=== PATIENT | female | born 1970 | race Caucasian/White ===

== ENCOUNTER 2024-04-23 07:21 | Inpatient (IN) | payer OTHER ==
[2024-04-23] VITALS (19 sets, daily range): BP systolic 94–133; BP diastolic 41–74; PULSE 64–123; RESP 17–24; TEMP 98.2–98.6; O2SAT 94–100
[~2024-04-23] VITALS: Ht 160 cm; Wt 113.6 kg
[2024-04-23] MEDS: ALBUTEROL SULF 2.5 MG/0.5ML(0.5%) NEB SOLN NEB ONE (07:37)
[2024-04-23] MEDS: ALBUTEROL SULF 2.5 MG/0.5ML(0.5%) NEB SOLN ONE (07:37)
[2024-04-23] MEDS: IPRATROPIUM BROM 0.5 MG/2.5ML INH SOL NEB ONE (07:40)
[2024-04-23] MEDS: MAGNESIUM SULFATE 1GM/100ML 100 ML IV ONE (07:41)
[2024-04-23] MEDS: methylPREDNISolone SOD SUCC 125 MG/2 ML VL IV ONE (07:41)
[2024-04-23 08:05] LABS: Rapid Influenza A Negative (Negative); Rapid Influenza B Negative (Negative)
[2024-04-23 08:05] LABS: Basophils # (auto) 0.1 10 ^3/uL (0-0.2); Basophils % (auto) 0.8 % (0.0-2.0); Eosinophils # (auto) 0.2 10 ^3/uL (0-0.8); Eosinophils % (auto) 2.4 % (0.0-7.0); Hematocrit 39.1 % (36.0-46.0); Hemoglobin 12.9 g/dL (12.2-16.2); Lymphocytes % (auto) 27.9 % (10.0-50.0); Mean Corpuscular Hemoglobin 30.3 pg (28.0-32.0); Mean Corpuscular Hgb Conc. 32.9 g/dL (32.0-36.0); Mean Corpuscular Volume 92.2 fL (80.0-100.0); Monocytes # (auto) 0.5 10 ^3/uL (0-1.3); Monocytes % (auto) 6.6 % (0.0-12.0); Neutrophils # (auto) 4.4 10 ^3/uL (1.6-8.6); Neutrophils % (auto) 62.3 % (37.0-80.0); Nucleated Red Blood Cells % 0.1 %; Platelet Count (auto) 189 10^3/uL (140-450); Red Blood Cells 4.24 10^6/uL (4.0-5.20); Red Cell Distribution Width 14.7 % (11.8-14.3)
[2024-04-23 08:06] LABS: COVID19 ANTIGEN SOFIA FIA NEGATIVE (NEGATIVE)
--- NOTE | 2024-04-23 08:06 | DVH ---
CHEST RADIOGRAPH Indication: sob Technique: Single frontal view of the chest was obtained Comparison: None FINDINGS: Lines and Tubes: None Lungs: No focal consolidation. Pleura: No effusion. No pneumothorax. Cardiomediastinal contours: Unremarkable Bones: No acute osseous abnormality. IMPRESSION: No acute cardiopulmonary disease.
--- NOTE | 2024-04-23 08:12 | ED.PDOC ---
SOB-HPI HPI Comments 53 y/o F, brought in by ambulance presents to the ED for CC of shortness of breath. Per EMS, patient is coming from home where she began to experience severe shortness of breath x hours. Per EMS, upon arrival to scene patient was found to be stating at 53% on room air; patient was placed on CPAP and stating in the 70's. Upon arrival to ED, patient stating and maintaining at low 90's. Patient is on 3L supplemental oxygen at home. No other symptoms or modifiers at this time. Chief Complaint: Shortness of Breath Time Seen by MD: 07:20 Primary Care Provider: UNKNOWN Reviewed notes: Nurses Notes, Obiee Architect Notes, Medications, Allergies Information Source: Patient, Emergency Med Personnel Mode of Arrival: EMS Severity: Moderate Timing: Hours Duration: Since onset Context: At Rest PE Risk Factors: None History of: COPD Prehospital treatment: None Modifying Factors: Nothing Associated Signs and Symptoms: None Past Medical History PAST MEDICAL HISTORY: COPD Surgical History: Denies all surgeries NEWS WRITER History: Unknown Family History Family History: Unknown Social History Smoker: Non-Smoker Alcohol: Denies ETOH Use Drugs: Denies Drug Use Lives In: Home Constitutional: denies: chills, diaphoresis, fatigue, fever, malaise, sweats, weakness, others EENTM: denies: blurred vision, double vision, ear bleeding, ear discharge, ear drainage, ear pain, ear ringing, eye pain, eye redness, hearing loss, mouth pain, mouth swelling, nasal discharge, nose bleeding, nose congestion, nose pain, photophobia, tearing, throat pain, throat swelling, voice changes, others Respiratory: reports: shortness of breath; denies: cough, hemoptysis, orth opnea, SOB at rest, SOB with excertion, stridor, wheezing, others Cardiovascular: denies: chest pain, dizzy spells, diaphoresis, Dyspnea on exertion, edema, irregular heart beat, left arm pain, lightheadedness, palpitations, PND, syncope, others Gastrointestinal: denies: abdomen distended, abdominal pain, blood streaked bowels, constipated, diarrhea, dysphagia, difficulty swallowing, hematemesis, melena, nausea, poor appetite, poor fluid intake, rectal bleeding, rectal pain, vomiting, others Genitourinary: denies: abnormal vagina bleeding, burning, dyspareunia, dysuria, flank pain, frequency, hematuria, incontinence, pain, , vagina discharge, urgency, others Neurological: denies: dizziness, fainting, headache, left sided numbness, left sided weakness, numbness, paresthesia, pre-existing deficit, right sided numbness, right sided weakness, seizure, speech problems, tingling, tremors, weakness, others Musculoskeletal: denies: back pain, gout, joint pain, joint swelling, muscle pain, muscle stiffness, neck pain, others Integumetry: denies: bruises, change in color, change in hair/nails, dryness, laceration, lesions, lumps, rash, wounds, others Allergic/Immunocompromised: denies: Difficulty Healing, Frequent Infections, Hives, Itching, others Hematologic/Lymphatic: denies: anemia, blood clots, easy bleeding, easy bruising, swollen glands, others Endocrine: denies: excessive hunger, excessive sweating, excessive thirst, excessive urination, flushing, intolerance to cold, intolerance to heat, unexplained weight gain, unexplained weight loss, others Psychiatric: denies: anxiety, bipolar disorder, depression, hopeless, panic disorder, schizophrenia, sleepless, suicidal, others All Other Systems: Reviewed and Negative Physical Exam General Appearance: Moderate Distress HEENT: Normal ENT Inspection, Pharynx Normal, TMs Normal Neck: Full Range of Motion, Non-Tender, Normal, Normal Inspection Respiratory: Accessory Muscle Use, Respiratory Distress Cardiovascular: No Edema, No JVD, No Murmur, No Gallop, Normal Peripheral Pulses, Regular Rate/Rhythm Breast Exam: Deferred Gastrointestinal: No Organomegaly, Non Tender, No Pulsatile Mass, Normal Bowel Sounds, Soft Genitalia: Deferred Pelvic: Deferred Rectal: Deferred Extremities: No calf tenderness, Normal capillary refill, Normal inspection, Normal range of motion, Non-tender, No pedal edema Musculoskeletal : Apperance: Normal Neurologic: Alert, No Motor Deficits, No Sensory Deficits Cerebellar Function: NOT DONE Reflexes: NOT DONE Skin: Dry, Normal Color, Warm Peripheral Pulses: 3+ Radial (R), 3+ Radial (L) Lymphatic: No Adenopathy Was a procedure done? Was a procedure done?: No Differential Dx Differential Diagnosis: Anxiety, Asthma, Bronchitis, CHF, COPD, Hyperventilation, Respiratory Distress X-Ray, Labs, Meds, VS Vital Signs Date Time Temp Pulse Resp B/P (MAP) Pulse Ox O2 Delivery O2 Flow Rate FiO2 04/23/24 08:30 110 140/91 Facial BiPAP Mask 50 04/23/24 08:00 124 04/23/24 07:57 123 24 95 Non-Rebreather 10 N/A 04/23/24 07:56 97.6 123 36 140/91 (107) 97 97.6 04/23/24 07:41 22 99 Non-Rebreather 15 N/A 04/23/24 07:28 114 04/23/24 07:21 99.4 114 30 140/91 (107) 90 Lab Test 04/23/24 08:55 04/23/24 08:40 04/23/24 08:25 04/23/24 07:37 Range/Units Blood Gas Specimen Type Arterial Blood Gas Sample Site Right radial Blood Gas Patient Temperature 37.0 Arterial Blood Date Drawn [id number] Arterial Blood pH 7.279 L 7.350-7.450 Arterial Blood Partial Pressure CO2 90.8 *H 32.0-45.0 mmHg Arterial Blood Partial Pressure O2 79.0 L 83.0-108.0 mmHg Arterial Blood HCO3 41.6 H 21.0-28.0 mmol/L Arterial Blood Oxygen Saturation 95.1 94.0-98.0 % Arterial Blood Base Excess 11.1 H -2.0-3.0 mmol/L Arterial Blood Oxyhemoglobin 89.9 L 94.0-98.0 % Arterial Blood Carboxyhemoglobin 5.2 H 0.5-1.5 % Arterial Blood Methemoglobin 0.3 0.0-1.5 % Song Test Yes Blood Gas Total Hemoglobin 13.30 12.0-16.0 g/dL Blood Gas Modality Mask - bipap FiO2 % 50.0 Blood Gas EPAP 7 Blood Gas IPAP 15 Blood Gas Critical Value Read Back Yes Blood Gas Notified Whom Md jerry worthington Blood Gas Notified Time [id number] Blood Gas Notified By Digital Community Manager juarez quintero Lactic Acid Level 1.0 0.4-2.0 mmol/L Troponin I High Sensitivity 4 </=34 ng/L Influenza Type A Antigen Negative Negative Influenza Type B Antigen Negative Negative SARS-CoV-2 Antigen (Rapid) Negative NEGATIVE Test 04/23/24 07:30 Range/Units White Blood Count 7.0 4.4-10.8 10^3/uL Red Blood Count 4.24 4.0-5.20 10^6/uL Hemoglobin 12.9 12.2-16.2 g/dL Hematocrit 39.1 36.0-46.0 % Mean Corpuscular Volume 92.2 80.0-100.0 fL Mean Corpuscular Hemoglobin 30.3 28.0-32.0 pg Mean Corpuscular Hemoglobin Concent 32.9 32.0-36.0 g/dL Red Cell Distribution Width 14.7 H 11.8-14.3 % Platelet Count 189 140-450 10^3/uL Mean Platelet Volume 9.8 6.9-10.8 fL Neutrophils (%) (Auto) 62.3 37.0-80.0 % Lymphocytes (%) (Auto) 27.9 10.0-50.0 % Monocytes (%) (Auto) 6.6 0.0-12.0 % Eosinophils (%) (Auto) 2.4 0.0-7.0 % Basophils (%) (Auto) 0.8 0.0-2.0 % Neutrophils # (Auto) 4.4 1.6-8.6 10 ^3/uL Lymphocytes # (Auto) 2.0 0.4-5.4 10 ^3/uL Monocytes # (Auto) 0.5 0-1.3 10 ^3/uL Eosinophils # (Auto) 0.2 0-0.8 10 ^3/uL Basophils # (Auto) 0.1 0-0.2 10 ^3/uL Nucleated Red Blood Cells 0.1 % Sodium Level 140 136-145 mmol/L Potassium Level 4.1 3.5-5.1 mmol/L Chloride Level 96 L 98-107 mmol/L Carbon Dioxide Level > 40 *H 20-31 mmol/L Anion Gap 3.93561 L 5-15 Blood Urea Nitrogen 13 9-23 mg/dL Creatinine 0.85 0.550-1.02 mg/dL Glomerular Filtration Rate Calc 81 >90 mL/min BUN/Creatinine Ratio 15.3 10.0-20.0 Serum Glucose 99 74-106 mg/dL Calcium Level 9.8 8.7-10.4 mg/dL Troponin I High Sensitivity 4 </=34 ng/L Current Medications Medications (Trade) Dose Ordered Sig/Vidhya Route Start Time Stop Time Status Last Admin Methylprednisolone Sodium Succinate (Solu Medrol) 125 mg ONCE ONCE IV 04/23/24 07:45 04/23/24 07:46 DC 04/23/24 07:41 Ipratropium [place] (Atrovent Medneb) 0.5 mg ONCE ONCE NEB 04/23/24 07:45 04/23/24 07:46 DC 04/23/24 07:40 Magnesium Sulfate/ Dextrose 100 ml @ 100 mls/hr ONCE ONCE IV 04/23/24 07:45 04/23/24 08:44 DC 04/23/24 07:41 [place] [address] Ph: [phone] DIAGNOSTIC IMAGING Diagnostic Imaging Report : [id number] Signed PATIENT: RAUL MCGILL ACCT: [id number] UNIT: [id number] : 1970 LOC: ER ROOM / BED: / AGE / SEX: 53 / F ADM STATUS: REG ER SERVICE 4 ORDERING PHYSICIAN: IGLESIA SANTILLAN MD PROCEDURE(s): CXRP - CHEST PORTABLE REASON: sob ORDER NUMBER(s): [id number], ACCESSION NUMBER(s): [id number] CHEST RADIOGRAPH Indication: sob Technique: Single frontal view of the chest was obtained Comparison: None FINDINGS: Lines and Tubes: None Lungs: No focal consolidation. Pleura: No effusion. No pneumothorax. Cardiomediastinal contours: Unremarkable Bones: No acute osseous abnormality. IMPRESSION: No acute cardiopulmonary disease. ATED BY: ALICIA SINGH MD DICTATED DATE/TIME: 04/23/24802 SIGNED BY: ALICIA SINGH MD SIGNED DATE/TIME: 04/23/24802 CC: Patient alert. Respiratory distress. Chest x-ray reviewed does not show any acute process. Placed on CPAP. She does not answer questions. CO2 is high. Continues to smoke cigarettes. Placed on BiPAP. Getting more altered. Possible CO2 narcosis. Waiting for family. ABG to be followed. EKG reviewed does not show any acute changes. Will continue to monitor. She will need counseling on smoking cessation. She is on home oxygen. Reviewed her previous visit. Continue cardiac monitoring. Time of 1ST Reevaluation: 07:50 Reevaluation 1ST: Unchanged Patient Education/Counseling: Diagnosis, Treatment Family Education/Counseling: No Family Present Departure 1 Departure Time of Disposition: 09:45 Impression: Primary Impression: Acute respiratory failure Qualified Codes: J96.01 - Acute respiratory failure with hypoxia; J96.02 - Acute respiratory failure with hypercapnia Additional Impressions: COPD exacerbation Metabolic encephalopathy Disposition: ADMITTED INPATIENT Admit to: Med Surg Condition: Guarded Critical Care Note Critical Care Time?: Yes (90 min-critical care time only) Stability Stability form required: No Heart Score Heart Score: Heart Score Response (Comments) Value History Slightly Suspicious 0 EKG Normal 0 Age 45-64 1 Risk Factors >3 or Hx ASHD 2 Troponin Normal limit 0 Total 3 I personally scribed for IGLESIA SANTILLAN MD ([email or web address]) on 04/23/24 at 08:12. Electronically submitted by Jeri Martins ([email or web address]). I personally scribed for IGLESIA SANTILLAN MD ([email or web address]) on 04/23/24 at 08:23. Electronically submitted by Jeri Martins ([email or web address]). IGLESIA SANTILLAN MD Apr 23, 2024 08:12
[2024-04-23 08:19] LABS: Potassium 4.1 mmol/L (3.5-5.1); Sodium 140 mmol/L (136-145)
[2024-04-23 08:20] LABS: Calcium 9.8 mg/dL (8.7-10.4)
[2024-04-23 08:23] LABS: Anion Gap 3.99999 (5-15); Chloride 96 mmol/L (98-107)
[2024-04-23 08:25] LABS: BUN/Creatinine Ratio 15.3 (10.0-20.0); Blood Urea Nitrogen 13 mg/dL (9-23); Carbon Dioxide > 40 mmol/L (20-31); Glucose 99 mg/dL (74-106)
[2024-04-23 09:03] LABS: Base Excess 11.1 mmol/L (-2.0-3.0)
--- NOTE | 2024-04-23 09:04 | ECG ---
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
[2024-04-23 10:49] LABS: Base Excess 9.9 mmol/L (-2.0-3.0)
[2024-04-23] MEDS: ETOMIDATE (2MG/ML) 20ML VIAL IV ONE ×2 (10:59→11:02)
[2024-04-23] MEDS: ROCURONIUM 10MG/ML 10ML VIAL IV ONE ×2 (10:59→11:01)
[2024-04-23] MEDS: MIDAZOLAM DRIP 50 mg/50mL 50 ML IV ONE (11:00)
[2024-04-23] MEDS: MIDAZOLAM DRIP 50 mg/50mL 50 ML IV SCH (11:00)
--- NOTE | 2024-04-23 12:11 | DVH ---
CHEST RADIOGRAPH Indication: INTUBATION Technique: Single frontal view of the chest was obtained COMPARISON: XY CHEST PORTABLE on DOS: 04/23/24 FINDINGS: Endotracheal tube is identified with its tip in the right mainstem bronchus about 13 mm distal to the jazmyne. OG tube is identified with its tip in the stomach about 6 cm distal to the GE junction. Left IJ central line is identified with its tip in the upper SVC. No pneumothorax, pulmonary edema, or co nsolidative infiltrates. The heart is enlarged. Abundant overlying soft tissue obscures evaluation of fine detail. IMPRESSION: 1. Endotracheal tube tip is in the right mainstem bronchus about 13 mm distal to the jazmyne. Recomme nd pulling back the endotracheal tube 3 cm then repeating chest x-ray. 2. OG tube tip is in the stomach. 3. Left IJ central line in good position without pneumothorax. 4. Cardiomegaly and obesity.
[2024-04-23 12:16] LABS: Urine Bacteria None Seen /hpf (None Seen)
[2024-04-23 12:32] LABS: Urine Blood Negative /uL (Negative); Urine Clarity Clear (Clear); Urine Color Colorless (Yellow); Urine Protein, UAD Negative (Negative); Urine Specific Gravity 1.007 (1.001-1.035); Urine Squamous Epithelial Cell None Seen /hpf (<5); Urine Urobilinogen Normal (Negative); Urine WBC 2 /HPF (0-5)
[2024-04-23] MEDS: PROPOFOL 100 ML IV ONE (12:47)
[2024-04-23] MEDS: PROPOFOL 100 ML IV SCH (12:50)
[2024-04-23] MEDS: NOREPINEPHRINE 8 MG/250ML KIT 250 ML IV SCH (13:21)
[2024-04-23] MEDS: NOREPINEPHRINE 8 MG/250ML KIT 250 ML IV ONE (13:31)
--- NOTE | 2024-04-23 14:06 | DVH ---
EXAM: XY CHEST PORTABLE TECHNIQUE: Single frontal chest radiograph CLINICAL HISTORY: NG TUBE PLACEMENT COMPARISON: XY CHEST PORTABLE on DOS: 04/23/24, XY CHEST PORTABLE on DOS: 04/23/24 Findings/Impression: Frontal chest radiograph demonstrates no acute osseous or superficial soft tissue abnormalities. Enteric tube is overlying the plane of the stomach. Left sided IJ catheter terminates near the proximal SVC. The trachea is midline. The cardiac silhouette and mediastinum are within normal limits. Bibasilar atelectasis. No pneumothorax, pleural effusions, or consolidations.
--- NOTE | 2024-04-23 18:41 | DVHNC2 ---
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) Indication: Hypotension, CVP monitoring, Volume resuscitation, Inability to obtain IV Room prepared for procedure: Yes Marine Pipe Welder performed hand hygien: Yes Maximal sterile barrier precau: Mask/Eye shield, Sterile gown, Cap, Sterlie gloves, Large sterlie drape Skin Preparation: Chlorhexidine gluconate Skin preparation completely dr: Yes Insertion site: Left, Internal jugular Central line catheter type: Rpx-[id number] dialysis Number of lumens: 3 Central line exchanged over a: No Antiseptic ointment applied to: Yes Post Assessment: Chest X-Ray, Proper placement, No Pneumothorax Informed consent obtained: No Risks/benefits/alt described: No UTO Consent Could not obtain informed consent since patient was altered. Had to intubate and place central line urgently to protect airway and obtain good IV access. Procedure supervised by Dr. Santillan Date of Service: Apr 23, 2024 Billing Provider: IGLESIA SANTILLAN MD Common Visit Codes: PROCEDURE ONLY Procedure Codes: 81233-BDSXCM NON-TUNNEL CV CATH LAYLA ALMEIDA RESIDENT Apr 23, 2024 18:41
--- NOTE | 2024-04-23 18:42 | DVHNC2 ---
Intubation Indication: Respiratory Insufficiency, Altered Mental Status, Airway Protection Prep: Preoxygenation Pretreated with: Sedation Medicated with: Other (Etomidate and rocuronium) Intubation Approach: Orotracheal Intubation size: cm (8) Informed consent obtained: No Risks/benefits/alt described: No UTO Consent Could not obtain informed consent since patient was altered. Had to intubate and place central line urgently to protect airway and obtain good IV access. Procedure supervised by Dr. Santillan Date of Service: Apr 23, 2024 Billing Provider: IGLESIA SANTILLAN MD Common Visit Codes: PROCEDURE ONLY Procedure Codes: [id number] LAYLA ALMEIDA Apr 23, 2024 18:42
[2024-04-23] MEDS ORDERED: ACETAMINOPHEN 325 MG TAB PO PRN (19:45)
[2024-04-23] MEDS ORDERED: ONDANSETRON HCL 4 MG/2 ML VIAL IV PRN (19:45)
[2024-04-23] MEDS ORDERED: MORPHINE SULFATE INJ 2 MG/ml SYRG IV PRN (19:45)
[2024-04-23] MEDS ORDERED: NITROGLYCERIN 0.4 MG SL TAB SL PRN (19:45)
[2024-04-23] MEDS: D5W/SOD CHLO 0.9% 1,000 ML IV ONE (21:48)
[2024-04-24] VITALS (104 sets, daily range): BP systolic 81–163; BP diastolic 36–106; PULSE 63–105; RESP 19–25; TEMP 68.7–99.3; O2SAT 91–100
[2024-04-24] MEDS: IPRATROPIUM BROM 0.5 MG/2.5ML INH SOL NEB PRN (00:42)
[2024-04-24] MEDS: ALBUTEROL SULF 2.5 MG/0.5ML(0.5%) NEB SOLN NEB SCH ×2 (00:42→21:57)
--- NOTE | 2024-04-24 01:10 | DVHHP2 ---
History of Present Illness Reason for Visit: Shortness of breath History of Present Illness 53-year-old female presents for evaluation of shortness for breath. Patient with a history of COPD presented with worsening shortness for breath ongoing for one day. Patient was using her nebulizer and inhaler home without relief of the symptoms. Patient was saturating in the 70s on arrival. She was placed on BiPAP initially and became progressively more confused taking off her mask.. She was emergently intubated for airway protection. Past Medical History COPD Past Surgical History Unknown Family History Noncontributory Smoke: No ALCOHOL: none Drugs: None Lives: with Family Review of Systems Review of Systems Review of systems are currently negative otherwise addressed in HPI. Allergies: Coded Allergies: Azithromycin (Verified Allergy, Unknown, 04/23/24) Medications Current Medications Medications Dose Ordered Sig/Vidhya Route Start Time Stop Time Status Last Admin Dose Admin Midazolam HCl 50 ml @ 1 mls/hr Q24H IV 04/23/24 11:00 04/23/24 23:03 15 MLS/HR Propofol 100 ml @ 3.483 mls/ hr Q24H IV 04/23/24 12:45 04/24/24 00:18 24.381 MLS/HR Norepinephrine Bitartrate 250 ml @ 3.75 mls/hr Q24H IV 04/23/24 13:30 04/23/24 13:21 3.75 MLS/HR Albuterol 2.5 mg Q6HR NEB 04/24/24 00:00 04/24/24 00:42 2.5 MG Ipratropium [place] 0.5 mg Q6HPRN PRN NEB 04/23/24 19:45 04/24/24 00:42 0.5 MG Ondansetron HCl 4 mg Q4HP PRN IV 04/23/24 19:45 Enoxaparin Sodium 40 mg DAILY SC 04/24/24 10:00 Acetaminophen 650 mg Q6HP PRN PO 04/23/24 19:45 Nitroglycerin 0.4 mg Q5MINP PRN SL 04/23/24 19:45 Morphine Sulfate 2 mg Q30M PRN IV 04/23/24 19:45 Exam Vital Signs Vital Signs Date Time Temp Pulse Resp B/P (MAP) Pulse Ox O2 Delivery O2 Flow Rate FiO2 04/24/24 00:45 97.9 69 22 100 208.2 04/24/24 00:00 55 04/24/24 00:00 Mechanical Ventilator+ 04/23/24 07:57 10 Exam Gen: 53-year-old female in mild distress Skin: Warm, dry, normal color and texture, no rash. HEENT: Normocephalic atraumatic, mucous membranes moist and pink. Neck: Cervical and supraclavicular nodes normal without enlargement, trachea is midline, thyroid gland is normal without masses. Pulmonary: Intubated, diminished breath sounds bilaterally. Cardiac: Regular rate and rhythm. No murmur Abdomen: Soft, nontender, nondistended, bowel sounds present all 4 quadrants, no guarding, no rigidity, no organomegaly. Extremities: No cyanosis, clubbing, no edema Neuro: Sedated Labs/Xrays ORDERING PHYSICIAN: IGLESIA SANTILLAN MD PROCEDURE(s): CXRP - CHEST PORTABLE REASON: NG TUBE PLACEMENT ORDER NUMBER(s): [id number], ACCESSION NUMBER(s): [id number] EXAM: XY CHEST PORTABLE TECHNIQUE: Single frontal chest radiograph CLINICAL HISTORY: NG TUBE PLACEMENT COMPARISON: XY CHEST PORTABLE on DOS: 04/23/24, XY CHEST PORTABLE on DOS: 04/23/24 Findings/Impression: Frontal chest radiograph demonstrates no acute osseous or superficial soft tissue abnormalities. Enteric tube is overlying the plane of the stomach. Left sided IJ catheter terminates near the proximal SVC. The trachea is midline. The cardiac silhouette and mediastinum are within normal limits. Bibasilar atelectasis. No pneumothorax, pleural effusions, or consolidations. Labs Test 04/23/24 12:23 04/23/24 11:13 04/23/24 10:43 04/23/24 08:40 Range/Units Blood Gas Specimen Type Arterial Blood Gas Sample Site Left radial Blood Gas Patient Temperature 37.0 Arterial Blood Date Drawn [id number] Arterial Blood pH 7.432 7.350-7.450 Arterial Blood Partial Pressure CO2 55.9 H 32.0-45.0 mmHg Arterial Blood Partial Pressure O2 54.1 *L 83.0-108.0 mmHg Arterial Blood HCO3 36.4 H 21.0-28.0 mmol/L Arterial Blood Oxygen Saturation 91.2 L 94.0-98.0 % Arterial Blood Base Excess 10.0 H -2.0-3.0 mmol/L Arterial Blood Oxyhemoglobin 87.2 L 94.0-98.0 % Arterial Blood Carboxyhemoglobin 3.8 H 0.5-1.5 % Arterial Blood Methemoglobin 0.6 0.0-1.5 % Song Test Modified Blood Gas Total Hemoglobin 14.60 12.0-16.0 g/dL Blood Gas Set Respiration Rate 22.0 Blood Gas Modality Vent - ac FiO2 % 50.0 Blood Gas Tidal Volume 500.0 Blood Gas PEEP or CPAP 5.0 Blood Gas Critical Value Read Back Yes Blood Gas Notified Whom Md gil worthington Blood Gas Notified Time [id number] Blood Gas Notified By Machine Joint Cutter juarez quintero Urine Color Colorless Yellow Urine Clarity Clear Clear Urine pH 6.0 5.0-9.0 Urine Specific [place] 1.007 1.001-1.035 Urine Protein Negative Negative Urine Ketones Negative Negative Urine Blood Negative Negative /uL Urine Nitrite Negative Negative Urine Bilirubin Negative Negative Urine Urobilinogen Normal Negative mg/dL Urine Leukocyte Esterase Negative Negative /uL Urine RBC 1 0 - 4 /hpf Urine Microscopic WBC 2 0-5 /HPF Urine Squamous Epithelial Cells None seen <5 /hpf Urine Bacteria None seen None Seen /hpf Urine Glucose Normal Normal mg/dL Blood Gas Pressure Support 8 Blood Gas EPAP 7 Blood Gas IPAP 15 Lactic Acid Level 1.0 0.4-2.0 mmol/L Test 04/23/24 08:25 04/23/24 07:37 04/23/24 07:30 Range/Units Troponin I High Sensitivity 4 </=34 ng/L Influenza Type A Antigen Negative Negative Influenza Type B Antigen Negative Negative SARS-CoV-2 Antigen (Rapid) Negative NEGATIVE White Blood Count 7.0 4.4-10.8 10^3/uL Red Blood Count 4.24 4.0-5.20 10^6/uL Hemoglobin 12.9 12.2-16.2 g/dL Hematocrit 39.1 36.0-46.0 % Mean Corpuscular Volume 92.2 80.0-100.0 fL Mean Corpuscular Hemoglobin 30.3 28.0-32.0 pg Mean Corpuscular Hemoglobin Concent 32.9 32.0-36.0 g/dL Red Cell Distribution Width 14.7 H 11.8-14.3 % Platelet Count 189 140-450 10^3/uL Mean Platelet Volume 9.8 6.9-10.8 fL Neutrophils (%) (Auto) 62.3 37.0-80.0 % Lymphocytes (%) (Auto) 27.9 10.0-50.0 % Monocytes (%) (Auto) 6.6 0.0-12.0 % Eosinophils (%) (Auto) 2.4 0.0-7.0 % Basophils (%) (Auto) 0.8 0.0-2.0 % Neutrophils # (Auto) 4.4 1.6-8.6 10 ^3/uL Lymphocytes # (Auto) 2.0 0.4-5.4 10 ^3/uL Monocytes # (Auto) 0.5 0-1.3 10 ^3/uL Eosinophils # (Auto) 0.2 0-0.8 10 ^3/uL Basophils # (Auto) 0.1 0-0.2 10 ^3/uL Nucleated Red Blood Cells 0.1 % Sodium Level 140 136-145 mmol/L Potassium Level 4.1 3.5-5.1 mmol/L Chloride Level 96 L 98-107 mmol/L Carbon Dioxide Level > 40 *H 20-31 mmol/L Anion Gap 3.47307 L 5-15 Blood Urea Nitrogen 13 9-23 mg/dL Creatinine 0.85 0.550-1.02 mg/dL Glomerular Filtration Rate Calc 81 >90 mL/min BUN/Creatinine Ratio 15.3 10.0-20.0 Serum Glucose 99 74-106 mg/dL Calcium Level 9.8 8.7-10.4 mg/dL Assessment/Plan Assessment/Plan Assessment Acute hypoxic/hypercapnic respiratory failure COPD exacerbation Morbid obesity Plan Admit the patient to ICU to the hospitalist Tyrel whittaker Pulmonary consultation Resume home medications Continue treatment per orders Total critical care time excluding procedures performed is 55 minutes. Plan discussed with: Patient My Orders Orders - ANUJ KELLY Procedure Category Date Status Time D5w/Sod Chlo 0.9% PHA 04/23/24 In Process (D5w Ns 0.9%) 19:45 Albuterol Medneb PHA 04/24/24 In Process (Ventolin Medneb) 00:00 Ipratropium Medneb PHA 04/23/24 In Process (Atrovent Medneb) 19:45 Basic Metabolic Panel LAB 04/24/24 Logged 04:00 Admit ADMIT 04/23/24 Transmitted 19:41 Ondansetron Hcl PHA 04/23/24 In Process (Zofran) 19:45 Enoxaparin Sodium PHA 04/24/24 In Process (Lovenox) 10:00 Complete Blood Count LAB 04/24/24 Logged 04:00 Condition: Critical KIKA 04/23/24 In Process 19:41 Acetaminophen Tablet PHA 04/23/24 In Process (Tylenol Tablet) 19:45 Maintain Bed Rest KIKA 04/23/24 In Process 19:41 Sequential KIKA 04/23/24 In Process Compression Device Nitroglycerin PHA 04/23/24 In Process Sublingual (Ntrostat 19:45 Morphine Sulfate PHA 04/23/24 In Process Injection 19:45 Stat Ekg For Chest KIKA 04/23/24 In Process Pain 19:41 Notify Md Of Changes KIKA 04/23/24 In Process From Base 19:41 Commercial Retoucher For KIKA 04/23/24 In Process 24 Hours 19:41 Emergency Dysrhythmia KIKA 04/23/24 In Process Protocol 19:41 Rhythm Strips Once KIKA 04/23/24 In Process Every Shift 19:41 Oxygen By Nasal RT 04/23/24 Transmitted Cannula 19:41 * Quality Systems Engineer CONS 04/23/24 Transmitted Consult 22:51 Mrsa Screen ELENA 04/23/24 Uncollected 22:51 * Dietary Consult CONS 04/23/24 Transmitted 22:51 Mrsa Screen ELENA 04/23/24 In Process 23:30 Date of Service: Apr 23, 2024 Billing Provider: ANUJ KELLY Common Visit Codes: [id number] CARE 30-74 MIN ANUJ KELLY Apr 24, 2024 01:10
[2024-04-24 04:10] LABS: Basophils # (auto) 0 10 ^3/uL (0-0.2); Basophils % (auto) 0.2 % (0.0-2.0); Eosinophils # (auto) 0 10 ^3/uL (0-0.8); Hematocrit 37.8 % (36.0-46.0); Hemoglobin 12.3 g/dL (12.2-16.2); Lymphocytes # (auto) 0.9 10 ^3/uL (0.4-5.4); Lymphocytes % (auto) 7.2 % (10.0-50.0); Mean Corpuscular Hemoglobin 29.6 pg (28.0-32.0); Mean Corpuscular Hgb Conc. 32.6 g/dL (32.0-36.0); Mean Corpuscular Volume 90.9 fL (80.0-100.0); Monocytes % (auto) 7.5 % (0.0-12.0); Neutrophils # (auto) 10.8 10 ^3/uL (1.6-8.6); Neutrophils % (auto) 85.1 % (37.0-80.0); Nucleated Red Blood Cells % 0.1 %; Platelet Count (auto) 202 10^3/uL (140-450); Red Blood Cells 4.16 10^6/uL (4.0-5.20); Red Cell Distribution Width 14.7 % (11.8-14.3); White Blood Cell 12.7 10^3/uL (4.4-10.8)
[2024-04-24 04:14] LABS: Chloride 101 mmol/L (98-107); Potassium 3.7 mmol/L (3.5-5.1); Sodium 142 mmol/L (136-145)
[2024-04-24 04:15] LABS: Anion Gap 7 (5-15); Calcium 10.2 mg/dL (8.7-10.4)
[2024-04-24 04:20] LABS: BUN/Creatinine Ratio 18.2 (10.0-20.0); Blood Urea Nitrogen 14 mg/dL (9-23); Carbon Dioxide 34 mmol/L (20-31); Glucose 117 mg/dL (74-106)
--- NOTE | 2024-04-24 05:12 | DVH ---
EXAM: XR Chest, 1 View CLINICAL INDICATION: PROTOCOL TECHNIQUE: Frontal view of the chest. COMPARISON: XY CHEST PORTABLE on DOS: 04/23/24, XY CHEST PORTABLE on DOS: 04/23/24, XY CHEST PORTABLE on DOS: 04/23/24 FINDINGS: LUNGS AND PLEURAL SPACES: Unremarkable. No consolidation. No pneumothorax. HEART: Unremarkable. No cardiomegaly. MEDIASTINUM: Unremarkable. Normal mediastinal contour. BONES/JOINTS: Unremarkable. No acute fracture. TUBES, LINES AND DEVICES: The endotracheal tube (ETT) is in satisfactory position. Left internal ju gular central venous catheter tip in the superior vena cava. Enteric tube tip in the stomach. OTHER FINDINGS: . Mild CHF. IMPRESSION: No acute cardiopulmonary process.
[2024-04-24] MEDS: ENOXAPARIN SOD 40 MG/0.4 ML SYRINGE SC SCH (09:05)
[2024-04-24] MEDS: fentaNYL Drip 2500mCg/250mlNS 250 ML IV SCH (11:00)
[2024-04-24] MEDS: PANTOPRAZOLE 40 MG/10 ML VIAL INJ IV ONE (11:03)
--- NOTE | 2024-04-24 11:35 | DVHPNRES ---
Progress Note Date Seen: Apr 24, 2024 Resident Creating Document: HERMILO MENDEZ RESIDENT Medical Necessity Reason Pt with a Central, PICC or Fol: Yes The following are medically ne: Central Line, Georges Catheter Subjective Review of Systems DEISI MCGILL is a 53-year-old female with a PMH of COPD on home oxygen 3L presented to the ED with the chief complaints of shortness of breath. Patient is currently sedated, intubated and on mechanical ventilation so history obtained from medical records which showed patient has been having worsening of shortness of breath for past 1-2 days. Patient was using nebulizer and inhaler but did not show any relief, which prompted her to visit ED, her saturation was 70s on arrival and placed on BiPAP, progressively become more confused so to protect airway patient intubated. Some history obtained from the son on phone call, stated she does have history of CHF, 6 months back cardiac arrest status post resuscitation with some hypoxic brain damage, intubated 2-3 times in past And she is active smoker smokes 1.5 pack cigarettes per day for long time. Patient seen and examined at the bedside. Unable to obtain ROS due to patient's clinical status. Currently sedated, intubated on mechanical ventilation. Continuously monitoring. Currently giving Zosyn and methylprednisolone 40 mg IV, ordered echocardiogram. Changes from previous H/P or p: No Changes Objective vital signs Vital Sign Date Time Temp Pulse Resp B/P (MAP) Pulse Ox O2 Delivery O2 Flow Rate FiO2 04/24/24 11:05 112/64 04/24/24 10:15 102 22 95 40 04/24/24 08:00 Mechanical Ventilator+ 04/24/24 06:30 68.7 155.7 04/23/24 07:57 10 Total Intake and Output 04/23/24 04/23/24 04/24/24 15:00 23:00 07:00 Intake Total 100 ml 175.631 ml 1076 ml Output Total 1600 ml 1300 ml Balance 100 ml -1424.369 ml -224 ml medications Current Medications Medications Dose Ordered Sig/Vidhya Route Start Time Stop Time Status Last Admin Dose Admin Midazolam HCl 50 ml @ 1 mls/hr Q24H IV 04/23/24 11:00 04/24/24 11:05 15 MLS/HR Propofol 100 ml @ 3.483 mls/ hr Q24H IV 04/23/24 12:45 04/24/24 10:48 27.864 MLS/HR Norepinephrine Bitartrate 250 ml @ 3.75 mls/hr Q24H IV 04/23/24 13:30 04/24/24 07:51 11.25 MLS/HR Albuterol 2.5 mg Q6HR NEB 04/24/24 00:00 04/24/24 06:27 2.5 MG Ipratropium [place] 0.5 mg Q6HPRN PRN NEB 04/23/24 19:45 04/24/24 06:27 0.5 MG Enoxaparin Sodium 40 mg DAILY SC 04/24/24 10:00 04/24/24 09:05 40 MG Acetaminophen 650 mg Q6HP PRN PO 04/23/24 19:45 Pantoprazole Sodium 40 mg DAILY IV 04/25/24 10:00 Fentanyl Citrate 250 ml @ 2.5 mls/hr Q24H IV 04/24/24 10:45 04/24/24 11:00 2.5 MLS/HR Doxycycline Hyclate 100 ml @ 50 mls/hr Q12H IV 04/24/24 11:15 Examination Pt is lying on bed General Appearance:Currently sedated, intubated on mechanical ventilation HEENT: Atraumatic, Mucous membranes moist/pink Respiratory: Wheezing, Normal air movement on Mechanical ventilation Cardiovascular: Regular rate, Normal S1, Normal S2 Abdominal: Active bowel sounds, Soft, no distention, no tenderness Extremities: 1 to 2+ edema in BLE, redness, warmth Skin: No Significant rash Neuro: pupils are constricted, brisk, sedated Psych/Mental Status: Mental status NL, Mood NL Nurse was there as sharperone during examination laboratory and microbiology Laboratory Tests 04/24/24 03:00 Test 04/24/24 03:00 Range/Units Serum Glucose 117 H 74-106 mg/dL Microbiology Date/Time Source Procedure Growth Status 04/23/24 08:40 Blood Blood Culture - Preliminary NO GROWTH AFTER 24 HOURS OF INCUBATION. Resulted Labs and/or images reviewed: Labs reviewed by me, Image(s) reviewed by me Problem List/Assessment/Plan Problem List/Assessment/Plan NEUROLOGY # Acute metabolic/toxic encephalopathy CARDIOLOGY # Chronic CHF unspecified type, - pending echocardiogram - BNP WNL # Shock likely sepsis - currently on Versed, Diprivan, fentanyl and Levophed - initiated Zosyn RESPIRATORY # Acute on chronic hypoxic/hypercapnic respiratory failure s/p intubation # COPD exacerbation # ? Septic shock - ICU status - intubated, sedated, on mechanical ventilation - RR 22, VT 500, FiO2 40%, peep 5 - currently on Versed, Diprivan, fentanyl and Levophed - initiated Zosyn - DC IVF - Monitor lab - Patient received 1 dose of methylprednisolone 125 mg - Staretd methylpred 40 mg GI/LIVER # morbid obesity with a BMI 47.1 - nutritional consult /KIDNEY/METABOLIC MSK # cellulitis bilateral lower extremity -on Zosyn # Osteoarthritis # ruled out DVT - ordered venous scan -negative scan [facility] ENDOCRINE # Vit D deficiency - Repleting SKIN # Tobacco abuse disorder # Tobacco dependence LINES Left IJ CVC 04/23 Georges 04/23 DRIPS Levophed Versed Diprivan Fentanyl NUTRITION Jevity 30 mL/hour PUD ppx: Protonix VTE ppx: Lovenox Goals of care discussed with the family for more than 27 minutes: Full code status Critical care time including chart review, discussing with the patient's family excluding procedures: 87 minutes Case discussed with Dr. Vance Plan discussed with: Son My Orders My Orders Orders - HERMILO MENDEZ RESIDENT Procedure Category Date Status Time Urine Bacterial ELENA 04/24/24 Uncollected Culture 10:10 Comprehensive LAB 04/24/24 Logged Metabolic Panel 10:10 Thyroid Stimulating LAB 04/24/24 Logged Hormone 10:10 Vitamin B12 LAB 04/24/24 Logged 10:10 Vitamin D, 25-Hydroxy LAB 04/24/24 Logged 10:10 PTPTT LAB 04/24/24 Logged 10:10 Lactic Acid W/ Reflex LAB 04/24/24 Logged Order 10:10 Hemoglobin A1c LAB 04/24/24 Logged 10:10 Drug Screen LAB 04/24/24 Logged 10:10 B-Type Natriuretic LAB 04/24/24 Logged Peptide 10:10 Pantoprazole PHA 04/25/24 In Process (Protonix) 10:00 D-Dimer LAB 04/24/24 Logged 10:31 Fentanyl Drip PHA 04/24/24 In Process 2500mcg/250mlns 10:45 Doxycycline PHA 04/24/24 In Process 100mg/100ml 11:15 Date of Service: Apr 24, 2024 Billing Provider: ANUJ VANCE MD Common Visit Codes: [id number] CARE 30-74 MIN, [id number] CARE-EACH +30MIN ANTHONY MENDEZArtemBERNARDA RESIDENT Apr 24, 2024 11:35 ANUJ VANCE MD Apr 25, 2024 12:34
[2024-04-24] MEDS: DOXYCYCLINE 100MG/100ML 100 ML IV SCH (12:18)
[2024-04-24 12:19] LABS: Albumin 3.9 g/dL (3.2-4.8); Alkaline Phosphatase 73 U/L (46-116); Anion Gap 6 (5-15); Aspartate Aminotransferase 15 U/L (13-40); BUN/Creatinine Ratio 18.2 (10.0-20.0); Blood Urea Nitrogen 16 mg/dL (9-23); Calcium 9.6 mg/dL (8.7-10.4); Chloride 102 mmol/L (98-107); Glucose 98 mg/dL (74-106); INR 1.01 (0.9-1.15); Partial Thromboplastin Time 24.5 SEC (24.5-34.5); Potassium 3.8 mmol/L (3.5-5.1); Prothrombin Time 10.7 sec (9.3-11.8); Sodium 142 mmol/L (136-145)
[2024-04-24 12:20] LABS: Bilirubin, Total 0.3 mg/dL (0.2-1.0); Lactic Acid w/Reflex 2.2 mmol/L (0.4-2.0); Total Protein 6.4 g/dL (5.7-8.2)
[2024-04-24 12:21] LABS: Alanine Aminotransferase < 9 U/L (7-40); Carbon Dioxide 34 mmol/L (20-31)
[2024-04-24 13:03] LABS: Amphetamine Screen, Urine Neg (NEGATIVE); Barbiturate Scree,Urine Neg (NEGATIVE); Benzodiazephine Screen, Urine Pos (NEGATIVE); Cannabinoid Screen, Urine Neg (NEGATIVE); Cocaine Screen, Urine Neg (NEGATIVE); Opiate Scree,Urine Neg (NEGATIVE); Phencyclidine Screen, Urine Neg (NEGATIVE)
--- NOTE | 2024-04-24 14:57 | DVHSR ---
APPROVED REPORT EXAM: LIMITED Two-dimensional and M-mode echocardiogram with Doppler and color Doppler. Blood Pressure: 112/64 mmHg INDICATION ? CHF RISK FACTORS Height: 63, Weight: 265 DIMENSIONS LVDd3.5 (3.8-5.7cm)LA (2D)4.4 (1.9-4.0cm)Aortic Root2.7 (2.0-3.7cm) LVDs2.6 (2.5-4.0cm)LA (MM) (1.9-4.0cm)Aortic Cusp Exc1.4 (1.5-2.0cm) EF (%) 55.0 (55-70%)Rt. Atrium4.1 (1.9-4.0cm)Asc. Aorta cm Mitral Valve MitralMitral Stenosis E/A ratio0.02D MVAcm2 Aortic Valve Aortic ValveAortic Stenosis LVOT Diameter1.9 (1.8-2.4cm)Doppler AVAcm2 Pulmonic Valve V21.19m/s LEFT VENTRICLE The left ventricle is of normal size. Wall thickness is not adequately assessed. The ejection fract ion is likely normal and is estimated at 55%. Endocardial definition is inadequate to assess for wal l motion abnormalities. Diastolic function is not assessed. RIGHT VENTRICLE Not well visualized. ATRIA Not well visualized. MITRAL VALVE Not well visualized. No significant mitral regurgitation. PULMONIC VALVE Not visualized. TRICUSPID VALVE Not well visualized. PA systolic pressure is not adequately estimated. AORTIC VALVE Not well visualized. GREAT VESSELS Not well visualized. PERICARDIAL EFFUSION No significant pericardial effusion. IVC is dilated in size. Other Information Technically limited study due to body habitus and patient on a vent. Conclusion The study is very technically limited. Normal left ventricular size and systolic function. Ejection fraction is estimated at 55%. The right ventricle isn't well visualized. The study is inadequate to assess for valvular function. No pericardial effusion.
--- NOTE | 2024-04-24 15:13 | MEDREC ---
[facility] ASP Intervention Section I [facility] ASP Intervention: Review courses of therapy (PLEASE CONSIDER EMPIRIC TREATMENT FOR SEPSIS OF UNKNOWN SOURCE (CEFEPIME + VANCOMYCIN) OR CAP WITH SEPSIS (CEFETRIAXONE + DOXYCYLINE)) HEATHER ASIF PHARMACIST Apr 24, 2024 15:13
--- NOTE | 2024-04-24 15:16 | DVH ---
BILATERAL LOWER EXTREMITY VENOUS DOPPLER CLINICAL HISTORY: rule out DVT Technique: Duplex Doppler evaluation of the deep venous systems of both lower extremities from the co mmon femoral veins to the popliteal veins including color Doppler and spectral/pulsed waveform analys is was performed. COMPARISON: None FINDINGS: The right and left common femoral, superficial femoral, popliteal, posterior tibial veins and trifurc ations appear patent with normal augmentation, phasicity, compressibility and color-flow. IMPRESSION: 1. There is no sonographic evidence for DVT in the lower extremities. HS:Y
[2024-04-24] MEDS: methylPREDNISolone SOD SUCC 40 MG/ML VL IV ONE (16:34)
[2024-04-24] MEDS: PIPERACILLIN-TAZO 4.5GM 100 ML IV ONE (18:14)
[2024-04-24] MEDS: PIPERACILLIN-TAZOB 3.375GM 100 ML IV SCH (21:38)
[2024-04-24] MEDS: DOCUSATE ORAL LIQUID 100 MG/10 ML UD GT SCH (21:38)
[2024-04-24] MEDS: methylPREDNISolone SOD SUCC 40 MG/ML VL IV SCH (21:38)
[2024-04-24] MEDS: IPRATROPIUM BROM 0.5 MG/2.5ML INH SOL NEB SCH (21:58)
[2024-04-25] VITALS (108 sets, daily range): BP systolic 100–132; BP diastolic 51–74; PULSE 60–93; RESP 13–23; TEMP 98.4–99.1; O2SAT 90–97
[2024-04-25 03:36] LABS: Basophils # (auto) 0 10 ^3/uL (0-0.2); Basophils % (auto) 0.1 % (0.0-2.0); Eosinophils # (auto) 0 10 ^3/uL (0-0.8); Hematocrit 39.4 % (36.0-46.0); Hemoglobin 12.5 g/dL (12.2-16.2); Lymphocytes # (auto) 0.6 10 ^3/uL (0.4-5.4); Lymphocytes % (auto) 4.5 % (10.0-50.0); Mean Corpuscular Hemoglobin 29.2 pg (28.0-32.0); Mean Corpuscular Hgb Conc. 31.8 g/dL (32.0-36.0); Mean Corpuscular Volume 91.7 fL (80.0-100.0); Monocytes # (auto) 0.1 10 ^3/uL (0-1.3); Monocytes % (auto) 0.9 % (0.0-12.0); Neutrophils # (auto) 11.6 10 ^3/uL (1.6-8.6); Neutrophils % (auto) 94.5 % (37.0-80.0); Platelet Count (auto) 210 10^3/uL (140-450); Red Blood Cells 4.29 10^6/uL (4.0-5.20); White Blood Cell 12.3 10^3/uL (4.4-10.8)
[2024-04-25 03:50] LABS: Alanine Aminotransferase 11 U/L (7-40); Albumin 3.9 g/dL (3.2-4.8); Alkaline Phosphatase 76 U/L (46-116); Anion Gap 10 (5-15); Aspartate Aminotransferase 20 U/L (13-40); BUN/Creatinine Ratio 18.3 (10.0-20.0); Blood Urea Nitrogen 17 mg/dL (9-23); Calcium 9.9 mg/dL (8.7-10.4); Carbon Dioxide 29 mmol/L (20-31); Chloride 105 mmol/L (98-107); Sodium 144 mmol/L (136-145)
[2024-04-25 03:51] LABS: Bilirubin, Total 0.3 mg/dL (0.2-1.0); Total Protein 6.8 g/dL (5.7-8.2)
[2024-04-25 04:02] LABS: Glucose 160 mg/dL (74-106); Potassium 3.3 mmol/L (3.5-5.1)
[2024-04-25] MEDS: POTASSIUM CHL 20MEQ/100ML 100 ML IV SCH (05:01)
--- NOTE | 2024-04-25 05:27 | DVH ---
EXAM: XR Chest, 1 View CLINICAL INDICATION: pna TECHNIQUE: Frontal view of the chest. COMPARISON: XY CHEST PORTABLE on DOS: 04/24/24, XY CHEST PORTABLE on DOS: 04/23/24, XY CHEST PORTABLE on DOS: 04/23/24, XY CHEST PORTABLE on DOS: 04/23/24 FINDINGS: LUNGS AND PLEURAL SPACES: Mild CHF. No consolidation. No pneumothorax. HEART: Unremarkable. No cardiomegaly. MEDIASTINUM: Unremarkable. Normal mediastinal contour. BONES/JOINTS: Unremarkable. No acute fracture. TUBES, LINES AND DEVICES: The endotracheal tube (ETT) is in satisfactory position. OTHER FINDINGS: . . IMPRESSION: Mild CHF.
[2024-04-25 07:47] LABS: Base Excess 4.9 mmol/L (-2.0-3.0)
[2024-04-25] MEDS: PANTOPRAZOLE 40 MG/10 ML VIAL INJ IV SCH (09:12)
[2024-04-25] MEDS: FUROSEMIDE 20 MG/2 ML VIAL IV ONE (11:01)
--- NOTE | 2024-04-25 11:27 | DVHPNRES ---
Progress Note Date Seen: Apr 25, 2024 Resident Creating Document: HERMILO MENDEZ RESIDENT Medical Necessity Reason Pt with a Central, PICC or Fol: Yes The following are medically ne: Central Line, Georges Catheter Subjective Review of Systems DEISI MCGILL is a 53-year-old female with a PMH of COPD on home oxygen 3L presented to the ED with the chief complaints of shortness of breath. Patient seen and examined at the bedside. Unable to obtain ROS due to patient's clinical status. Currently sedated, intubated on mechanical ventilation. Continuously monitoring. Changes from previous H/P or p: No Changes Objective vital signs Vital Sign Date Time Temp Pulse Resp B/P (MAP) Pulse Ox O2 Delivery O2 Flow Rate FiO2 04/25/24 09:57 119/59 04/25/24 08:00 40 04/25/24 08:00 22 92 Mechanical Ventilator+ 04/25/24 08:00 87 04/25/24 06:47 99.0 210.2 04/23/24 07:57 10 Total Intake and Output 04/24/24 04/24/24 04/25/24 15:00 23:00 07:00 Intake Total 648.747 ml 482.562 ml 622.30 ml Output Total 650 ml 1550 ml Balance 648.747 ml -167.438 ml -927.70 ml medications Current Medications Medications Dose Ordered Sig/Vidhya Route Start Time Stop Time Status Last Admin Dose Admin Midazolam HCl 50 ml @ 1 mls/hr Q24H IV 04/23/24 11:00 04/25/24 10:44 12 MLS/HR Propofol 100 ml @ 3.483 mls/ hr Q24H IV 04/23/24 12:45 04/25/24 09:57 24.381 MLS/HR Norepinephrine Bitartrate 250 ml @ 3.75 mls/hr Q24H IV 04/23/24 13:30 04/24/24 23:49 11.25 MLS/HR Enoxaparin Sodium 40 mg DAILY SC 04/24/24 10:00 04/25/24 09:12 40 MG Acetaminophen 650 mg Q6HP PRN PO 04/23/24 19:45 Pantoprazole Sodium 40 mg DAILY IV 04/25/24 10:00 04/25/24 09:12 40 MG Fentanyl Citrate 250 ml @ 2.5 mls/hr Q24H IV 04/24/24 10:45 04/24/24 11:00 2.5 MLS/HR Methylprednisolone Sodium Succinate 40 mg BID IV 04/24/24 22:00 04/25/24 09:12 40 MG Enteral Nutritional Formula 1,000 ml 30ML/HR GT 04/24/24 14:45 Docusate Sodium 100 mg BID GT 04/24/24 22:00 04/25/24 09:11 100 MG Piperacillin Sod/ Tazobactam Sod 100 ml @ 25 mls/hr Q8HR IV 04/24/24 22:00 04/25/24 06:00 25 MLS/HR Albuterol 2.5 mg Q4HR NEB 04/24/24 22:00 04/25/24 09:49 2.5 MG Ipratropium [place] 0.5 mg Q4HR NEB 04/24/24 22:00 04/25/24 09:49 0.5 MG Furosemide 20 mg DAILY IV 04/26/24 10:00 Examination Pt is lying on bed General Appearance:Currently sedated, intubated on mechanical ventilation HEENT: Atraumatic, Mucous membranes moist/pink Respiratory: Wheezing, Normal air movement on Mechanical ventilation Cardiovascular: Regular rate, Normal S1, Normal S2 Abdominal: Active bowel sounds, Soft, no distention, no tenderness Extremities: 1 edema in BLE, redness, warmth improved since yesterday Skin: No Significant rash Neuro: pupils are constricted, brisk, sedated Psych/Mental Status: Mental status NL, Mood NL Nurse was there as sharperone during examination laboratory and microbiology Laboratory Tests 04/25/24 03:00 Test 04/25/24 03:00 Range/Units Serum Glucose 160 H 74-106 mg/dL Microbiology Date/Time Source Procedure Growth Status 04/24/24 12:01 Voided Urine Urine Culture - Preliminary Resulted 04/23/24 23:30 Nose MRSA Screen - Final Complete 04/23/24 11:10 Sputum Gram Stain - Final Resulted 04/23/24 11:10 Sputum Respiratory Culture - Preliminary Resulted 04/23/24 08:40 Blood Blood Culture - Preliminary NO GROWTH AFTER 48 HOURS OF INCUBATION. Resulted Labs and/or images reviewed: Labs reviewed by me, Image(s) reviewed by me Problem List/Assessment/Plan Problem List/Assessment/Plan NEUROLOGY # Acute metabolic/toxic encephalopathy CARDIOLOGY # Chronic CHF unspecified type, - Echocardiogram EF is estimated at 55% - BNP WNL # Shock likely sepsis - currently on Versed, Diprivan, fentanyl and Levophed - initiated Zosyn RESPIRATORY # Acute on chronic hypoxic/hypercapnic respiratory failure s/p intubation # COPD exacerbation # ? Septic shock - ICU status - intubated, sedated, on mechanical ventilation - RR 22, VT 500, FiO2 40%, peep 5 - currently on Versed, Diprivan, fentanyl and Levophed - initiated Zosyn - DC IVF - Monitor lab - Patient received 1 dose of methylprednisolone 125 mg - Staretd methylpred 40 mg GI/LIVER # morbid obesity with a BMI 47.1 - nutritional consult /KIDNEY/METABOLIC MSK # cellulitis bilateral lower extremity -on Zosyn # Osteoarthritis # ruled out DVT - ordered venous scan - negative scan [facility] ENDOCRINE # Vit D deficiency - Repleting SKIN # Tobacco abuse disorder # Tobacco dependence LINES Intubation 04/23 Left IJ CVC 04/23 Georges 04/23 DRIPS Levophed Versed Diprivan Fentanyl NUTRITION Jevity 30 mL/hour PUD ppx: Protonix VTE ppx: Lovenox Goals of care discussed with the family for more than 27 minutes: Full code status Critical care time including chart review, discussing with the patient's family excluding procedures: 97 minutes Case discussed with Dr. Vance Plan discussed with: Son My Orders My Orders Orders - HERMILO MENDEZ Procedure Category Date Status Time Echo 2d Mode Cardiac US 04/24/24 Resulted DOP 11:44 Abg W/ Co-Ox RT 04/25/24 Logged 04:00 Chest Xray 1 View XY 04/25/24 Resulted 04:00 Furosemide Injection PHA 04/26/24 In Process (Lasix Injection) 10:00 Lactic Acid W/ Reflex LAB 04/25/24 Logged Order 10:07 Date of Service: Apr 25, 2024 Billing Provider: ANUJ VANCE MD Common Visit Codes: [id number] CARE 30-74 MIN, [id number] CARE-EACH +30MIN HERMILO MENDEZ Apr 25, 2024 11:26 ANUJ VANCE MD Apr 28, 2024 15:34
[2024-04-25 12:18] LABS: Lactic Acid w/Reflex 2.4 mmol/L (0.4-2.0)
[2024-04-25 12:55] LABS: Potassium 3.5 mmol/L (3.5-5.1)
[2024-04-25 13:00] LABS: Magnesium 2.1 mg/dL (1.6-2.6)
[2024-04-25] MEDS: POTASSIUM EFFERVESENT TAB 25 MEQ GT ONE (17:14)
[2024-04-25] MEDS: DOXYCYCLINE 100MG/100ML 100 ML IV SCH (18:40)
[2024-04-26] VITALS (111 sets, daily range): BP systolic 86–128; BP diastolic 42–74; PULSE 55–91; RESP 21–23; TEMP 97.3–99; O2SAT 89–96
[2024-04-26 04:14] LABS: Basophils # (auto) 0 10 ^3/uL (0-0.2); Basophils % (auto) 0.2 % (0.0-2.0); Eosinophils # (auto) 0 10 ^3/uL (0-0.8); Hematocrit 36.3 % (36.0-46.0); Hemoglobin 11.5 g/dL (12.2-16.2); Lymphocytes # (auto) 0.5 10 ^3/uL (0.4-5.4); Lymphocytes % (auto) 3.9 % (10.0-50.0); Mean Corpuscular Hgb Conc. 31.8 g/dL (32.0-36.0); Mean Corpuscular Volume 91.3 fL (80.0-100.0); Monocytes # (auto) 0.3 10 ^3/uL (0-1.3); Monocytes % (auto) 2.5 % (0.0-12.0); Neutrophils # (auto) 12.7 10 ^3/uL (1.6-8.6); Neutrophils % (auto) 93.4 % (37.0-80.0); Platelet Count (auto) 181 10^3/uL (140-450); Red Blood Cells 3.98 10^6/uL (4.0-5.20); Red Cell Distribution Width 15.9 % (11.8-14.3); White Blood Cell 13.6 10^3/uL (4.4-10.8)
[2024-04-26 04:22] LABS: Alanine Aminotransferase 16 U/L (7-40); Alkaline Phosphatase 65 U/L (46-116); Anion Gap 8 (5-15); BUN/Creatinine Ratio 25.5 (10.0-20.0); Calcium 9.1 mg/dL (8.7-10.4); Carbon Dioxide 30 mmol/L (20-31); Chloride 104 mmol/L (98-107); Magnesium 2.1 mg/dL (1.6-2.6); Potassium 3.9 mmol/L (3.5-5.1); Sodium 142 mmol/L (136-145)
[2024-04-26 04:24] LABS: Albumin 3.7 g/dL (3.2-4.8); Aspartate Aminotransferase 25 U/L (13-40); Bilirubin, Total 0.4 mg/dL (0.2-1.0); Total Protein 6.3 g/dL (5.7-8.2)
[2024-04-26 04:26] LABS: Blood Urea Nitrogen 25 mg/dL (9-23); Glucose 136 mg/dL (74-106)
--- NOTE | 2024-04-26 05:31 | DVH ---
EXAM: XR Chest, 1 View CLINICAL INDICATION: pna TECHNIQUE: Frontal view of the chest. COMPARISON: XY CHEST XRAY 1 VIEW on DOS: 04/25/24, XY CHEST PORTABLE on DOS: 04/24/24, XY CHEST MARITZA BLE on DOS: 04/23/24, XY CHEST PORTABLE on DOS: 04/23/24, XY CHEST PORTABLE on DOS: 04/23/24 FINDINGS: LUNGS AND PLEURAL SPACES: Congestive heart failure. Superimposed pneumonia can not be excluded, un changed. No pneumothorax. HEART: Unremarkable. No cardiomegaly. MEDIASTINUM: Unremarkable. Normal mediastinal contour. BONES/JOINTS: Unremarkable. No acute fracture. TUBES, LINES AND DEVICES: Stable tubes and lines. OTHER FINDINGS: . . IMPRESSION: Congestive heart failure. Superimposed pneumonia can not be excluded, unchanged.
[2024-04-26 09:18] LABS: Base Excess 4.6 mmol/L (-2.0-3.0)
[2024-04-26] MEDS ORDERED: FUROSEMIDE 20 MG/2 ML VIAL IV SCH (10:00)
--- NOTE | 2024-04-26 12:46 | DVHPNRES ---
Progress Note Date Seen: Apr 26, 2024 Resident Creating Document: HERMILO MENDEZ RESIDENT Medical Necessity Reason Pt with a Central, PICC or Fol: Yes The following are medically ne: Central Line, Georges Catheter Subjective Review of Systems DEISI MCGILL is a 53-year-old female with a PMH of COPD on home oxygen 3L presented to the ED with the chief complaints of shortness of breath. Patient seen and examined at the bedside. Unable to obtain ROS due to patient's clinical status. Currently sedated, intubated on mechanical ventilation. Continuously monitoring. Changes from previous H/P or p: No Changes Objective vital signs Vital Sign Date Time Temp Pulse Resp B/P (MAP) Pulse Ox O2 Delivery O2 Flow Rate FiO2 04/26/24 12:21 67 22 101/58 (72) 90 45 04/26/24 12:00 Mechanical Ventilator+ 04/26/24 11:15 97.7 207.9 Total Intake and Output 04/25/24 04/25/24 04/26/24 15:00 23:00 07:00 Intake Total 556.298 ml 811.298 ml 623.048 ml Output Total 1250 ml 425 ml Balance 556.298 ml -438.702 ml 198.048 ml medications Current Medications Medications Dose Ordered Sig/Vidhya Route Start Time Stop Time Status Last Admin Dose Admin Midazolam HCl 50 ml @ 1 mls/hr Q24H IV 04/23/24 11:00 04/26/24 07:24 8 MLS/HR Propofol 100 ml @ 3.483 mls/ hr Q24H IV 04/23/24 12:45 04/26/24 10:36 24.381 MLS/HR Norepinephrine Bitartrate 250 ml @ 3.75 mls/hr Q24H IV 04/23/24 13:30 04/24/24 23:49 11.25 MLS/HR Enoxaparin Sodium 40 mg DAILY SC 04/24/24 10:00 04/26/24 08:00 40 MG Acetaminophen 650 mg Q6HP PRN PO 04/23/24 19:45 Pantoprazole Sodium 40 mg DAILY IV 04/25/24 10:00 04/26/24 07:59 40 MG Fentanyl Citrate 250 ml @ 2.5 mls/hr Q24H IV 04/24/24 10:45 04/26/24 03:55 5 MLS/HR Methylprednisolone Sodium Succinate 40 mg BID IV 04/24/24 22:00 04/26/24 07:59 40 MG Enteral Nutritional Formula 1,000 ml 30ML/HR GT 04/24/24 14:45 Docusate Sodium 100 mg BID GT 04/24/24 22:00 04/25/24 21:30 100 MG Piperacillin Sod/ Tazobactam Sod 100 ml @ 25 mls/hr Q8HR IV 04/24/24 22:00 04/26/24 06:00 25 MLS/HR Albuterol 2.5 mg Q4HR NEB 04/24/24 22:00 04/26/24 10:29 2.5 MG Ipratropium [place] 0.5 mg Q4HR NEB 04/24/24 22:00 04/26/24 10:29 0.5 MG Doxycycline Hyclate 100 ml @ 50 mls/hr Q12H IV 04/25/24 17:30 04/26/24 05:30 50 MLS/HR Metoclopramide HCl 5 mg Q8HR IV 04/26/24 14:00 UNV Examination Pt is lying on bed General Appearance:Currently sedated, intubated on mechanical ventilation HEENT: Atraumatic, Mucous membranes moist/pink Respiratory: Wheezing, Normal air movement on Mechanical ventilation Cardiovascular: Regular rate, Normal S1, Normal S2 Abdominal: Active bowel sounds, Soft, no distention, no tenderness Extremities: 1 edema in BLE, redness, warmth improved since yesterday Skin: No Significant rash Neuro: pupils are constricted, brisk, sedated Psych/Mental Status: Mental status NL, Mood NL Nurse was there as peterne during examination laboratory and microbiology Laboratory Tests 04/26/24 03:20 Test 04/26/24 03:20 Range/Units Serum Glucose 136 H 74-106 mg/dL Microbiology Date/Time Source Procedure Growth Status 04/24/24 12:01 Voided Urine Urine Culture - Final Complete 04/23/24 23:30 Nose MRSA Screen - Final Complete 04/23/24 11:10 Sputum Gram Stain - Final Complete 04/23/24 11:10 Sputum Respiratory Culture - Final Complete 04/23/24 08:40 Blood Blood Culture - Preliminary NO GROWTH AFTER 72 HOURS OF INCUBATION. Resulted Labs and/or images reviewed: Labs reviewed by me, Image(s) reviewed by me Problem List/Assessment/Plan Problem List/Assessment/Plan NEUROLOGY # Acute metabolic/toxic encephalopathy likely due to hypercarbia CARDIOLOGY # ? Acute on Chronic diastolic CHF , - Echocardiogram EF is estimated at 55% - BNP WNL # Shock likely sepsis - currently on Versed, Diprivan, fentanyl and Levophed - initiated Zosyn and doxy 04/25 RESPIRATORY # Acute on chronic hypoxic/hypercapnic respiratory failure s/p intubation # COPD exacerbation # ? Septic shock - ICU status - intubated, sedated, on mechanical ventilation - RR 22, VT 500, FiO2 40%, peep 5 - currently on Versed, Diprivan, fentanyl and Levophed - initiated Zosyn and Doxy 04/25 - DC IVF - Monitor lab - Patient received 1 dose of methylprednisolone 125 mg - Staretd methylpred 40 mg GI/LIVER # morbid obesity with a BMI 47.1 - nutritional consult /KIDNEY/METABOLIC MSK # cellulitis bilateral lower extremity -on Zosyn # Osteoarthritis # ruled out DVT - ordered venous scan - negative scan [facility] ENDOCRINE # Vit D deficiency - Repleting SKIN # Tobacco abuse disorder # Tobacco dependence LINES Intubation 04/23 Left IJ CVC 04/23 Georges 04/23 DRIPS Levophed- Off 04/26 Versed Diprivan Fentanyl NUTRITION Jevity 30 mL/hour PUD ppx: Protonix VTE ppx: Lovenox Goals of care discussed with the family for more than 27 minutes: Full code status Critical care time including chart review, discussing with the patient's family excluding procedures: 57 minutes Case discussed with Dr. Solano Plan discussed with: Son My Orders My Orders Orders - HERMILO MENDEZ RESIDENT Procedure Category Date Status Time Chest Xray 1 View XY 04/26/24 Resulted 04:00 Abg W/ Co-Ox RT 04/26/24 Logged 04:00 Doxycycline PHA 04/25/24 In Process 100mg/100ml 17:30 Metoclopramide PHA 04/26/24 Logged Injection (Reglan 14:00 Dietary Evaluation Review Comments: for higher protein content and better controlled serum glucose, recommend Glucerna 40 ml/hr, (58g Pro, 1152 kcal), supplement with amino acid @41 ml/hr, the total nutrient support will be 100g pro, and 1662 kcal providing 81% of pro and 122% energy needs Expected Outcomes/Goals: off went, healing wounds and gradual wt loss. Date of Service: Apr 26, 2024 Billing Provider: WANDA SOLANO MD Common Visit Codes: [id number] CARE 30-74 MIN HERMILO MENDEZ RESIDENT Apr 26, 2024 12:46 WANDA SOLANO MD Apr 29, 2024 09:06
[2024-04-26] MEDS: METOCLOPRAMIDE HCL 5MG/ml INJ 2ml VIAL IV SCH (15:15)
[2024-04-26] MEDS: FUROSEMIDE 20 MG/2 ML VIAL IV ONE (17:23)
[2024-04-27] VITALS (113 sets, daily range): BP systolic 91–123; BP diastolic 41–66; PULSE 54–81; RESP 20–27; TEMP 97.7–99.1; O2SAT 89–96
[2024-04-27 04:06] LABS: Basophils # (auto) 0 10 ^3/uL (0-0.2); Basophils % (auto) 0.2 % (0.0-2.0); Eosinophils # (auto) 0 10 ^3/uL (0-0.8); Hematocrit 35.1 % (36.0-46.0); Hemoglobin 11.7 g/dL (12.2-16.2); Lymphocytes # (auto) 0.6 10 ^3/uL (0.4-5.4); Lymphocytes % (auto) 5.4 % (10.0-50.0); Mean Corpuscular Hemoglobin 30.2 pg (28.0-32.0); Mean Corpuscular Hgb Conc. 33.3 g/dL (32.0-36.0); Mean Corpuscular Volume 90.8 fL (80.0-100.0); Monocytes # (auto) 0.3 10 ^3/uL (0-1.3); Monocytes % (auto) 2.8 % (0.0-12.0); Neutrophils # (auto) 9.5 10 ^3/uL (1.6-8.6); Neutrophils % (auto) 91.6 % (37.0-80.0); Nucleated Red Blood Cells % 0.1 %; Platelet Count (auto) 170 10^3/uL (140-450); Red Blood Cells 3.86 10^6/uL (4.0-5.20); Red Cell Distribution Width 15.8 % (11.8-14.3); White Blood Cell 10.4 10^3/uL (4.4-10.8)
[2024-04-27 04:24] LABS: Alanine Aminotransferase 39 U/L (7-40); Albumin 3.7 g/dL (3.2-4.8); Alkaline Phosphatase 62 U/L (46-116); Anion Gap 9 (5-15); BUN/Creatinine Ratio 30.9 (10.0-20.0); Calcium 9.4 mg/dL (8.7-10.4); Carbon Dioxide 28 mmol/L (20-31); Chloride 105 mmol/L (98-107); Magnesium 2.1 mg/dL (1.6-2.6); Potassium 3.8 mmol/L (3.5-5.1); Sodium 142 mmol/L (136-145)
[2024-04-27 04:25] LABS: Aspartate Aminotransferase 53 U/L (13-40); Bilirubin, Total 0.4 mg/dL (0.2-1.0); Blood Urea Nitrogen 30 mg/dL (9-23); Glucose 134 mg/dL (74-106); Total Protein 6.3 g/dL (5.7-8.2)
--- NOTE | 2024-04-27 06:11 | DVH ---
CHEST RADIOGRAPH Indication: pna Technique: Single frontal view of the chest was obtained COMPARISON: XY CHEST XRAY 1 VIEW on DOS: 04/26/24, XY CHEST XRAY 1 VIEW on DOS: 04/25/24, XY CHEST PORT ABLE on DOS: 04/24/24, XY CHEST PORTABLE on DOS: 04/23/24, XY CHEST PORTABLE on DOS: 04/23/24 FINDINGS: Lines and Tubes: Endotracheal tube and left central venous catheter in satisfactory position. Enteric catheter in satisfactory position. Lungs: Multifocal airspace disease. Pleura: No effusion. No pneumothorax. Cardiomediastinal contours: Cardiomegaly Bones: Unremarkable IMPRESSION: Lines and tubes in satisfactory position. No significant interval change.
--- NOTE | 2024-04-27 11:28 | DVHPN2 ---
Subjective 04/27-patient was stated, on COPD treatment. On exam still wheezing. Possible pneumonia getting antibiotics. On exam morbidly obese, still having faint expiratory wheezes. Volume status appears euvolemic, no pedal edema, no pulmonary rales. For history, patient was gets very aggressive agitated put unclear if this is a baseline or acute mental status change. We will try awakening trial/sedation vacation today. No plans for extubation today. Still wheezing. Patient was accompanied used to feel sedation vacation awakening trials, might need psychotics for behavioral control. Reviewed: H&P Changes from previous H/P or p: No Changes General: Per HPI Objective Vitals Vital Signs Date Time Temp Pulse Resp B/P (MAP) Pulse Ox O2 Delivery O2 Flow Rate FiO2 04/27/24 11:12 59 22 111/55 (73) 91 45 04/27/24 09:15 98.6 209.5 04/27/24 07:30 Mechanical Ventilator+ Intake/Output Intake and Output 04/27/24 07:00 Intake Total 1403.413 ml Output Total 2000 ml Balance -596.587 ml Intake Oral 100 ml IV Total 1167.413 ml Tube Feeding 136 ml Output Urine Total 2000 ml Exam On exam morbidly obese, still having faint expiratory wheezes. Volume status appears euvolemic, no pedal edema, no pulmonary rales. Medications Current Medications Medications Dose Ordered Sig/Vidhya Route Start Time Stop Time Status Last Admin Dose Admin Midazolam HCl 50 ml @ 1 mls/hr Q24H IV 04/23/24 11:00 04/27/24 02:50 5 MLS/HR Propofol 100 ml @ 3.483 mls/ hr Q24H IV 04/23/24 12:45 04/27/24 07:43 13.932 MLS/HR Norepinephrine Bitartrate 250 ml @ 3.75 mls/hr Q24H IV 04/23/24 13:30 04/27/24 07:49 3.75 MLS/HR Enoxaparin Sodium 40 mg DAILY SC 04/24/24 10:00 04/27/24 10:26 40 MG Acetaminophen 650 mg Q6HP PRN PO 04/23/24 19:45 Pantoprazole Sodium 40 mg DAILY IV 04/25/24 10:00 04/27/24 10:25 40 MG Fentanyl Citrate 250 ml @ 2.5 mls/hr Q24H IV 04/24/24 10:45 04/26/24 03:55 5 MLS/HR Methylprednisolone Sodium Succinate 40 mg BID IV 04/24/24 22:00 04/27/24 10:25 40 MG Enteral Nutritional Formula 1,000 ml 30ML/HR GT 04/24/24 14:45 Docusate Sodium 100 mg BID GT 04/24/24 22:00 04/27/24 10:25 100 MG Piperacillin Sod/ Tazobactam Sod 100 ml @ 25 mls/hr Q8HR IV 04/24/24 22:00 04/27/24 05:42 25 MLS/HR Albuterol 2.5 mg Q4HR NEB 04/24/24 22:00 04/27/24 11:12 2.5 MG Ipratropium [place] 0.5 mg Q4HR NEB 04/24/24 22:00 04/27/24 11:12 0.5 MG Doxycycline Hyclate 100 ml @ 50 mls/hr Q12H IV 04/25/24 17:30 04/27/24 05:11 50 MLS/HR Metoclopramide HCl 5 mg Q8HPRN PRN IV 04/26/24 15:45 Laboratory Results Laboratory Tests 04/27/24 03:23 Chemistry Test 04/27/24 03:23 Albumin 3.7 g/dL (3.2-4.8) Calcium Level 9.4 mg/dL (8.7-10.4) Magnesium Level 2.1 mg/dL (1.6-2.6) Total Protein 6.3 g/dL (5.7-8.2) LFT Test 04/27/24 03:23 Alanine Aminotransferase (ALT) 39 U/L (7-40) Alkaline Phosphatase 62 U/L (46-116) Aspartate Amino Transferase (AST) 53 U/L (13-40) H Total Bilirubin 0.4 mg/dL (0.2-1.0) Urinalysis Test 04/23/24 11:13 Urine Color Colorless (Yellow) Urine Clarity Clear (Clear) Urine pH 6.0 (5.0-9.0) Urine Specific [place] 1.007 (1.001-1.035) Urine Protein Negative (Negative) Urine Ketones Negative (Negative) Urine Blood Negative /uL (Negative) Urine Nitrite Negative (Negative) Urine Bilirubin Negative (Negative) Urine Urobilinogen Normal mg/dL (Negative) Urine Leukocyte Esterase Negative /uL (Negative) Urine RBC 1 /hpf (0 - 4) Urine Microscopic WBC 2 /HPF (0-5) Urine Squamous Epithelial Cells None seen /hpf (<5) Urine Bacteria None seen /hpf (None Seen) Urine Glucose Normal mg/dL (Normal) Microbiology Microbiology Date/Time Source Procedure Growth Status 04/24/24 12:01 Voided Urine Urine Culture - Final Complete 04/23/24 23:30 Nose MRSA Screen - Final Complete 04/23/24 11:10 Sputum Gram Stain - Final Complete 04/23/24 11:10 Sputum Respiratory Culture - Final Complete 04/23/24 08:40 Blood Blood Culture - Preliminary NO GROWTH AFTER 72 HOURS OF INCUBATION. Resulted Labs and/or images reviewed: Labs reviewed by me, Image(s) reviewed by me Assessment/Plan Assessment/Plan 04/27-patient was stated, on COPD treatment. On exam still wheezing. Possible pneumonia getting antibiotics. On exam morbidly obese, still having faint expiratory wheezes. Volume status appears euvolemic, no pedal edema, no pulmonary rales. For history, patient was gets very aggressive agitated put unclear if this is a baseline or acute mental status change. We will try awakening trial/sedation vacation today. No plans for extubation today. Still wheezing. Patient was accompanied used to feel sedation vacation awakening trials, might need psychotics for behavioral control. NEUROLOGY # Acute metabolic/toxic encephalopathy likely due to hypercarbia CARDIOLOGY # ? Acute on Chronic diastolic CHF , - Echocardiogram EF is estimated at 55% - BNP WNL # Shock likely sepsis - currently on Versed, Diprivan, fentanyl and Levophed - initiated Zosyn and doxy 04/25 RESPIRATORY # Acute on chronic hypoxic/hypercapnic respiratory failure s/p intubation # COPD exacerbation # ? Septic shock - ICU status - intubated, sedated, on mechanical ventilation - RR 22, VT 500, FiO2 40%, peep 5 - currently on Versed, Diprivan, fentanyl and Levophed - initiated Zosyn and Doxy 04/25 - DC IVF - Monitor lab - Patient received 1 dose of methylprednisolone 125 mg - Staretd methylpred 40 mg GI/LIVER # morbid obesity with a BMI 47.1 - nutritional consult /KIDNEY/METABOLIC MSK # cellulitis bilateral lower extremity -on Zosyn/doxycycline # Osteoarthritis # ruled out DVT - ordered venous scan- negative scan [facility]-ON[facility] ENDOCRINE # Vit D deficiency - Repleting SKIN # Tobacco abuse disorder # Tobacco dependence LINES Intubation 04/23 Left IJ CVC 04/23 Georges 04/23 DRIPS Levophed- still on Versed Diprivan Fentanyl NUTRITION Jevity 30 mL/hour PUD ppx: Protonix VTE ppx: Lovenox Goals of care discussed with the family for more than 27 minutes: Full code status Critical care time including chart review, discussing with the patient's family excluding procedures: 57 minutes Plan discussed with: Other Date of Service: Apr 27, 2024 Billing Provider: CHRISTI GA MD Common Visit Codes: [id number] CARE-EACH +30MIN CHRISTI GA MD Apr 27, 2024 11:28
[2024-04-27] MEDS: BUDESONIDE (INHALATION) 0.5 MG/2 ML NEB NEB SCH (22:04)
--- NOTE | 2024-04-27 23:33 | DVHINCON2 ---
Date of service: Apr 27, 2024 Referring Physician Marv Arevalo MD Reason for Consultation Acute hypoxic respiratory failure requiring mechanical ventilator. History of Present Illness 53-year-old woman with past medical history of COPD who presented to ED on 04/23/24 for evaluation of shortness for breath. Patient c/o worsening shortness for breath ongoing for one day. Patient was using her nebulizer and inhaler at home without relief of the symptoms. Patient was saturating in the 70s on arrival. She was placed on BiPAP initially and became progressively more confused, taking off her mask.. She was emergently intubated for airway protection. Patient was admitted for further care and pulmonary consultation is requested for evaluation and management of acute hypoxic respiratory failure requiring mechanical ventilator. Review of Systems: 14-point review of systems negative unless otherwise noted above. Past Medical History: COPD Past Surgical History: Unknown Medications: Reviewed. Allergies: Azithromycin Family History: No family history of premature CAD. No family history of lung disorders. Social History: Nonsmoker. No alcohol or illicit drug use. Allergies: Coded Allergies: Azithromycin (Verified Allergy, Unknown, 04/23/24) Current Medications Current Medications Medications (Trade) Dose Ordered Sig/Vidhya Route PRN Reason Start Time Stop Time Status Last Admin Budesonide (Pulmicort) 0.5 mg Q12HR NEB 04/27/24 22:00 04/27/24 22:04 Dexmedetomidine HCl 400 mcg/ Dextrose 100 ml @ 6.185 mls/ hr [id number] IV 04/27/24 21:15 Vital Signs Vital Signs Date Time Temp Pulse Resp B/P (MAP) Pulse Ox O2 Delivery O2 Flow Rate FiO2 04/27/24 22:38 98.2 69 22 101/49 (66) 95 208.8 04/27/24 22:04 45 04/27/24 22:00 Mechanical Ventilator+ Physical Exam Gen.: Patient lying in bed in medical ICU. Sedated, intubated on mechanical ventilator. Head: Normocephalic, atraumatic. Eyes: PERRLA. Ears: Normal external anatomy. Throat: Endotracheal tube and orogastric tube in place. Neck: Supple, trachea midline. Chest: Transmitted breath sounds bilaterally. Decreased air entry bilaterally. No wheezing. Bibasilar crackles. Cardiovascular: Positive S1, positive S2. Regular rate and rhythm. Abdomen: Positive bowel sounds in all 4 quadrants. Soft, nontender, nondistended. : Georges in place. Normal external genitalia. Rectal: Deferred. Skin: Warm, dry. Intact. Extremities: 2+ radial pulses bilaterally. No lower extremity edema. Neuro: Sedated. Labs/Diagnostic Data Labs Test 04/27/24 08:50 04/27/24 03:23 04/26/24 09:04 04/24/24 13:00 Range/Units Lactic Acid Level 1.2 0.4-2.0 mmol/L White Blood Count 10.4 4.4-10.8 10^3/uL Red Blood Count 3.86 L 4.0-5.20 10^6/uL Hemoglobin 11.7 L 12.2-16.2 g/dL Hematocrit 35.1 L 36.0-46.0 % Mean Corpuscular Volume 90.8 80.0-100.0 fL Mean Corpuscular Hemoglobin 30.2 28.0-32.0 pg Mean Corpuscular Hemoglobin Concent 33.3 32.0-36.0 g/dL Red Cell Distribution Width 15.8 H 11.8-14.3 % Platelet Count 170 140-450 10^3/uL Mean Platelet Volume 9.7 6.9-10.8 fL Neutrophils (%) (Auto) 91.6 H 37.0-80.0 % Lymphocytes (%) (Auto) 5.4 L 10.0-50.0 % Monocytes (%) (Auto) 2.8 0.0-12.0 % Eosinophils (%) (Auto) 0.0 0.0-7.0 % Basophils (%) (Auto) 0.2 0.0-2.0 % Neutrophils # (Auto) 9.5 H 1.6-8.6 10 ^3/uL Lymphocytes # (Auto) 0.6 0.4-5.4 10 ^3/uL Monocytes # (Auto) 0.3 0-1.3 10 ^3/uL Eosinophils # (Auto) 0 0-0.8 10 ^3/uL Basophils # (Auto) 0 0-0.2 10 ^3/uL Nucleated Red Blood Cells 0.1 % Sodium Level 142 136-145 mmol/L Potassium Level 3.8 3.5-5.1 mmol/L Chloride Level 105 98-107 mmol/L Carbon Dioxide Level 28 20-31 mmol/L Anion Gap 9 5-15 Blood Urea Nitrogen 30 H 9-23 mg/dL Creatinine 0.97 0.550-1.02 mg/dL Glomerular Filtration Rate Calc 69 >90 mL/min BUN/Creatinine Ratio 30.9 H 10.0-20.0 Serum Glucose 134 H 74-106 mg/dL Calcium Level 9.4 8.7-10.4 mg/dL Magnesium Level 2.1 1.6-2.6 mg/dL Total Bilirubin 0.4 0.2-1.0 mg/dL Aspartate Amino Transferase (AST) 53 H 13-40 U/L Alanine Aminotransferase (ALT) 39 7-40 U/L Alkaline Phosphatase 62 46-116 U/L Total Protein 6.3 5.7-8.2 g/dL Albumin 3.7 3.2-4.8 g/dL Blood Gas Specimen Type Arterial Blood Gas Sample Site Right radial Blood Gas Patient Temperature 37.0 Arterial Blood Date Drawn [id number] Arterial Blood pH 7.467 H 7.350-7.450 Arterial Blood Partial Pressure CO2 40.5 32.0-45.0 mmHg Arterial Blood Partial Pressure O2 57.3 L 83.0-108.0 mmHg Arterial Blood HCO3 28.6 H 21.0-28.0 mmol/L Arterial Blood Oxygen Saturation 89.2 L 94.0-98.0 % Arterial Blood Base Excess 4.6 H -2.0-3.0 mmol/L Arterial Blood Oxyhemoglobin 88.8 L 94.0-98.0 % Arterial Blood Carboxyhemoglobin 0.3 L 0.5-1.5 % Arterial Blood Methemoglobin 0.1 0.0-1.5 % Song Test Modified Blood Gas Total Hemoglobin 12.30 12.0-16.0 g/dL Blood Gas Set Respiration Rate 22.0 Blood Gas Modality Vent - ac FiO2 % 40.0 Blood Gas Tidal Volume 500.0 Blood Gas PEEP or CPAP 5.0 Thyroid Stimulating Hormone (TSH) 3.87 0.55-4.78 uIU/mL Test 04/24/24 12:01 04/24/24 11:38 04/24/24 11:34 04/23/24 12:23 Range/Units Urine Opiates Screen Neg NEGATIVE Urine Fentanyl Screen Neg NEGATIVE Urine Barbiturates Screen Neg NEGATIVE Urine Phencyclidine Screen Neg NEGATIVE Urine Amphetamines Screen Neg NEGATIVE Urine Benzodiazepines Screen Pos NEGATIVE Urine Cocaine Screen Neg NEGATIVE Urine Cannabinoids Screen Neg NEGATIVE Prothrombin Time 10.7 9.3-11.8 sec Prothrombin Time INR 1.01 0.9-1.15 Activated Partial Thromboplast Time 24.5 24.5-34.5 SEC D-Dimer, Quantitative 2.84 H 0.0-0.49 mg/L FEU Hemoglobin A1c 5.4 <5.7 % A1C B-Type Natriuretic Peptide 25.70 0-100 pg/mL Vitamin B12 Level 319 211-911 pg/mL Vitamin D 25-Hydroxy 14.2 L 30.0-100 ng/mL Blood Gas Critical Value Read Back Yes Blood Gas Notified Whom Md gil worthington Blood Gas Notified Time [id number] Blood Gas Notified By [employer] Operator juarez Cortés 04/23/24 11:13 04/23/24 10:43 04/23/24 08:25 04/23/24 07:37 Range/Units Urine Color Colorless Yellow Urine Clarity Clear Clear Urine pH 6.0 5.0-9.0 Urine Specific [place] 1.007 1.001-1.035 Urine Protein Negative Negative Urine Ketones Negative Negative Urine Blood Negative Negative /uL Urine Nitrite Negative Negative Urine Bilirubin Negative Negative Urine Urobilinogen Normal Negative mg/dL Urine Leukocyte Esterase Negative Negative /uL Urine RBC 1 0 - 4 /hpf Urine Microscopic WBC 2 0-5 /HPF Urine Squamous Epithelial Cells None seen <5 /hpf Urine Bacteria None seen None Seen /hpf Urine Glucose Normal Normal mg/dL Blood Gas Pressure Support 8 Blood Gas EPAP 7 Blood Gas IPAP 15 Troponin I High Sensitivity 4 </=34 ng/L Influenza Type A Antigen Negative Negative Influenza Type B Antigen Negative Negative SARS-CoV-2 Antigen (Rapid) Negative NEGATIVE Microbiology Date/Time Source Procedure Growth Status 04/24/24 12:01 Voided Urine Urine Culture - Final Complete 04/23/24 23:30 Nose MRSA Screen - Final Complete 04/23/24 11:10 Sputum Gram Stain - Final Complete 04/23/24 11:10 Sputum Respiratory Culture - Final Complete 04/23/24 08:40 Blood Blood Culture - Preliminary NO GROWTH AFTER 72 HOURS OF INCUBATION. Resulted Assessment Impression: Acute hypoxic/hypercapnic respiratory failure On mechanical ventilator COPD exacerbation Morbid obesity Plan: s/p intubation on mechanical ventilator. CXR image and report reviewed. Devices in place. Multifocal airspace disease. No pneumothorax. No pleural effusion. On AC mode; RR 22, VT 500, PEEP 5, FiO2 of 45% Titrate FIO2 to keep O2 saturation above 90%. VAP bundle. Daily ABG and CXR while intubated Sedate for ventilator synchrony - On Versed, Propofol Precedex OK for agitation if necessary Continue bronchodilators/Pulmicort. Continue steroids Continue antibiotics. On pressors for hemodynamic support Levophed 1 mcg/min Titrate to keep mean arterial pressure greater than 65 mmHg. Monitor renal function Monitor electrolytes. Supplement as necessary. Monitor ins and outs. Maintain euvolemia. Taper sedation as tolerated CPAP in AM with PS 8, PEEP 5. GI prophylaxis. DVT prophylaxis. Prognosis: Poor given patient's multiple co-morbidities. Condition: Critical Rest of plan per hospitalist and other consultants. A total of 35 minutes of critical care time was spent reviewing the patient record, examining the patient, making a diagnostic and therapeutic plan, discussing this plan with the medical personnel, following up on diagnostic studies and following the patient for clinical stability excluding any and all procedures. At least 50% of this time was spent in direct, [id number] contact. Thank you Dr. Arevalo, for allowing me to participate in this patient's care. Further recommendations will depend on the patient's clinical course. Please do not hesitate to contact me if you have any questions or concerns. This medical document was created using an electronic medical record system with [employer] dictation system. Although these documentations are being carefully reviewed, there may still be some phonetic and typographical changes. The errors are purely typographical, due to imperfection on the software program, and do not reflect any compromise in the patient's medical care. Plan discussed with: Other (ROXANNA Torres/MD Arevalo) ROSENDO TARANGO MD Apr 27, 2024 23:33
[2024-04-28] VITALS (117 sets, daily range): BP systolic 92–139; BP diastolic 46–83; PULSE 53–87; RESP 11–24; TEMP 97.7–98.8; O2SAT 91–99
[2024-04-28 03:42] LABS: Hematocrit 36.2 % (36.0-46.0); Hemoglobin 11.9 g/dL (12.2-16.2); Mean Corpuscular Hemoglobin 30.3 pg (28.0-32.0); Mean Corpuscular Hgb Conc. 32.9 g/dL (32.0-36.0); Mean Corpuscular Volume 91.9 fL (80.0-100.0); Platelet Count (auto) 180 10^3/uL (140-450); Red Blood Cells 3.94 10^6/uL (4.0-5.20); White Blood Cell 9.1 10^3/uL (4.4-10.8)
[2024-04-28 04:04] LABS: Albumin 3.6 g/dL (3.2-4.8); Alkaline Phosphatase 61 U/L (46-116); Anion Gap 8 (5-15); BUN/Creatinine Ratio 36.9 (10.0-20.0); Calcium 9.6 mg/dL (8.7-10.4); Carbon Dioxide 28 mmol/L (20-31); Chloride 106 mmol/L (98-107); Potassium 4.3 mmol/L (3.5-5.1); Sodium 142 mmol/L (136-145)
[2024-04-28 04:05] LABS: Bilirubin, Total 0.4 mg/dL (0.2-1.0); Total Protein 6.4 g/dL (5.7-8.2)
[2024-04-28 04:18] LABS: Alanine Aminotransferase 62 U/L (7-40); Aspartate Aminotransferase 72 U/L (13-40); Blood Urea Nitrogen 31 mg/dL (9-23); Glucose 130 mg/dL (74-106)
[2024-04-28 04:36] LABS: Basophils % (manual) 0 (0.0-2.0); Blast Cells 0; Eosinophils % (manual) 0 (0-7); Metamyelocytes % 0; Myelocytes % 0; Promyelocytes % 0; Reactive Lymphocytes 0
[2024-04-28 05:27] LABS: Anisocytosis Slight; Band Neutrophils % (manual) 6; Lymphocytes % (manual) 6 (10.0-50.0); Monocytes % (manual) 2 (0-12); Platelet Estimate Adequate
[2024-04-28 06:04] LABS: Base Excess -0.3 mmol/L (-2.0-3.0)
--- NOTE | 2024-04-28 06:36 | DVH ---
EXAM: XY CHEST PORTABLE HISTORY: Respiratory failure COMPARISON: XY CHEST XRAY 1 VIEW on DOS: 04/27/24, XY CHEST XRAY 1 VIEW on DOS: 04/26/24, XY CHEST XRAY 1 VIEW on DOS: 04/25/24, XY CHEST PORTABLE on DOS: 04/24/24, XY CHEST PORTABLE on DOS: 04/23/24 TECHNIQUE: Portable AP view of the chest was performed. FINDINGS: Endotracheal tube is re-identified with its tip 3.5 cm above the jazmyne. OG tube and left IJ central line are re-identified. There is stable to improved right basilar infiltrate. Cardiomegaly and cent ral pulmonary vascular congestion are stable. No pneumothorax. IMPRESSION: 1. Mechanical ventilation with tubes and lines as above. 2. Stable to slightly improved right basilar infiltrate. 3. Cardiomegaly and central pulmonary vascular congestion, stable.
[2024-04-28] MEDS: PIPERACILLIN-TAZOB 3.375GM 100 ML IV SCH (08:01)
--- NOTE | 2024-04-28 11:06 | DVHPN2 ---
Subjective update 04/28 04/27-patient was stated, on COPD treatment. On exam still wheezing. Possible pneumonia getting antibiotics. On exam morbidly obese, still having faint expiratory wheezes. Volume status appears euvolemic, no pedal edema, no pulmonary rales. For history, patient was gets very aggressive agitated put unclear if this is a baseline or acute mental status change. We will try awakening trial/sedation vacation today. No plans for extubation today. Still wheezing. Patient was accompanied used to feel sedation vacation awakening trials, might need psychotics for behavioral control. 04/28 - did somewhat well yest 04/27 with SAT but failed after due to agitation. will try again today. cont nebs, steroids, abx. Reviewed: H&P Changes from previous H/P or p: No Changes General: Per HPI Objective Vitals Vital Signs Date Time Temp Pulse Resp B/P (MAP) Pulse Ox O2 Delivery O2 Flow Rate FiO2 04/28/24 10:24 98.1 64 21 120/61 (80) 93 208.6 04/28/24 10:00 Mechanical Ventilator+ 45 45 Intake/Output Intake and Output 04/28/24 07:00 Intake Total 1618.965 ml Output Total 1250 ml Balance 368.965 ml Intake Oral 100 ml IV Total 1298.965 ml Tube Feeding 220 ml Output Urine Total 1250 ml Exam On exam morbidly obese, still having faint expiratory wheezes. Volume status appears euvolemic, no pedal edema, no pulmonary rales. Medications Current Medications Medications Dose Ordered Sig/Vidhya Route Start Time Stop Time Status Last Admin Dose Admin Midazolam HCl 50 ml @ 1 mls/hr Q24H IV 04/23/24 11:00 04/28/24 05:46 6 MLS/HR Propofol 100 ml @ 3.483 mls/ hr Q24H IV 04/23/24 12:45 04/28/24 08:01 17.415 MLS/HR Norepinephrine Bitartrate 250 ml @ 3.75 mls/hr Q24H IV 04/23/24 13:30 04/27/24 07:49 3.75 MLS/HR Enoxaparin Sodium 40 mg DAILY SC 04/24/24 10:00 04/28/24 09:40 40 MG Acetaminophen 650 mg Q6HP PRN PO 04/23/24 19:45 Pantoprazole Sodium 40 mg DAILY IV 04/25/24 10:00 04/28/24 09:40 40 MG Fentanyl Citrate 250 ml @ 2.5 mls/hr Q24H IV 04/24/24 10:45 04/28/24 02:10 5 MLS/HR Methylprednisolone Sodium Succinate 40 mg BID IV 04/24/24 22:00 04/28/24 09:39 40 MG Enteral Nutritional Formula 1,000 ml 30ML/HR GT 04/24/24 14:45 Docusate Sodium 100 mg BID GT 04/24/24 22:00 04/28/24 09:39 100 MG Albuterol 2.5 mg Q4HR NEB 04/24/24 22:00 04/28/24 09:22 2.5 MG Ipratropium [place] 0.5 mg Q4HR NEB 04/24/24 22:00 04/28/24 09:22 0.5 MG Doxycycline Hyclate 100 ml @ 50 mls/hr Q12H IV 04/25/24 17:30 04/28/24 05:49 50 MLS/HR Metoclopramide HCl 5 mg Q8HPRN PRN IV 04/26/24 15:45 Budesonide 0.5 mg Q12HR NEB 04/27/24 22:00 04/28/24 05:42 0.5 MG Dexmedetomidine HCl 400 mcg/ Dextrose 100 ml @ 6.185 mls/ hr [id number] IV 04/27/24 21:15 04/28/24 09:52 6.185 MLS/HR Piperacillin Sod/ Tazobactam Sod 100 ml @ 25 mls/hr Q8H IV 04/28/24 08:00 04/28/24 08:01 25 MLS/HR Laboratory Results Laboratory Tests 04/28/24 03:09 Chemistry Test 04/28/24 03:09 Albumin 3.6 g/dL (3.2-4.8) Calcium Level 9.6 mg/dL (8.7-10.4) Total Protein 6.4 g/dL (5.7-8.2) LFT Test 04/28/24 03:09 Alanine Aminotransferase (ALT) 62 U/L (7-40) H Alkaline Phosphatase 61 U/L (46-116) Aspartate Amino Transferase (AST) 72 U/L (13-40) H Total Bilirubin 0.4 mg/dL (0.2-1.0) Urinalysis Test 04/23/24 11:13 Urine Color Colorless (Yellow) Urine Clarity Clear (Clear) Urine pH 6.0 (5.0-9.0) Urine Specific [place] 1.007 (1.001-1.035) Urine Protein Negative (Negative) Urine Ketones Negative (Negative) Urine Blood Negative /uL (Negative) Urine Nitrite Negative (Negative) Urine Bilirubin Negative (Negative) Urine Urobilinogen Normal mg/dL (Negative) Urine Leukocyte Esterase Negative /uL (Negative) Urine RBC 1 /hpf (0 - 4) Urine Microscopic WBC 2 /HPF (0-5) Urine Squamous Epithelial Cells None seen /hpf (<5) Urine Bacteria None seen /hpf (None Seen) Urine Glucose Normal mg/dL (Normal) Blood Gas Results Test 04/28/24 06:00 Arterial Blood pH 7.384 (7.350-7.450) FiO2 % 45.0 Microbiology Microbiology Date/Time Source Procedure Growth Status 04/24/24 12:01 Voided Urine Urine Culture - Final Complete 04/23/24 23:30 Nose MRSA Screen - Final Complete 04/23/24 11:10 Sputum Gram Stain - Final Complete 04/23/24 11:10 Sputum Respiratory Culture - Final Complete 04/23/24 08:40 Blood Blood Culture - Final NO GROWTH AFTER 5 DAYS OF INCUBATION. Complete Labs and/or images reviewed: Labs reviewed by me, Image(s) reviewed by me Assessment/Plan Assessment/Plan 04/28 - did somewhat well yest 04/27 with SAT but failed after due to agitation. will try again today. cont nebs, steroids, abx. NEUROLOGY # Acute metabolic/toxic encephalopathy likely due to hypercarbia CARDIOLOGY # ? Acute on Chronic diastolic CHF , - Echocardiogram EF is estimated at 55% - BNP WNL # Shock likely sepsis - currently on Versed, Diprivan, fentanyl and Levophed - initiated Zosyn and doxy 04/25 RESPIRATORY # Acute on chronic hypoxic/hypercapnic respiratory failure s/p intubation # COPD exacerbation # ? Septic shock - ICU status - intubated, sedated, on mechanical ventilation - RR 22, VT 500, FiO2 40%, peep 5 - currently on Versed, Diprivan, fentanyl and Levophed - initiated Zosyn and Doxy 04/25 - DC IVF - Monitor lab - Patient received 1 dose of methylprednisolone 125 mg - Staretd methylpred 40 mg GI/LIVER # morbid obesity with a BMI 47.1 - nutritional consult /KIDNEY/METABOLIC MSK # cellulitis bilateral lower extremity -on Zosyn/doxycycline # Osteoarthritis # ruled out DVT - ordered venous scan- negative scan [facility]-ON[facility] ENDOCRINE # Vit D deficiency - Repleting SKIN # Tobacco abuse disorder # Tobacco dependence LINES Intubation 04/23 Left IJ CVC 04/23 Georges 04/23 DRIPS Levophed- still on Versed Diprivan Fentanyl NUTRITION Jevity 30 mL/hour PUD ppx: Protonix VTE ppx: Lovenox Goals of care discussed with the family for more than 27 minutes: Full code status Critical care time including chart review, discussing with the patient's family excluding procedures: 57 minutes Plan discussed with: Other My Orders Orders - CHRISTI GA MD Procedure Category Date Status Time Chest Portable XY 04/27/24 Transmitted 16:56 Abg W/ Co-Ox RT 04/28/24 Logged 04:00 Chest Portable XY 04/28/24 Resulted 04:00 Date of Service: Apr 28, 2024 Billing Provider: CHRISTI GA MD Common Visit Codes: [id number] CARE-EACH +30MIN CHRISTI GA MD Apr 28, 2024 11:06
[2024-04-28] MEDS: Jevity 1.2 Cal/Fiber 1 Liter GT SCH (17:07)
--- NOTE | 2024-04-28 21:22 | DVHPN2 ---
Progress Note - Dictate Date Seen: Apr 28, 2024 Medical Necessity Reason Pt with a Central, PICC or Fol: Yes The following are medically ne: Central Line, Corcoran Catheter Reason for corcoran catheter: Strict I&O Subjective Patient seen and examined at bedside. Sedated, intubated on mechanical ventilator. Overnight events reviewed. vital signs Vital Sign Date Time Temp Pulse Resp B/P (MAP) Pulse Ox O2 Delivery O2 Flow Rate FiO2 04/28/24 20:00 65 04/28/24 19:39 22 104/48 (66) 92 50 04/28/24 19:09 98.1 208.6 04/28/24 18:00 Mechanical Ventilator+ Total Intake and Output 04/27/24 04/27/24 04/28/24 14:59 22:59 06:59 Intake Total 457.672 ml 556.740 ml 497.320 ml Output Total 525 ml 725 ml Balance 457.672 ml 31.740 ml -227.680 ml medications Current Medications Medications Dose Ordered Sig/Vidhya Route Start Time Stop Time Status Last Admin Dose Admin Midazolam HCl 50 ml @ 1 mls/hr Q24H IV 04/23/24 11:00 04/28/24 17:55 5 MLS/HR Propofol 100 ml @ 3.483 mls/ hr Q24H IV 04/23/24 12:45 04/28/24 17:54 13.932 MLS/HR Norepinephrine Bitartrate 250 ml @ 3.75 mls/hr Q24H IV 04/23/24 13:30 04/27/24 07:49 3.75 MLS/HR Enoxaparin Sodium 40 mg DAILY SC 04/24/24 10:00 04/28/24 09:40 40 MG Acetaminophen 650 mg Q6HP PRN PO 04/23/24 19:45 Pantoprazole Sodium 40 mg DAILY IV 04/25/24 10:00 04/28/24 09:40 40 MG Fentanyl Citrate 250 ml @ 2.5 mls/hr Q24H IV 04/24/24 10:45 04/28/24 02:10 5 MLS/HR Methylprednisolone Sodium Succinate 40 mg BID IV 04/24/24 22:00 04/28/24 21:03 40 MG Enteral Nutritional Formula 1,000 ml 30ML/HR GT 04/24/24 14:45 04/28/24 17:07 1,000 ML Docusate Sodium 100 mg BID GT 04/24/24 22:00 04/28/24 21:02 100 MG Albuterol 2.5 mg Q4HR NEB 04/24/24 22:00 04/28/24 18:37 2.5 MG Ipratropium [place] 0.5 mg Q4HR NEB 04/24/24 22:00 04/28/24 18:38 0.5 MG Doxycycline Hyclate 100 ml @ 50 mls/hr Q12H IV 04/25/24 17:30 04/28/24 17:55 50 MLS/HR Metoclopramide HCl 5 mg Q8HPRN PRN IV 04/26/24 15:45 Budesonide 0.5 mg Q12HR NEB 04/27/24 22:00 04/28/24 18:37 0.5 MG Dexmedetomidine HCl 400 mcg/ Dextrose 100 ml @ 6.185 mls/ hr [id number] IV 04/27/24 21:15 04/28/24 14:08 12.37 MLS/HR Piperacillin Sod/ Tazobactam Sod 100 ml @ 25 mls/hr Q8H IV 04/28/24 08:00 04/28/24 15:16 25 MLS/HR objective Gen.: Patient lying in bed in medical ICU. Sedated, intubated on mechanical ventilator. Head: Normocephalic, atraumatic. Eyes: PERRLA. Ears: Normal external anatomy. Throat: Endotracheal tube and orogastric tube in place. Neck: Supple, trachea midline. Chest: Transmitted breath sounds bilaterally. Decreased air entry bilaterally. No wheezing. Bibasilar crackles. Cardiovascular: Positive S1, positive S2. Regular rate and rhythm. Abdomen: Positive bowel sounds in all 4 quadrants. Soft, nontender, nondistended. : Corcoran in place. Normal external genitalia. Rectal: Deferred. Skin: Warm, dry. Intact. Extremities: 2+ radial pulses bilaterally. No lower extremity edema. Neuro: Sedated. laboratory and microbiology Laboratory Tests 04/28/24 03:09 Test 04/28/24 03:09 Range/Units Serum Glucose 130 H 74-106 mg/dL Assessment/Plan Impression: Acute hypoxic/hypercapnic respiratory failure On mechanical ventilator COPD exacerbation Morbid obesity Events: Remains on vent support On AC mode; RR 22, VT 500 -->450, PEEP 5, FiO2 of 45 -->50% Sedated on Propofol, Versed Fentanyl drip for analgesia Off Levophed, hemodynamically stable. ABG reviewed, compensated. Continue bronchodilators Continue IV steroids Continue antibiotics. CPAP trial in AM. Tolerated CPAP today for 4 hours. Labs and imaging reviewed. Rest of plan as noted below. Plan: s/p intubation on mechanical ventilator. CXR image and report reviewed. Devices in place. Multifocal airspace disease. No pneumothorax. No pleural effusion. On AC mode; RR 22, VT 450, PEEP 5, FiO2 of 50% Titrate FIO2 to keep O2 saturation above 90%. VAP bundle. Daily ABG and CXR while intubated Sedate for ventilator synchrony - On Versed, Propofol Precedex OK for agitation if necessary Continue bronchodilators/Pulmicort. Continue steroids Continue antibiotics. Pressors if necessary for hemodynamic support Titrate to keep mean arterial pressure greater than 65 mmHg. Monitor renal function Monitor electrolytes. Supplement as necessary. Monitor ins and outs. Maintain euvolemia. Taper sedation as tolerated SBT/DERICK GI prophylaxis. DVT prophylaxis. Prognosis: Poor given patient's multiple co-morbidities. Condition: Critical Rest of plan per hospitalist and other consultants. A total of 35 minutes of critical care time was spent reviewing the patient record, examining the patient, making a diagnostic and therapeutic plan, discussing this plan with the medical personnel, following up on diagnostic studies and following the patient for clinical stability excluding any and all procedures. At least 50% of this time was spent in direct, [id number] contact. Thank you Dr. Arevalo, for allowing me to participate in this patient's care. Further recommendations will depend on the patient's clinical course. Please do not hesitate to contact me if you have any questions or concerns. This medical document was created using an electronic medical record system with [employer] dictation system. Although these documentations are being carefully reviewed, there may still be some phonetic and typographical changes. The errors are purely typographical, due to imperfection on the software program, and do not reflect any compromise in the patient's medical care. Dietary Evaluation Review Comments: for higher protein content and better controlled serum glucose, recommend Glucerna 40 ml/hr, (58g Pro, 1152 kcal), supplement with amino acid @41 ml/hr, the total nutrient support will be 100g pro, and 1662 kcal providing 81% of pro and 122% energy needs Expected Outcomes/Goals: off went, healing wounds and gradual wt loss. Plan discussed with: Other (ROXANNA Arboleda) Critical Care Time(min): 35 ROSENDO TARANGO MD Apr 28, 2024 21:22
[2024-04-29] VITALS (122 sets, daily range): BP systolic 85–141; BP diastolic 42–98; PULSE 56–115; RESP 17–31; TEMP 98.1–100.4; O2SAT 91–100
[2024-04-29 04:10] LABS: Hematocrit 35.6 % (36.0-46.0); Hemoglobin 11.6 g/dL (12.2-16.2); Mean Corpuscular Hemoglobin 29.9 pg (28.0-32.0); Mean Corpuscular Hgb Conc. 32.5 g/dL (32.0-36.0); Mean Corpuscular Volume 91.9 fL (80.0-100.0); Platelet Count (auto) 180 10^3/uL (140-450); Red Blood Cells 3.87 10^6/uL (4.0-5.20); Red Cell Distribution Width 15.5 % (11.8-14.3); White Blood Cell 8.5 10^3/uL (4.4-10.8)
[2024-04-29 04:27] LABS: Albumin 3.6 g/dL (3.2-4.8); Alkaline Phosphatase 60 U/L (46-116); Anion Gap 6 (5-15); BUN/Creatinine Ratio 34.7 (10.0-20.0); Bilirubin, Total 0.3 mg/dL (0.2-1.0); Calcium 9.4 mg/dL (8.7-10.4); Carbon Dioxide 30 mmol/L (20-31); Chloride 106 mmol/L (98-107); Potassium 4.1 mmol/L (3.5-5.1); Sodium 142 mmol/L (136-145); Total Protein 6.2 g/dL (5.7-8.2)
[2024-04-29 04:28] LABS: Band Neutrophils % (manual) 0; Basophils % (manual) 0 (0.0-2.0); Blast Cells 0; Eosinophils % (manual) 0 (0-7); Metamyelocytes % 0; Myelocytes % 0; Promyelocytes % 0; Reactive Lymphocytes 0
[2024-04-29 04:41] LABS: Alanine Aminotransferase 70 U/L (7-40); Aspartate Aminotransferase 60 U/L (13-40); Blood Urea Nitrogen 26 mg/dL (9-23); Glucose 112 mg/dL (74-106)
--- NOTE | 2024-04-29 05:13 | DVH ---
EXAM: XR Chest, 1 View CLINICAL INDICATION: RESPIRATORY FAILURE TECHNIQUE: Frontal view of the chest. COMPARISON: XY CHEST PORTABLE on DOS: 04/28/24, XY CHEST XRAY 1 VIEW on DOS: 04/27/24, XY CHEST XRAY 1 VIEW on DOS: 04/26/24, XY CHEST XRAY 1 VIEW on DOS: 04/25/24, XY CHEST PORTABLE on DOS: 04/24/24 FINDINGS: LUNGS AND PLEURAL SPACES: Mild CHF, stable. No consolidation. No pneumothorax. HEART: Unremarkable. No cardiomegaly. MEDIASTINUM: Unremarkable. Normal mediastinal contour. BONES/JOINTS: Unremarkable. No acute fracture. TUBES, LINES AND DEVICES: Stable tubes and lines. OTHER FINDINGS: . IMPRESSION: Mild CHF, stable.
[2024-04-29 05:23] LABS: Lymphocytes % (manual) 11 (10.0-50.0); Monocytes % (manual) 7 (0-12); Platelet Estimate Adequate
[2024-04-29 06:56] LABS: Base Excess 2.3 mmol/L (-2.0-3.0)
[2024-04-29] MEDS: FUROSEMIDE 20 MG/2 ML VIAL IV ONE (11:29)
[2024-04-29] MEDS ORDERED: VANCOMYCIN PER PHARMACY 0 MG IV SCH (14:30)
[2024-04-29] MEDS: VANCOMYCIN 1.75GM/350ML 350 ML IV ONE (15:11)
--- NOTE | 2024-04-29 18:39 | DVHPNRES ---
Progress Note Date Seen: Apr 29, 2024 Resident Creating Document: HERMILO MENDEZ RESIDENT Medical Necessity Reason Pt with a Central, PICC or Fol: Yes The following are medically ne: Central Line, Corcoran Catheter Reason for corcoran catheter: Strict I&O Subjective Review of Systems DEISI MCGILL is a 53-year-old female with a PMH of COPD on home oxygen 3L presented to the ED with the chief complaints of shortness of breath. Patient seen and examined at the bedside. Unable to obtain ROS due to patient's clinical status. Currently sedated, intubated on mechanical ventilation. Continuously monitoring. Patient reports: No new complaints Changes from previous H/P or p: No Changes Objective vital signs Vital Sign Date Time Temp Pulse Resp B/P (MAP) Pulse Ox O2 Delivery O2 Flow Rate FiO2 04/29/24 18:00 62 04/29/24 18:00 22 97 Mechanical Ventilator+ 50 50 04/29/24 17:40 98.6 100/54 (69) 209.5 Total Intake and Output 04/28/24 04/28/24 04/29/24 15:00 23:00 07:00 Intake Total 280.085 ml 570.830 ml 726.5 ml Output Total 750 ml 2200 ml Balance 280.085 ml -179.170 ml -1473.5 ml medications Current Medications Medications Dose Ordered Sig/Vidhya Route Start Time Stop Time Status Last Admin Dose Admin Midazolam HCl 50 ml @ 1 mls/hr Q24H IV 04/23/24 11:00 04/29/24 18:24 4 MLS/HR Propofol 100 ml @ 3.483 mls/ hr Q24H IV 04/23/24 12:45 04/29/24 18:23 20.898 MLS/HR Norepinephrine Bitartrate 250 ml @ 3.75 mls/hr Q24H IV 04/23/24 13:30 04/27/24 07:49 3.75 MLS/HR Enoxaparin Sodium 40 mg DAILY SC 04/24/24 10:00 04/29/24 09:14 40 MG Acetaminophen 650 mg Q6HP PRN PO 04/23/24 19:45 Pantoprazole Sodium 40 mg DAILY IV 04/25/24 10:00 04/29/24 09:13 40 MG Fentanyl Citrate 250 ml @ 2.5 mls/hr Q24H IV 04/24/24 10:45 04/29/24 18:25 5 MLS/HR Methylprednisolone Sodium Succinate 40 mg BID IV 04/24/24 22:00 04/29/24 09:14 40 MG Enteral Nutritional Formula 1,000 ml 30ML/HR GT 04/24/24 14:45 04/28/24 17:07 1,000 ML Docusate Sodium 100 mg BID GT 04/24/24 22:00 04/29/24 09:13 100 MG Albuterol 2.5 mg Q4HR NEB 04/24/24 22:00 04/29/24 18:26 2.5 MG Ipratropium [place] 0.5 mg Q4HR NEB 04/24/24 22:00 04/29/24 18:26 0.5 MG Metoclopramide HCl 5 mg Q8HPRN PRN IV 04/26/24 15:45 Budesonide 0.5 mg Q12HR NEB 04/27/24 22:00 04/29/24 18:26 0.5 MG Dexmedetomidine HCl 400 mcg/ Dextrose 100 ml @ 6.185 mls/ hr [id number] IV 04/27/24 21:15 04/28/24 14:08 12.37 MLS/HR Piperacillin Sod/ Tazobactam Sod 100 ml @ 25 mls/hr Q8H IV 04/28/24 08:00 04/29/24 15:11 25 MLS/HR Vancomycin HCl 0 ml @ 0 mls/hr UD IV 04/29/24 14:30 Vancomycin HCl 250 ml @ 250 mls/hr Q8H IV 04/30/24 07:00 Examination Pt is lying on bed General Appearance:Currently sedated, intubated on mechanical ventilation HEENT: Atraumatic, Mucous membranes moist/pink Respiratory: Normal air movement on Mechanical ventilation Cardiovascular: Regular rate, Normal S1, Normal S2 Abdominal: Active bowel sounds, Soft, no distention, no tenderness Extremities: 1 edema in BLE, redness, warmth improved since yesterday Skin: No Significant rash Neuro: pupils are constricted, brisk, sedated Psych/Mental Status: Mental status NL, Mood NL Nurse was there as sharperone during examination laboratory and microbiology Laboratory Tests 04/29/24 03:02 Test 04/29/24 03:02 Range/Units Serum Glucose 112 H 74-106 mg/dL Microbiology Date/Time Source Procedure Growth Status 04/24/24 12:01 Voided Urine Urine Culture - Final Complete 04/23/24 23:30 Nose MRSA Screen - Final Complete 04/23/24 11:10 Sputum Gram Stain - Final Complete 04/23/24 11:10 Sputum Respiratory Culture - Final Complete 04/23/24 08:40 Blood Blood Culture - Final NO GROWTH AFTER 5 DAYS OF INCUBATION. Complete Labs and/or images reviewed: Labs reviewed by me, Image(s) reviewed by me Problem List/Assessment/Plan Problem List/Assessment/Plan NEUROLOGY # Acute metabolic/toxic encephalopathy likely due to hypercarbia CARDIOLOGY # ? Acute on Chronic diastolic CHF , - Echocardiogram EF is estimated at 55% - BNP WNL # Shock likely sepsis - Levophed dc 04/28, Versed, Diprivan , Fentanyl off 04/29 - currently on vanc and Zosyn RESPIRATORY # Acute on chronic hypoxic/hypercapnic respiratory failure s/p intubation # COPD exacerbation # ? Septic shock - ICU status - intubated, sedated, on mechanical ventilation - RR 22, VT 450, FiO2 50%, peep 5 - Levophed Versed, Diprivan , Fentanyl on going - currently on vanc and Zosyn - DC doxycycline - Monitor lab - Staretd methylpred 40 mg GI/LIVER # morbid obesity with a BMI 47.1 - nutritional consult /KIDNEY/METABOLIC MSK # cellulitis bilateral lower extremity -on Zosyn # Osteoarthritis # ruled out DVT - ordered venous scan - negative scan HEME-ONC ENDOCRINE # Vit D deficiency - Repleting SKIN # Tobacco abuse disorder # Tobacco dependence LINES Intubation 04/23 Left IJ CVC 04/23 Corcoran 04/23 DRIPS Levophed Versed, Diprivan , Fentanyl NUTRITION Jevity 30 mL/hour PUD ppx: Protonix VTE ppx: Lovenox Goals of care discussed with the family for more than 27 minutes: Full code status Critical care time including chart review, discussing with the patient's family excluding procedures: 57 minutes Case discussed with Dr. Vance. Plan discussed with: Son My Orders My Orders Orders - HERMILO MENDEZ RESIDENT Procedure Category Date Status Time Comprehensive LAB 04/30/24 Verified Metabolic Panel 04:00 Magnesium LAB 04/30/24 Verified 04:00 Chest Xray 1 View XY 04/30/24 Logged 04:00 Abg W/ Co-Ox RT 04/30/24 Logged 04:00 Furosemide Injection PHA 04/30/24 In Process (Lasix Injection) 10:00 Dietary Evaluation Review Comments: for higher protein content and better controlled serum glucose, recommend Glucerna 40 ml/hr, (58g Pro, 1152 kcal), supplement with amino acid @41 ml/hr, the total nutrient support will be 100g pro, and 1662 kcal providing 81% of pro and 122% energy needs Expected Outcomes/Goals: off went, healing wounds and gradual wt loss. Date of Service: Apr 30, 2024 Billing Provider: ANUJ VANCE MD Common Visit Codes: [id number] CARE 30-74 MIN HERMILO MENDEZ RESIDENT Apr 29, 2024 18:39 ANUJ VANCE MD Apr 30, 2024 14:54
[2024-04-30] VITALS (116 sets, daily range): BP systolic 88–134; BP diastolic 44–71; PULSE 54–86; RESP 15–28; TEMP 98.1–99.5; O2SAT 91–100
[2024-04-30 04:01] LABS: Basophils # (auto) 0.1 10 ^3/uL (0-0.2); Basophils % (auto) 0.5 % (0.0-2.0); Eosinophils # (auto) 0 10 ^3/uL (0-0.8); Eosinophils % (auto) 0.1 % (0.0-7.0); Hematocrit 37.6 % (36.0-46.0); Hemoglobin 12.2 g/dL (12.2-16.2); Lymphocytes # (auto) 0.7 10 ^3/uL (0.4-5.4); Lymphocytes % (auto) 6.8 % (10.0-50.0); Mean Corpuscular Hemoglobin 29.5 pg (28.0-32.0); Mean Corpuscular Hgb Conc. 32.4 g/dL (32.0-36.0); Mean Corpuscular Volume 91.1 fL (80.0-100.0); Monocytes # (auto) 0.4 10 ^3/uL (0-1.3); Monocytes % (auto) 4.1 % (0.0-12.0); Neutrophils # (auto) 9.4 10 ^3/uL (1.6-8.6); Neutrophils % (auto) 88.5 % (37.0-80.0); Platelet Count (auto) 160 10^3/uL (140-450); Red Blood Cells 4.13 10^6/uL (4.0-5.20); Red Cell Distribution Width 15.6 % (11.8-14.3); White Blood Cell 10.7 10^3/uL (4.4-10.8)
[2024-04-30 04:23] LABS: Albumin 3.6 g/dL (3.2-4.8); Alkaline Phosphatase 67 U/L (46-116); Anion Gap 11 (5-15); Aspartate Aminotransferase 39 U/L (13-40); BUN/Creatinine Ratio 34.7 (10.0-20.0); Calcium 9.3 mg/dL (8.7-10.4); Carbon Dioxide 28 mmol/L (20-31); Chloride 104 mmol/L (98-107); Potassium 3.7 mmol/L (3.5-5.1); Sodium 143 mmol/L (136-145)
[2024-04-30 04:24] LABS: Bilirubin, Total 0.4 mg/dL (0.2-1.0); Total Protein 6.5 g/dL (5.7-8.2)
[2024-04-30 04:39] LABS: Alanine Aminotransferase 63 U/L (7-40); Blood Urea Nitrogen 26 mg/dL (9-23); Glucose 109 mg/dL (74-106)
--- NOTE | 2024-04-30 05:15 | DVH ---
CHEST RADIOGRAPH Indication: pna Technique: Single frontal view of the chest was obtained Comparison: XY CHEST PORTABLE on DOS: 04/29/24 FINDINGS: Lines and Tubes: The endotracheal tube terminates 5.3 cm above the jazmyne. The left central venous c atheter terminates in the superior vena cava. The enteric tube courses below the left hemidiaphragm a nd the tip extends outside the field of view. Lungs: Diffuse bilateral opacities noted. Pleura: No pleural effusion. No pneumothorax. No pneumothorax. Cardiomediastinal contours: Stable cardiomegaly. Bones: No acute osseous abnormality. IMPRESSION: 1. Diffuse bilateral opacities. 2. Cardiomegaly.
[2024-04-30 07:20] LABS: Base Excess 6.3 mmol/L (-2.0-3.0)
[2024-04-30] MEDS: VANCOMYCIN 1GM/250ML KIT 250 ML IV SCH (07:23)
[2024-04-30] MEDS: FUROSEMIDE 20 MG/2 ML VIAL IV ONE (08:41)
--- NOTE | 2024-04-30 17:25 | DVHPNRES ---
Progress Note Date Seen: Apr 30, 2024 Resident Creating Document: HERMILO MENDEZ RESIDENT Medical Necessity Reason Pt with a Central, PICC or Fol: Yes The following are medically ne: Central Line, Corcoran Catheter Reason for corcoran catheter: Strict I&O Subjective Review of Systems DEISI MCGILL is a 53-year-old female with a PMH of COPD on home oxygen 3L presented to the ED with the chief complaints of shortness of breath. Patient seen and examined at the bedside. Unable to obtain ROS due to patient's clinical status. Currently sedated, intubated on mechanical ventilation. Continuously monitoring. CPAP tomorrow. Changes from previous H/P or p: No Changes Objective vital signs Vital Sign Date Time Temp Pulse Resp B/P (MAP) Pulse Ox O2 Delivery O2 Flow Rate FiO2 04/30/24 17:12 98.6 77 20 108/58 (75) 95 209.5 04/30/24 16:00 Mechanical Ventilator+ 50 50 Total Intake and Output 04/29/24 04/29/24 04/30/24 15:00 23:00 07:00 Intake Total 238 ml 848.740 ml 531.786 ml Output Total 2800 ml 775 ml Balance 238 ml -1951.260 ml -243.214 ml medications Current Medications Medications Dose Ordered Sig/Vidhya Route Start Time Stop Time Status Last Admin Dose Admin Midazolam HCl 50 ml @ 1 mls/hr Q24H IV 04/23/24 11:00 04/30/24 06:59 4 MLS/HR Propofol 100 ml @ 3.483 mls/ hr Q24H IV 04/23/24 12:45 04/30/24 16:28 20.898 MLS/HR Norepinephrine Bitartrate 250 ml @ 3.75 mls/hr Q24H IV 04/23/24 13:30 04/27/24 07:49 3.75 MLS/HR Enoxaparin Sodium 40 mg DAILY SC 04/24/24 10:00 04/30/24 08:42 40 MG Acetaminophen 650 mg Q6HP PRN PO 04/23/24 19:45 Pantoprazole Sodium 40 mg DAILY IV 04/25/24 10:00 04/30/24 08:41 40 MG Fentanyl Citrate 250 ml @ 2.5 mls/hr Q24H IV 04/24/24 10:45 04/29/24 18:25 5 MLS/HR Methylprednisolone Sodium Succinate 40 mg BID IV 04/24/24 22:00 04/30/24 08:42 40 MG Enteral Nutritional Formula 1,000 ml 30ML/HR GT 04/24/24 14:45 04/28/24 17:07 1,000 ML Docusate Sodium 100 mg BID GT 04/24/24 22:00 04/30/24 08:43 100 MG Albuterol 2.5 mg Q4HR NEB 04/24/24 22:00 04/30/24 13:25 2.5 MG Ipratropium [place] 0.5 mg Q4HR NEB 04/24/24 22:00 04/30/24 13:25 0.5 MG Metoclopramide HCl 5 mg Q8HPRN PRN IV 04/26/24 15:45 Budesonide 0.5 mg Q12HR NEB 04/27/24 22:00 04/30/24 06:28 0.5 MG Dexmedetomidine HCl 400 mcg/ Dextrose 100 ml @ 6.185 mls/ hr [id number] IV 04/27/24 21:15 04/28/24 14:08 12.37 MLS/HR Piperacillin Sod/ Tazobactam Sod 100 ml @ 25 mls/hr Q8H IV 04/28/24 08:00 04/30/24 15:34 25 MLS/HR Vancomycin HCl 0 ml @ 0 mls/hr UD IV 04/29/24 14:30 Vancomycin HCl 250 ml @ 250 mls/hr Q8H IV 04/30/24 07:00 04/30/24 14:18 250 MLS/HR Examination Pt is lying on bed General Appearance:Currently sedated, intubated on mechanical ventilation HEENT: Atraumatic, Mucous membranes moist/pink Respiratory: Normal air movement on Mechanical ventilation Cardiovascular: Regular rate, Normal S1, Normal S2 Abdominal: Active bowel sounds, Soft, no distention, no tenderness Extremities: 1 edema in BLE, redness, warmth improved since yesterday Skin: No Significant rash Neuro: pupils are constricted, brisk, sedated Psych/Mental Status: Mental status NL, Mood NL Nurse was there as sharperone during examination laboratory and microbiology Laboratory Tests 04/30/24 03:25 Test 04/30/24 03:25 Range/Units Serum Glucose 109 H 74-106 mg/dL Microbiology Date/Time Source Procedure Growth Status 04/24/24 12:01 Voided Urine Urine Culture - Final Complete 04/23/24 23:30 Nose MRSA Screen - Final Complete 04/23/24 11:10 Sputum Gram Stain - Final Complete 04/23/24 11:10 Sputum Respiratory Culture - Final Complete 04/23/24 08:40 Blood Blood Culture - Final NO GROWTH AFTER 5 DAYS OF INCUBATION. Complete Labs and/or images reviewed: Labs reviewed by me, Image(s) reviewed by me Problem List/Assessment/Plan Problem List/Assessment/Plan NEUROLOGY # Acute metabolic/toxic encephalopathy likely due to hypercarbia CARDIOLOGY # ? Acute on Chronic diastolic CHF , - Echocardiogram EF is estimated at 55% - BNP WNL # Shock likely sepsis - Levophed dc 04/28, Versed, Diprivan , Fentanyl off 04/29 - currently on vanc and Zosyn RESPIRATORY # Acute on chronic hypoxic/hypercapnic respiratory failure s/p intubation # COPD exacerbation # ? Septic shock - ICU status - intubated, sedated, on mechanical ventilation - RR 22, VT 450, FiO2 50%, peep 5 - Levophed Versed, Diprivan , Fentanyl on going - currently on vanc and Zosyn - DC doxycycline - Monitor lab - Staretd methylpred 40 mg GI/LIVER # morbid obesity with a BMI 47.1 - nutritional consult /KIDNEY/METABOLIC MSK # cellulitis bilateral lower extremity -on Zosyn # Osteoarthritis # ruled out DVT - ordered venous scan - negative scan HEME-ONC ENDOCRINE # Vit D deficiency - Repleting SKIN # Tobacco abuse disorder # Tobacco dependence LINES Intubation 04/23 Left IJ CVC 04/23 [place] 04/23 DRIPS Levophed Versed, Diprivan , Fentanyl NUTRITION Jevity 30 mL/hour PUD ppx: Protonix VTE ppx: Lovenox Goals of care discussed with the family for more than 27 minutes: Full code status Critical care time including chart review, discussing with the patient's family excluding procedures: 57 minutes Case discussed with Dr. Vance. CPAP trial tomorrow. Plan discussed with: Son My Orders My Orders Orders - HERMILO MENDEZ RESIDENT Procedure Category Date Status Time Comprehensive LAB 05/01/24 Verified Metabolic Panel 04:00 Complete Blood Count LAB 05/01/24 Verified 04:00 Magnesium LAB 05/01/24 Verified 04:00 Chest Xray 1 View XY 05/01/24 Logged 04:00 Abg W/ Co-Ox RT 05/01/24 Logged 04:00 Dietary Evaluation Review Comments: for higher protein content and better controlled serum glucose, recommend Glucerna 40 ml/hr, (58g Pro, 1152 kcal), supplement with amino acid @41 ml/hr, the total nutrient support will be 100g pro, and 1662 kcal providing 81% of pro and 122% energy needs Expected Outcomes/Goals: off went, healing wounds and gradual wt loss. Date of Service: Apr 30, 2024 Billing Provider: ANUJ VANCE MD Common Visit Codes: [id number] CARE 30-74 MIN HERMILO MENDEZ RESIDENT Apr 30, 2024 17:25 ANUJ VANCE MD May 01, 2024 15:45
[2024-05-01] VITALS (107 sets, daily range): BP systolic 11–137; BP diastolic 35–88; PULSE 51–92; RESP 15–37; TEMP 98.1–99.5; O2SAT 22–98
[2024-05-01 03:59] LABS: Basophils # (auto) 0.1 10 ^3/uL (0-0.2); Basophils % (auto) 0.4 % (0.0-2.0); Eosinophils # (auto) 0 10 ^3/uL (0-0.8); Eosinophils % (auto) 0.1 % (0.0-7.0); Hematocrit 39.8 % (36.0-46.0); Hemoglobin 12.8 g/dL (12.2-16.2); Lymphocytes # (auto) 0.8 10 ^3/uL (0.4-5.4); Lymphocytes % (auto) 6.6 % (10.0-50.0); Mean Corpuscular Hgb Conc. 32.1 g/dL (32.0-36.0); Mean Corpuscular Volume 90.2 fL (80.0-100.0); Monocytes # (auto) 0.6 10 ^3/uL (0-1.3); Monocytes % (auto) 5.2 % (0.0-12.0); Neutrophils # (auto) 10.6 10 ^3/uL (1.6-8.6); Neutrophils % (auto) 87.7 % (37.0-80.0); Platelet Count (auto) 209 10^3/uL (140-450); Red Cell Distribution Width 15.5 % (11.8-14.3); White Blood Cell 12.1 10^3/uL (4.4-10.8)
[2024-05-01 04:05] LABS: Alkaline Phosphatase 68 U/L (46-116); Anion Gap 7 (5-15); Aspartate Aminotransferase 21 U/L (13-40); BUN/Creatinine Ratio 29.2 (10.0-20.0); Blood Urea Nitrogen 21 mg/dL (9-23); Calcium 9.5 mg/dL (8.7-10.4); Chloride 102 mmol/L (98-107); Potassium 3.9 mmol/L (3.5-5.1); Sodium 141 mmol/L (136-145)
[2024-05-01 04:06] LABS: Albumin 3.8 g/dL (3.2-4.8)
[2024-05-01 04:07] LABS: Alanine Aminotransferase 50 U/L (7-40); Bilirubin, Total 0.4 mg/dL (0.2-1.0); Carbon Dioxide 32 mmol/L (20-31); Glucose 122 mg/dL (74-106); Total Protein 6.6 g/dL (5.7-8.2)
--- NOTE | 2024-05-01 05:15 | DVH ---
CHEST RADIOGRAPH Indication: pna Technique: Single frontal view of the chest was obtained COMPARISON: XY CHEST XRAY 1 VIEW on DOS: 04/30/24, XY CHEST PORTABLE on DOS: 04/29/24, XY CHEST PORTABLE on DOS: 04/28/24, XY CHEST XRAY 1 VIEW on DOS: 04/27/24, XY CHEST XRAY 1 VIEW on DOS: 04/26/24 FINDINGS: Lines and Tubes: Endotracheal tube, enteric catheter and left central venous catheter in satisfactory position. Lungs: Pulmonary vascular congestion Pleura: No effusion. No pneumothorax. Cardiomediastinal contours: Cardiomegaly Bones: Unremarkable IMPRESSION: Lines and tubes in satisfactory position. No significant interval change.
[2024-05-01 07:41] LABS: Base Excess 6.9 mmol/L (-2.0-3.0)
--- NOTE | 2024-05-01 13:51 | DVHPNRES ---
Progress Note Date Seen: May 01, 2024 Resident Creating Document: HERMILO MENDEZ RESIDENT Medical Necessity Reason Pt with a Central, PICC or Fol: Yes The following are medically ne: Central Line, Corcoran Catheter Reason for corcoran catheter: Strict I&O Subjective Review of Systems DEISI MCGILL is a 53-year-old female with a PMH of COPD on home oxygen 3L presented to the ED with the chief complaints of shortness of breath. Patient seen and examined at the bedside. Unable to obtain ROS due to patient's clinical status. failed CPAP trial today due to increased work of breathing, so back on sedation. Continuously monitoring. CPAP tomorrow. Changes from previous H/P or p: No Changes Objective vital signs Vital Sign Date Time Temp Pulse Resp B/P (MAP) Pulse Ox O2 Delivery O2 Flow Rate FiO2 05/01/24 12:00 40 05/01/24 12:00 82 05/01/24 12:00 22 90 Mechanical Ventilator+ 05/01/24 10:45 99.5 124/66 (85) 211.1 Total Intake and Output 04/30/24 04/30/24 05/01/24 15:00 23:00 07:00 Intake Total 897 ml 518.240 ml 306.638 ml Output Total 2350 ml 850 ml Balance 897 ml -1831.760 ml -543.362 ml medications Current Medications Medications Dose Ordered Sig/Vidhya Route Start Time Stop Time Status Last Admin Dose Admin Midazolam HCl 50 ml @ 1 mls/hr Q24H IV 04/23/24 11:00 05/01/24 03:46 3 MLS/HR Propofol 100 ml @ 3.483 mls/ hr Q24H IV 04/23/24 12:45 05/01/24 05:31 20.898 MLS/HR Norepinephrine Bitartrate 250 ml @ 3.75 mls/hr Q24H IV 04/23/24 13:30 04/27/24 07:49 3.75 MLS/HR Enoxaparin Sodium 40 mg DAILY SC 04/24/24 10:00 05/01/24 08:26 40 MG Acetaminophen 650 mg Q6HP PRN PO 04/23/24 19:45 Pantoprazole Sodium 40 mg DAILY IV 04/25/24 10:00 05/01/24 08:25 40 MG Fentanyl Citrate 250 ml @ 2.5 mls/hr Q24H IV 04/24/24 10:45 04/30/24 21:18 5 MLS/HR Methylprednisolone Sodium Succinate 40 mg BID IV 04/24/24 22:00 05/01/24 08:25 40 MG Enteral Nutritional Formula 1,000 ml 30ML/HR GT 04/24/24 14:45 04/28/24 17:07 1,000 ML Docusate Sodium 100 mg BID GT 04/24/24 22:00 05/01/24 08:25 100 MG Albuterol 2.5 mg Q4HR NEB 04/24/24 22:00 05/01/24 10:56 2.5 MG Ipratropium [place] 0.5 mg Q4HR NEB 04/24/24 22:00 05/01/24 10:56 0.5 MG Metoclopramide HCl 5 mg Q8HPRN PRN IV 04/26/24 15:45 Budesonide 0.5 mg Q12HR NEB 04/27/24 22:00 05/01/24 06:50 0.5 MG Dexmedetomidine HCl 400 mcg/ Dextrose 100 ml @ 6.185 mls/ hr [id number] IV 04/27/24 21:15 05/01/24 08:26 6.185 MLS/HR Piperacillin Sod/ Tazobactam Sod 100 ml @ 25 mls/hr Q8H IV 04/28/24 08:00 05/01/24 08:25 25 MLS/HR Vancomycin HCl 0 ml @ 0 mls/hr UD IV 04/29/24 14:30 Vancomycin HCl 250 ml @ 250 mls/hr Q8H IV 04/30/24 07:00 05/01/24 06:47 250 MLS/HR Examination Pt is lying on bed General Appearance:Currently sedated, intubated on mechanical ventilation HEENT: Atraumatic, Mucous membranes moist/pink Respiratory: Normal air movement on Mechanical ventilation Cardiovascular: Regular rate, Normal S1, Normal S2 Abdominal: Active bowel sounds, Soft, no distention, no tenderness Extremities: No edema, redness, warmth improved since admission Skin: No Significant rash Neuro: pupils are reactive, sedated Psych/Mental Status: Mental status NL, Mood NL Nurse was there as sharperone during examination laboratory and microbiology Laboratory Tests 05/01/24 03:26 Test 05/01/24 03:26 Range/Units Serum Glucose 122 H 74-106 mg/dL Microbiology Date/Time Source Procedure Growth Status 04/24/24 12:01 Voided Urine Urine Culture - Final Complete 04/23/24 23:30 Nose MRSA Screen - Final Complete 04/23/24 11:10 Sputum Gram Stain - Final Complete 04/23/24 11:10 Sputum Respiratory Culture - Final Complete 04/23/24 08:40 Blood Blood Culture - Final NO GROWTH AFTER 5 DAYS OF INCUBATION. Complete Labs and/or images reviewed: Labs reviewed by me, Image(s) reviewed by me Problem List/Assessment/Plan Problem List/Assessment/Plan NEUROLOGY # Acute metabolic/toxic encephalopathy likely due to hypercarbia CARDIOLOGY # ? Acute on Chronic diastolic CHF , - Echocardiogram EF is estimated at 55% - BNP WNL # Shock likely sepsis - Levophed dc 04/28, Versed, Diprivan , Fentanyl off 04/29 - currently on vanc and Zosyn RESPIRATORY # Acute on chronic hypoxic/hypercapnic respiratory failure s/p intubation # COPD exacerbation # ? Septic shock - ICU status - intubated, sedated, on mechanical ventilation - RR 22, VT 450, FiO2 50%, peep 5 - Levophed Versed, Diprivan , Fentanyl on going - currently on vanc and Zosyn - DC doxycycline - Monitor lab - Staretd methylpred 40 mg GI/LIVER # morbid obesity with a BMI 47.1 - nutritional consult /KIDNEY/METABOLIC MSK # cellulitis bilateral lower extremity -on Zosyn # Osteoarthritis # ruled out DVT - ordered venous scan - negative scan [facility] # Vit D deficiency - Repleting SKIN # Tobacco abuse disorder # Tobacco dependence LINES Intubation 04/23 Left IJ CVC 04/23 Corcoran 04/23 DRIPS Levophed Versed, Diprivan , Fentanyl NUTRITION Jevity 30 mL/hour PUD ppx: Protonix VTE ppx: Lovenox Goals of care discussed with the family for more than 27 minutes: Full code status Critical care time including chart review, discussing with the patient's family excluding procedures: 57 minutes Case discussed with Dr. Vance. CPAP trial tomorrow. Plan discussed with: Son My Orders My Orders Orders - HERMILO MENDEZ RESIDENT Procedure Category Date Status Time Chest Xray 1 View XY 05/01/24 Resulted 04:00 Abg W/ Co-Ox RT 05/01/24 Logged 04:00 Dietary Evaluation Review Comments: for higher protein content and better controlled serum glucose, recommend Glucerna 40 ml/hr, (58g Pro, 1152 kcal), supplement with amino acid @41 ml/hr, the total nutrient support will be 100g pro, and 1662 kcal providing 81% of pro and 122% energy needs Expected Outcomes/Goals: off went, healing wounds and gradual wt loss. Date of Service: May 02, 2024 Billing Provider: ANUJ VANCE MD Common Visit Codes: [id number] CARE 30-74 MIN HERMILO MENDEZ RESIDENT May 01, 2024 13:51 ANUJ VANCE MD May 02, 2024 11:24
[2024-05-01] MEDS: VANCOMYCIN 1GM/250ML KIT 250 ML IV SCH (23:06)
[2024-05-02] VITALS (117 sets, daily range): BP systolic 83–150; BP diastolic 40–80; PULSE 49–91; RESP 9–31; TEMP 98.2–99.7; O2SAT 87–100
[2024-05-02 04:13] LABS: Hematocrit 40.9 % (36.0-46.0); Hemoglobin 13.5 g/dL (12.2-16.2); Mean Corpuscular Hemoglobin 29.9 pg (28.0-32.0); Mean Corpuscular Hgb Conc. 32.9 g/dL (32.0-36.0); Mean Corpuscular Volume 90.9 fL (80.0-100.0); Platelet Count (auto) 201 10^3/uL (140-450); Red Cell Distribution Width 15.7 % (11.8-14.3); White Blood Cell 10.7 10^3/uL (4.4-10.8)
[2024-05-02 04:22] LABS: Alanine Aminotransferase 38 U/L (7-40); Alkaline Phosphatase 75 U/L (46-116); Anion Gap 9 (5-15); BUN/Creatinine Ratio 21.5 (10.0-20.0); Blood Urea Nitrogen 17 mg/dL (9-23); Calcium 9.7 mg/dL (8.7-10.4); Carbon Dioxide 28 mmol/L (20-31); Chloride 103 mmol/L (98-107); Magnesium 2.2 mg/dL (1.6-2.6); Sodium 140 mmol/L (136-145)
[2024-05-02 04:23] LABS: Albumin 4.2 g/dL (3.2-4.8); Aspartate Aminotransferase 19 U/L (13-40)
[2024-05-02 04:24] LABS: Bilirubin, Total 0.5 mg/dL (0.2-1.0); INR 1.06 (0.9-1.15); Partial Thromboplastin Time 23.4 SEC (24.5-34.5); Prothrombin Time 11.2 sec (9.3-11.8); Total Protein 6.9 g/dL (5.7-8.2)
[2024-05-02 04:37] LABS: Band Neutrophils % (manual) 0; Basophils % (manual) 0 (0.0-2.0); Blast Cells 0; Eosinophils % (manual) 0 (0-7); Metamyelocytes % 0; Myelocytes % 0; Promyelocytes % 0; Reactive Lymphocytes 0
[2024-05-02 04:40] LABS: Glucose 144 mg/dL (74-106); Potassium 3.4 mmol/L (3.5-5.1)
--- NOTE | 2024-05-02 05:10 | DVH ---
CHEST RADIOGRAPH Indication: pna Technique: Single frontal view of the chest was obtained Comparison: XY CHEST XRAY 1 VIEW on DOS: 05/01/24 FINDINGS: Lines and Tubes: The endotracheal tube terminates 3.3 cm above the jazmyne. Left central venous sandip ter terminates in the superior vena cava. The enteric tube courses below the left hemidiaphragm and t he tip extends outside the field of view. Lungs: Bilateral opacities which may reflect pulmonary congestion similar to prior study. Pleura: No effusion. No pneumothorax. Cardiomediastinal contours: Stable in size. Bones: No acute osseous abnormality. IMPRESSION: 1. No significant interval change.
[2024-05-02 05:45] LABS: Large Platelets FEW; Lymphocytes % (manual) 9 (10.0-50.0); Monocytes % (manual) 3 (0-12)
[2024-05-02 05:47] LABS: Platelet Estimate Adequa
[2024-05-02 08:08] LABS: Base Excess 4.9 mmol/L (-2.0-3.0)
[2024-05-02] MEDS: POTASSIUM CHL 20MEQ/100ML 100 ML IV ONE (10:21)
[2024-05-02] MEDS: FUROSEMIDE 20 MG/2 ML VIAL IV ONE (12:46)
[2024-05-02] MEDS: LIDOCAINE 1% (LOCAL ANESTH.) PF 5ml SDV ID ONE (13:00)
--- NOTE | 2024-05-02 18:22 | DVHPNRES ---
Progress Note Date Seen: May 02, 2024 Resident Creating Document: HERMILO MENDEZ RESIDENT Medical Necessity Reason Pt with a Central, PICC or Fol: Yes The following are medically ne: Central Line, Corcoran Catheter Reason for corcoran catheter: Strict I&O Subjective Review of Systems DEISI MCGILL is a 53-year-old female with a PMH of COPD on home oxygen 3L presented to the ED with the chief complaints of shortness of breath. Patient seen and examined at the bedside. Unable to obtain ROS due to patient's clinical status. failed CPAP trial today due to increased work of breathing, so back on sedation. Continuously monitoring. Increased pulmonary venous congestion, given 1 dose of Lasix. CPAP trial tomorrow. Changes from previous H/P or p: No Changes Objective vital signs Vital Sign Date Time Temp Pulse Resp B/P (MAP) Pulse Ox O2 Delivery O2 Flow Rate FiO2 05/02/24 17:36 108/53 05/02/24 15:37 64 22 92 50 05/02/24 14:25 Mechanical Ventilator+ 05/02/24 13:02 99.1 210.4 Total Intake and Output 05/01/24 05/01/24 05/02/24 15:00 23:00 07:00 Intake Total 225.788 ml 361.553 ml 815.570 ml Output Total 550 ml 1350 ml Balance 225.788 ml -188.447 ml -534.430 ml medications Current Medications Medications Dose Ordered Sig/Vidhya Route Start Time Stop Time Status Last Admin Dose Admin Midazolam HCl 50 ml @ 1 mls/hr Q24H IV 04/23/24 11:00 05/01/24 03:46 3 MLS/HR Propofol 100 ml @ 3.483 mls/ hr Q24H IV 04/23/24 12:45 05/02/24 17:36 10.449 MLS/HR Norepinephrine Bitartrate 250 ml @ 3.75 mls/hr Q24H IV 04/23/24 13:30 05/01/24 23:07 3.75 MLS/HR Enoxaparin Sodium 40 mg DAILY SC 04/24/24 10:00 05/02/24 10:21 40 MG Acetaminophen 650 mg Q6HP PRN PO 04/23/24 19:45 Pantoprazole Sodium 40 mg DAILY IV 04/25/24 10:00 05/02/24 10:22 40 MG Fentanyl Citrate 250 ml @ 2.5 mls/hr Q24H IV 04/24/24 10:45 05/02/24 03:41 20 MLS/HR Methylprednisolone Sodium Succinate 40 mg BID IV 04/24/24 22:00 05/02/24 10:22 40 MG Enteral Nutritional Formula 1,000 ml 30ML/HR GT 04/24/24 14:45 05/01/24 19:30 1,000 ML Docusate Sodium 100 mg BID GT 04/24/24 22:00 05/01/24 21:50 100 MG Albuterol 2.5 mg Q4HR NEB 04/24/24 22:00 05/02/24 13:41 2.5 MG Ipratropium [place] 0.5 mg Q4HR NEB 04/24/24 22:00 05/02/24 13:41 0.5 MG Metoclopramide HCl 5 mg Q8HPRN PRN IV 04/26/24 15:45 Budesonide 0.5 mg Q12HR NEB 04/27/24 22:00 05/02/24 06:52 0.5 MG Dexmedetomidine HCl 400 mcg/ Dextrose 100 ml @ 6.185 mls/ hr [id number] IV 04/27/24 21:15 05/02/24 11:48 15.463 MLS/HR Piperacillin Sod/ Tazobactam Sod 100 ml @ 25 mls/hr Q8H IV 04/28/24 08:00 05/02/24 16:48 25 MLS/HR Vancomycin HCl 0 ml @ 0 mls/hr UD IV 04/29/24 14:30 Vancomycin HCl 250 ml @ 250 mls/hr Q12H IV 05/01/24 23:00 05/02/24 12:46 250 MLS/HR Sodium Chloride 10 ml QSHIFT@10,22 IV 05/02/24 22:00 Examination Pt is lying on bed General Appearance:Currently sedated, intubated on mechanical ventilation HEENT: Atraumatic, Mucous membranes moist/pink Respiratory: Normal air movement on Mechanical ventilation Cardiovascular: Regular rate, Normal S1, Normal S2 Abdominal: Active bowel sounds, Soft, no distention, no tenderness Extremities: No edema, redness, warmth improved since admission Skin: No Significant rash Neuro: pupils are reactive, sedated Psych/Mental Status: Mental status NL, Mood NL Nurse was there as sharperone during examination laboratory and microbiology Laboratory Tests 05/02/24 03:13 Test 05/02/24 03:13 Range/Units Serum Glucose 144 H 74-106 mg/dL Microbiology Date/Time Source Procedure Growth Status 04/24/24 12:01 Voided Urine Urine Culture - Final Complete 04/23/24 23:30 Nose MRSA Screen - Final Complete 04/23/24 11:10 Sputum Gram Stain - Final Complete 04/23/24 11:10 Sputum Respiratory Culture - Final Complete 04/23/24 08:40 Blood Blood Culture - Final NO GROWTH AFTER 5 DAYS OF INCUBATION. Complete Labs and/or images reviewed: Labs reviewed by me, Image(s) reviewed by me Problem List/Assessment/Plan Problem List/Assessment/Plan NEUROLOGY # Acute metabolic/toxic encephalopathy likely due to hypercarbia CARDIOLOGY # ? Acute on Chronic diastolic CHF , - Echocardiogram EF is estimated at 55% - BNP WNL # Shock likely sepsis - Levophed dc 04/28, Versed, Diprivan , Fentanyl off 04/29 - currently on vanc and Zosyn RESPIRATORY # Acute on chronic hypoxic/hypercapnic respiratory failure s/p intubation- failed cpap trial # COPD exacerbation # ? Septic shock - ICU status - intubated, sedated, on mechanical ventilation - RR 22, VT 450, FiO2 50%, peep 5 - Levophed Versed, Diprivan , Fentanyl on going - currently on vanc and Zosyn - DC doxycycline - Monitor lab - Staretd methylpred 40 mg GI/LIVER # morbid obesity with a BMI 47.1 - nutritional consult /KIDNEY/METABOLIC MSK # cellulitis bilateral lower extremity -on Zosyn # Osteoarthritis # ruled out DVT - ordered venous scan - negative scan [facility] ENDO[facility] # Vit D deficiency - Repleting SKIN # Tobacco abuse disorder # Tobacco dependence LINES Intubation 04/23 Left IJ CVC 04/23 Corcoran 04/23 PICC line 05/02 DRIPS Levophed on & off Versed, Diprivan , Fentanyl NUTRITION Jevity 30 mL/hour PUD ppx: Protonix VTE ppx: Lovenox Goals of care discussed with the family for more than 27 minutes: Full code status Critical care time including chart review, discussing with the patient's family excluding procedures, including monitoring during cpap trial: 82 minutes Case discussed with Dr. Vance. Plan discussed with: Son My Orders My Orders Orders - HERMILO MENDEZ RESIDENT Procedure Category Date Status Time Chest Xray 1 View XY 05/02/24 Resulted 04:00 Abg W/ Co-Ox RT 05/02/24 Logged 04:00 Comprehensive LAB 05/03/24 Verified Metabolic Panel 04:00 Magnesium LAB 05/03/24 Verified 04:00 Chest Xray 1 View XY 05/03/24 Logged 04:00 Abg W/ Co-Ox RT 05/03/24 Logged 04:00 Dietary Evaluation Review Comments: for higher protein content and better controlled serum glucose, recommend Glucerna 40 ml/hr, (58g Pro, 1152 kcal), supplement with amino acid @41 ml/hr, the total nutrient support will be 100g pro, and 1662 kcal providing 81% of pro and 122% energy needs Expected Outcomes/Goals: off went, healing wounds and gradual wt loss. Date of Service: May 02, 2024 Billing Provider: ANUJ VANCE MD Common Visit Codes: [id number] CARE 30-74 MIN, [id number] CARE-EACH +30MIN Date of Service: May 02, 2024 Billing Provider: ANUJ VANCE MD Common Visit Codes: [id number] CARE 30-74 MIN, [id number] CARE-EACH +30MIN HERMILO MENDEZ May 02, 2024 18:22 ANUJ VANCE MD May 05, 2024 12:59
[2024-05-02 20:02] LABS: Chloride 104 mmol/L (98-107); Sodium 142 mmol/L (136-145)
[2024-05-02 20:03] LABS: Anion Gap 7 (5-15); Calcium 9.3 mg/dL (8.7-10.4); Carbon Dioxide 31 mmol/L (20-31)
[2024-05-02 20:08] LABS: BUN/Creatinine Ratio 26.9 (10.0-20.0); Blood Urea Nitrogen 21 mg/dL (9-23); Glucose 100 mg/dL (74-106)
[2024-05-02 20:09] LABS: Magnesium 1.8 mg/dL (1.6-2.6)
[2024-05-02 20:12] LABS: Potassium 3.3 mmol/L (3.5-5.1)
[2024-05-02] MEDS: MAGNESIUM SULFATE 1GM/100ML 100 ML IV SCH (21:48)
[2024-05-02] MEDS: POTASSIUM CHL 20MEQ/100ML 100 ML IV SCH (21:50)
[2024-05-02] MEDS: SODIUM CHLOR 0.9% PF (SALINE LOCK) 10ML VIAL/SYR IV SCH (21:58)
[2024-05-03] VITALS (119 sets, daily range): BP systolic 99–149; BP diastolic 44–91; PULSE 45–80; RESP 15–32; TEMP 97.7–99.9; O2SAT 87–100
[2024-05-03 04:10] LABS: Basophils # (auto) 0 10 ^3/uL (0-0.2); Basophils % (auto) 0.4 % (0.0-2.0); Eosinophils # (auto) 0 10 ^3/uL (0-0.8); Eosinophils % (auto) 0.1 % (0.0-7.0); Hemoglobin 12.1 g/dL (12.2-16.2); Lymphocytes # (auto) 0.7 10 ^3/uL (0.4-5.4); Lymphocytes % (auto) 8.2 % (10.0-50.0); Mean Corpuscular Hemoglobin 29.9 pg (28.0-32.0); Mean Corpuscular Hgb Conc. 32.8 g/dL (32.0-36.0); Mean Corpuscular Volume 90.9 fL (80.0-100.0); Monocytes # (auto) 0.3 10 ^3/uL (0-1.3); Monocytes % (auto) 3.3 % (0.0-12.0); Neutrophils # (auto) 7.3 10 ^3/uL (1.6-8.6); Platelet Count (auto) 167 10^3/uL (140-450); Red Blood Cells 4.07 10^6/uL (4.0-5.20); Red Cell Distribution Width 15.8 % (11.8-14.3); White Blood Cell 8.3 10^3/uL (4.4-10.8)
[2024-05-03 04:28] LABS: Alanine Aminotransferase 30 U/L (7-40); Albumin 3.6 g/dL (3.2-4.8); Alkaline Phosphatase 71 U/L (46-116); Anion Gap 9 (5-15); Aspartate Aminotransferase 17 U/L (13-40); BUN/Creatinine Ratio 30.3 (10.0-20.0); Bilirubin, Total 0.4 mg/dL (0.2-1.0); Blood Urea Nitrogen 20 mg/dL (9-23); Calcium 9.1 mg/dL (8.7-10.4); Carbon Dioxide 28 mmol/L (20-31); Chloride 104 mmol/L (98-107); Magnesium 2.5 mg/dL (1.6-2.6); Sodium 141 mmol/L (136-145); Total Protein 6.1 g/dL (5.7-8.2)
[2024-05-03 04:30] LABS: Glucose 143 mg/dL (74-106)
--- NOTE | 2024-05-03 05:32 | DVH ---
EXAM: XR Chest, 1 View CLINICAL INDICATION: FOLLOW UP TECHNIQUE: Frontal view of the chest. COMPARISON: XY CHEST XRAY 1 VIEW on DOS: 05/02/24, XY CHEST XRAY 1 VIEW on DOS: 05/01/24, XY CHEST XRAY 1 VIEW on DOS: 04/30/24, XY CHEST PORTABLE on DOS: 04/29/24, XY CHEST PORTABLE on DOS: 04/28/24 FINDINGS: LUNGS AND PLEURAL SPACES: See below. HEART: Cardiomegaly with mild congestion. MEDIASTINUM: Unremarkable. Normal mediastinal contour. BONES/JOINTS: Unremarkable. No acute fracture. TUBES, LINES AND DEVICES: The endotracheal tube (ETT) is in satisfactory position. Left internal j ugular central venous catheter tip in the superior vena cava. Enteric tube tip in the stomach. OTHER FINDINGS: . None. . . .. IMPRESSION: Cardiomegaly with mild congestion.
[2024-05-03] MEDS: FUROSEMIDE 20 MG/2 ML VIAL IV ONE ×2 (08:10→11:01)
--- NOTE | 2024-05-03 08:59 | MEDREC ---
[facility] Intervention Section I [facility] Intervention: Review courses of therapy (PATIENT IS AFEBRILE, WBC IS WNL. HER CHEST X-RAY SHOWED CONGESTION. ALL CULTURES SHOWED NO GROWTH. SHE HAS BEEN ON ZOSYN FOR 10 DAYS AND VANCOMYCIN FOR 5 DAYS. PLEASE CONSIDER DE-ESCALATE OR DISCONTINUE ANTIBIOTICS IF CLINICALLY APPROPRIATE) MARCELO CHA May 03, 2024 08:59
[2024-05-03 11:00] LABS: Base Excess 4.9 mmol/L (-2.0-3.0)
--- NOTE | 2024-05-03 12:33 | DVH ---
EXAM: XY CHEST PORTABLE HISTORY: ET TUBE PLACEMENT VERIFICATION COMPARISON: XY CHEST PORTABLE on DOS: 05/03/24, XY CHEST XRAY 1 VIEW on DOS: 05/02/24, XY CHEST XRAY 1 EW on DOS: 05/01/24, XY CHEST XRAY 1 VIEW on DOS: 04/30/24, XY CHEST PORTABLE on DOS: 04/29/24 TECHNIQUE: Portable AP view of the chest was performed. FINDINGS: Endotracheal tube is identified with its tip about 4.7 cm above the jazmyne. OG tube is identified wit h its tip in the stomach or bowel 8 cm distal to the GE junction. Left IJ central line and left upper extremity PICC line are re-identified. No pneumothorax. There are interstitial opacities, greater c entrally, improved since the previous chest x-ray. Mild right basilar atelectasis or pneumonia, stabl e. The heart is enlarged. IMPRESSION: 1. Mechanical ventilation with tubes and lines as above. 2. Cardiomegaly and interstitial prominence which may be due to mild CHF or reactive airways disease, improved versus chest x-ray performed earlier today. 3. Stable right basilar mild atelectasis or pneumonia.
[2024-05-03] MEDS: MIDAZOLAM HCL 2MG/2ML 2ml VIAL (1mg/ml) IV ONE (17:09)
--- NOTE | 2024-05-03 17:44 | DVHPNRES ---
Progress Note Date Seen: May 03, 2024 Resident Creating Document: HERMILO MENDEZ RESIDENT Medical Necessity Reason Pt with a Central, PICC or Fol: Yes The following are medically ne: Central Line, Corcoran Catheter Reason for corcoran catheter: Strict I&O Subjective Review of Systems DEISI MCGILL is a 53-year-old female with a PMH of COPD on home oxygen 3L presented to the ED with the chief complaints of shortness of breath. Patient seen and examined at the bedside. Unable to obtain ROS due to patient's clinical status. failed CPAP trial AM & PM today due to increased work of breathing, so back on sedation. Continuously monitoring. CPAP trial tomorrow. Patient reports: No new complaints Changes from previous H/P or p: No Changes Objective vital signs Vital Sign Date Time Temp Pulse Resp B/P (MAP) Pulse Ox O2 Delivery O2 Flow Rate FiO2 05/03/24 16:33 99.7 75 27 115/70 (85) 93 211.5 05/03/24 16:23 40 05/03/24 16:00 Mechanical Ventilator+ Total Intake and Output 05/02/24 05/02/24 05/03/24 15:00 23:00 07:00 Intake Total 528.058 ml 540.075 ml 965.570 ml Output Total 2100 ml 750 ml Balance 528.058 ml -1559.925 ml 215.570 ml medications Current Medications Medications Dose Ordered Sig/Vidhya Route Start Time Stop Time Status Last Admin Dose Admin Midazolam HCl 50 ml @ 1 mls/hr Q24H IV 04/23/24 11:00 05/01/24 03:46 3 MLS/HR Norepinephrine Bitartrate 250 ml @ 3.75 mls/hr Q24H IV 04/23/24 13:30 05/01/24 23:07 3.75 MLS/HR Enoxaparin Sodium 40 mg DAILY SC 04/24/24 10:00 05/03/24 09:20 40 MG Acetaminophen 650 mg Q6HP PRN PO 04/23/24 19:45 Pantoprazole Sodium 40 mg DAILY IV 04/25/24 10:00 05/03/24 09:20 40 MG Fentanyl Citrate 250 ml @ 2.5 mls/hr Q24H IV 04/24/24 10:45 05/02/24 18:42 22.5 MLS/HR Methylprednisolone Sodium Succinate 40 mg BID IV 04/24/24 22:00 05/03/24 09:15 40 MG Enteral Nutritional Formula 1,000 ml 30ML/HR GT 04/24/24 14:45 05/01/24 19:30 1,000 ML Docusate Sodium 100 mg BID GT 04/24/24 22:00 05/03/24 09:19 100 MG Albuterol 2.5 mg Q4HR NEB 04/24/24 22:00 05/03/24 15:08 2.5 MG Ipratropium [place] 0.5 mg Q4HR NEB 04/24/24 22:00 05/03/24 15:08 0.5 MG Metoclopramide HCl 5 mg Q8HPRN PRN IV 04/26/24 15:45 Budesonide 0.5 mg Q12HR NEB 04/27/24 22:00 05/03/24 06:52 0.5 MG Dexmedetomidine HCl 400 mcg/ Dextrose 100 ml @ 6.185 mls/ hr [id number] IV 04/27/24 21:15 05/03/24 12:22 15.463 MLS/HR Piperacillin Sod/ Tazobactam Sod 100 ml @ 25 mls/hr Q8H IV 04/28/24 08:00 05/03/24 15:19 25 MLS/HR Vancomycin HCl 0 ml @ 0 mls/hr UD IV 04/29/24 14:30 Vancomycin HCl 250 ml @ 250 mls/hr Q12H IV 05/01/24 23:00 05/03/24 11:01 250 MLS/HR Sodium Chloride 10 ml QSHIFT@10,22 IV 05/02/24 22:00 05/03/24 09:21 10 ML Examination Pt is lying on bed General Appearance:Currently sedated, intubated on mechanical ventilation HEENT: Atraumatic, Mucous membranes moist/pink Respiratory: Normal air movement on Mechanical ventilation Cardiovascular: Regular rate, Normal S1, Normal S2 Abdominal: Active bowel sounds, Soft, no distention, no tenderness Extremities: No edema, redness, warmth improved since admission Skin: No Significant rash Neuro: pupils are reactive, sedated Psych/Mental Status: Mental status NL, Mood NL Nurse was there as sharperone during examination laboratory and microbiology Laboratory Tests 05/03/24 03:34 Test 05/03/24 03:34 Range/Units Serum Glucose 143 H 74-106 mg/dL Microbiology Date/Time Source Procedure Growth Status 04/24/24 12:01 Voided Urine Urine Culture - Final Complete 04/23/24 23:30 Nose MRSA Screen - Final Complete 04/23/24 11:10 Sputum Gram Stain - Final Complete 04/23/24 11:10 Sputum Respiratory Culture - Final Complete 04/23/24 08:40 Blood Blood Culture - Final NO GROWTH AFTER 5 DAYS OF INCUBATION. Complete Labs and/or images reviewed: Labs reviewed by me, Image(s) reviewed by me Problem List/Assessment/Plan Problem List/Assessment/Plan NEUROLOGY # Acute metabolic/toxic encephalopathy likely due to hypercarbia CARDIOLOGY # ? Acute on Chronic diastolic CHF , - Echocardiogram EF is estimated at 55% - BNP WNL # Shock likely sepsis - Levophed dc 04/28, Versed, Diprivan , Fentanyl off 04/29 - currently on vanc and Zosyn RESPIRATORY # Acute on chronic hypoxic/hypercapnic respiratory failure s/p intubation # COPD exacerbation # ? Septic shock - ICU status - intubated, sedated, on mechanical ventilation - RR 22, VT 450, FiO2 40%, peep 5 - Versed, Diprivan , Fentanyl on going - Levophed on & off - currently on vanc and Zosyn - Monitor lab - Staretd methylpred 40 mg GI/LIVER # morbid obesity with a BMI 47.1 - nutritional consult /KIDNEY/METABOLIC MSK # cellulitis bilateral lower extremity -on Zosyn # Osteoarthritis # ruled out DVT - ordered venous scan - negative scan [facility] # Vit D deficiency - Repleting SKIN # Tobacco abuse disorder # Tobacco dependence LINES Intubation 04/23 Left IJ CVC 04/23 Corcoran 04/23 PICC line 05/02 DRIPS Levophed on & off Versed, Diprivan , Fentanyl NUTRITION Jevity 30 mL/hour PUD ppx: Protonix VTE ppx: Lovenox Patient is on CPAP trial for past 2-3 days continuously but unable to extubate due to rapid, shallow breathing and low volumes. Lungs are congested due to CHF, giving Lasix 20 mg as needed depend upon the patient's condition. Goals of care discussed with the family for more than 27 minutes: Full code status Critical care time including chart review, discussing with the patient's family excluding procedures: 57 minutes Case discussed with . CPAP trial tomorrow Plan discussed with: Son My Orders My Orders Orders - HERMILO MENDEZ Procedure Category Date Status Time Abg W/ Co-Ox RT 05/03/24 Logged 04:00 Dietary Evaluation Review Comments: for higher protein content and better controlled serum glucose, recommend Glucerna 40 ml/hr, (58g Pro, 1152 kcal), supplement with amino acid @41 ml/hr, the total nutrient support will be 100g pro, and 1662 kcal providing 81% of pro and 122% energy needs Expected Outcomes/Goals: off went, healing wounds and gradual wt loss. HERMILO MENDEZ RESIDENT May 03, 2024 17:44
--- NOTE | 2024-05-03 18:49 | DVHTSRES ---
Transfer Summary Transfer Summary Resident Creating Document: HERMILO MENDEZ Date of Admission Apr 23, 2024 at 19:41 Date of Transfer: May 03, 2024 Transfer Diagnosis COPD exacerbation Brief Hx & Hospital Course: DEISI MCGILL is a 53-year-old female with a PMH of COPD on home oxygen 3L presented to the ED with the chief complaints of shortness of breath. Patient is currently sedated, intubated and on mechanical ventilation so history obtained from medical records which showed patient has been having worsening of shortness of breath for past 1-2 days. Patient was using nebulizer and inhaler but did not show any relief, which prompted her to visit ED, her saturation was 70s on arrival and placed on BiPAP, progressively become more confused so to protect airway patient intubated. Some history obtained from the son on phone call, stated she does have history of CHF, 6 months back cardiac arrest status post resuscitation with some hypoxic brain damage, intubated 2-3 times in past And she is active smoker smokes 1.5 pack cigarettes per day for long time. Patient seen and examined at the bedside. Unable to obtain ROS due to patient's clinical status. Currently sedated, intubated on mechanical ventilation. Continuously monitoring. Patient diagnosed with acute metabolic or toxic encephalopathy likely due to hypercapnia and septic shock likely from COPD exacerbation and possible p neumonia. Due to acute on chronic hypoxic or hypercapnic respiratory failure patient required intubation and required pressor support with Levophed. Patient was on Versed, Diprivan, fentanyl. Due to COPD exacerbation with sepsis patient was on methylprednisolone, antibiotics Zosyn and doxy. Patient have questionable diastolic heart failure with possible exacerbation, echo showed diastolic heart failure. Patient is giving Lasix 20 mg IV as required on daily basis.. Patient was continuously CPAP in mornings for 3 days. Transfer to: Resident HERMILO MENDEZ RESIDENT May 03, 2024 18:49
[2024-05-03 20:15] LABS: Alanine Aminotransferase 28 U/L (7-40); Albumin 4.2 g/dL (3.2-4.8); Alkaline Phosphatase 83 U/L (46-116); Anion Gap 10 (5-15); Aspartate Aminotransferase 14 U/L (13-40); BUN/Creatinine Ratio 24.4 (10.0-20.0); Bilirubin, Total 0.6 mg/dL (0.2-1.0); Blood Urea Nitrogen 21 mg/dL (9-23); Calcium 9.8 mg/dL (8.7-10.4); Carbon Dioxide 31 mmol/L (20-31); Chloride 100 mmol/L (98-107); Magnesium 2.1 mg/dL (1.6-2.6); Sodium 141 mmol/L (136-145)
[2024-05-03 20:18] LABS: Glucose 108 mg/dL (74-106); Potassium 3.2 mmol/L (3.5-5.1)
[2024-05-03] MEDS: PROPOFOL 100 ML IV SCH (20:44)
[2024-05-03] MEDS: POTASSIUM CHL 20MEQ/100ML 100 ML IV SCH (21:47)
[2024-05-03] MEDS: ALPRAZolam 0.25 MG TAB PO SCH (22:10)
[2024-05-04] VITALS (119 sets, daily range): BP systolic 64–191; BP diastolic 41–148; PULSE 46–111; RESP 12–32; TEMP 96.3–99.7; O2SAT 90–100
[2024-05-04 04:27] LABS: Basophils # (auto) 0 10 ^3/uL (0-0.2); Basophils % (auto) 0.3 % (0.0-2.0); Eosinophils # (auto) 0 10 ^3/uL (0-0.8); Eosinophils % (auto) 0.1 % (0.0-7.0); Hematocrit 39.1 % (36.0-46.0); Lymphocytes # (auto) 0.9 10 ^3/uL (0.4-5.4); Lymphocytes % (auto) 9.9 % (10.0-50.0); Mean Corpuscular Hemoglobin 30.3 pg (28.0-32.0); Mean Corpuscular Hgb Conc. 33.4 g/dL (32.0-36.0); Mean Corpuscular Volume 90.8 fL (80.0-100.0); Monocytes # (auto) 0.3 10 ^3/uL (0-1.3); Monocytes % (auto) 3.2 % (0.0-12.0); Neutrophils # (auto) 7.9 10 ^3/uL (1.6-8.6); Neutrophils % (auto) 86.5 % (37.0-80.0); Platelet Count (auto) 168 10^3/uL (140-450); White Blood Cell 9.1 10^3/uL (4.4-10.8)
[2024-05-04 04:35] LABS: Alanine Aminotransferase 28 U/L (7-40); Albumin 3.9 g/dL (3.2-4.8); Alkaline Phosphatase 81 U/L (46-116); Anion Gap 10 (5-15); Aspartate Aminotransferase 16 U/L (13-40); BUN/Creatinine Ratio 26.5 (10.0-20.0); Blood Urea Nitrogen 22 mg/dL (9-23); Calcium 9.8 mg/dL (8.7-10.4); Carbon Dioxide 30 mmol/L (20-31); Chloride 100 mmol/L (98-107); Potassium 3.7 mmol/L (3.5-5.1); Sodium 140 mmol/L (136-145)
[2024-05-04 04:36] LABS: Bilirubin, Total 0.5 mg/dL (0.2-1.0); Total Protein 6.6 g/dL (5.7-8.2)
[2024-05-04 04:39] LABS: Glucose 152 mg/dL (74-106)
--- NOTE | 2024-05-04 05:20 | DVH ---
CHEST RADIOGRAPH Indication: pna Technique: Single frontal view of the chest was obtained Comparison: XY CHEST PORTABLE on DOS: 05/03/24, XY CHEST PORTABLE on DOS: 05/03/24, XY CHEST XRAY 1 VIEW on DOS: 05/02/24 IMPRESSION: Heart appears prominent size. Patchy subsegmental atelectasis of the left upper lung. Support lines a nd tubes appear unchanged in position. No discrete pneumothorax.
--- NOTE | 2024-05-04 06:35 | DVH ---
HISTORY: PICC PLACEMENT Technique: Ultrasound images were obtained for PICC line placement. FINDINGS/IMPRESSION: Refer to operative report for further evaluation.
[2024-05-04 06:52] LABS: Base Excess 1.3 mmol/L (-2.0-3.0)
--- NOTE | 2024-05-04 08:16 | ECG ---
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
[2024-05-04] MEDS: METOCLOPRAMIDE HCL 5MG/ml INJ 2ml VIAL IV PRN (10:37)
[2024-05-04] MEDS: VANCOMYCIN 750MG KIT 100 ML IV SCH (11:25)
--- NOTE | 2024-05-04 13:00 | DVHPN2 ---
Subjective Intubated and sedated but awake, and following commands Reviewed: Care Plan, H&P, Labs, Medications, Previous Orders, Radiology, Other Changes from previous H/P or p: Changes Objective Vitals Vital Signs Date Time Temp Pulse Resp B/P (MAP) Pulse Ox O2 Delivery O2 Flow Rate FiO2 05/04/24 11:45 147/99 05/04/24 11:42 109 28 94 45 05/04/24 07:03 98.4 209.1 05/04/24 06:00 Mechanical Ventilator+ Intake/Output Intake and Output 05/04/24 07:00 Intake Total 8640.933 ml Output Total 3325 ml Balance 5315.933 ml Intake Oral 60 ml IV Total 8468.933 ml Tube Feeding 112 ml Output Urine Total 3325 ml General Appearance: Alert, Cooperative, Other (Intubated, and sedated) Lungs: Other (MV sounds) Cardiovascular: Regular rate, Normal S1, Normal S2 Abdomen: Normal bowel sounds, Soft, No tenderness Genitourinary: Other (Georges's) Neuro: Cranial nerves 3-12 NL, Other (Follows commands) Medications Current Medications Medications Dose Ordered Sig/Vidhya Route Start Time Stop Time Status Last Admin Dose Admin Midazolam HCl 50 ml @ 1 mls/hr Q24H IV 04/23/24 11:00 05/01/24 03:46 3 MLS/HR Norepinephrine Bitartrate 250 ml @ 3.75 mls/hr Q24H IV 04/23/24 13:30 05/01/24 23:07 3.75 MLS/HR Enoxaparin Sodium 40 mg DAILY SC 04/24/24 10:00 05/04/24 10:04 40 MG Acetaminophen 650 mg Q6HP PRN PO 04/23/24 19:45 Pantoprazole Sodium 40 mg DAILY IV 04/25/24 10:00 05/04/24 10:08 40 MG Fentanyl Citrate 250 ml @ 2.5 mls/hr Q24H IV 04/24/24 10:45 05/04/24 11:37 5 MLS/HR Methylprednisolone Sodium Succinate 40 mg BID IV 04/24/24 22:00 05/04/24 10:08 40 MG Enteral Nutritional Formula 1,000 ml 30ML/HR GT 04/24/24 14:45 05/01/24 19:30 1,000 ML Docusate Sodium 100 mg BID GT 04/24/24 22:00 05/04/24 10:16 100 MG Albuterol 2.5 mg Q4HR NEB 04/24/24 22:00 05/04/24 10:11 2.5 MG Ipratropium [place] 0.5 mg Q4HR NEB 04/24/24 22:00 05/04/24 10:11 0.5 MG Metoclopramide HCl 5 mg Q8HPRN PRN IV 04/26/24 15:45 05/04/24 10:37 5 MG Budesonide 0.5 mg Q12HR NEB 04/27/24 22:00 05/04/24 10:10 0.5 MG Dexmedetomidine HCl 400 mcg/ Dextrose 100 ml @ 6.185 mls/ hr [id number] IV 04/27/24 21:15 05/03/24 22:02 9.278 MLS/HR Piperacillin Sod/ Tazobactam Sod 100 ml @ 25 mls/hr Q8H IV 04/28/24 08:00 05/04/24 08:54 25 MLS/HR Vancomycin HCl 0 ml @ 0 mls/hr UD IV 04/29/24 14:30 Sodium Chloride 10 ml QSHIFT@10,22 IV 05/02/24 22:00 05/04/24 10:03 10 ML Propofol 100 ml @ 3.468 mls/ hr Q24H IV 05/03/24 16:45 05/04/24 11:20 10.404 MLS/HR Alprazolam 0.25 mg BID PO 05/03/24 22:00 05/04/24 10:16 0.25 MG Vancomycin HCl 100 ml @ 100 mls/hr Q12H IV 05/04/24 11:00 05/04/24 11:25 100 MLS/HR Laboratory Results Laboratory Tests 05/04/24 03:26 Chemistry Test 05/03/24 19:43 05/04/24 03:26 Albumin 4.2 g/dL (3.2-4.8) 3.9 g/dL (3.2-4.8) Calcium Level 9.8 mg/dL (8.7-10.4) 9.8 mg/dL (8.7-10.4) Magnesium Level 2.1 mg/dL (1.6-2.6) 2.0 mg/dL (1.6-2.6) Total Protein 7.0 g/dL (5.7-8.2) 6.6 g/dL (5.7-8.2) LFT Test 05/03/24 19:43 05/04/24 03:26 Alanine Aminotransferase (ALT) 28 U/L (7-40) 28 U/L (7-40) Alkaline Phosphatase 83 U/L (46-116) 81 U/L (46-116) Aspartate Amino Transferase (AST) 14 U/L (13-40) 16 U/L (13-40) Total Bilirubin 0.6 mg/dL (0.2-1.0) 0.5 mg/dL (0.2-1.0) Urinalysis Test 04/23/24 11:13 Urine Color Colorless (Yellow) Urine Clarity Clear (Clear) Urine pH 6.0 (5.0-9.0) Urine Specific [place] 1.007 (1.001-1.035) Urine Protein Negative (Negative) Urine Ketones Negative (Negative) Urine Blood Negative /uL (Negative) Urine Nitrite Negative (Negative) Urine Bilirubin Negative (Negative) Urine Urobilinogen Normal mg/dL (Negative) Urine Leukocyte Esterase Negative /uL (Negative) Urine RBC 1 /hpf (0 - 4) Urine Microscopic WBC 2 /HPF (0-5) Urine Squamous Epithelial Cells None seen /hpf (<5) Urine Bacteria None seen /hpf (None Seen) Urine Glucose Normal mg/dL (Normal) Blood Gas Results Test 05/04/24 06:40 Arterial Blood pH 7.450 (7.350-7.450) FiO2 % 60.0 Microbiology Microbiology Date/Time Source Procedure Growth Status 04/24/24 12:01 Voided Urine Urine Culture - Final Complete 04/23/24 23:30 Nose MRSA Screen - Final Complete 04/23/24 11:10 Sputum Gram Stain - Final Complete 04/23/24 11:10 Sputum Respiratory Culture - Final Complete 04/23/24 08:40 Blood Blood Culture - Final NO GROWTH AFTER 5 DAYS OF INCUBATION. Complete Labs and/or images reviewed: Labs reviewed by me, Image(s) reviewed by me Assessment/Plan Assessment/Plan Covering Dr. Marcial: #Acute metabolic/toxic encephalopathy in the setting of septic shock due to suspected pneumonia #Acute hypoxic/hypercapnic respiratory failure due to COPD exacerbation secondary to suspected pneumonia #Septic shock due to suspected pneumonia #Acute diastolic heart failure #Suspected JOSE ROBERTO; most likely due to VMN in the setting of above #Morbid obesity Continue IV vasopressors as indicated Pulmonology is following Continue IV antibiotics Continue oxygen therapy via MV as indicated Monitor electrolytes closely and replace/correct as needed Avoid nephrotoxic agents Reviewed available cultures, labs, ABGs, and imaging studies including CXRs Continue close monitoring Goals of care discussed for 20 minutes; full code. 99 minutes of critical care time. Late Entry. This medical document was created using an electronic medical record system with computerized dictation system. Although this document has been carefully reviewed, there might still be some phonetic and typographical errors. These areas are purely typographical due to imperfections of the software programs, and do not reflect any compromise in the patient's medical care. Plan discussed with: Patient, Other (Nurse) Date of Service: May 04, 2024 Billing Provider: CATY SILVA MD Common Visit Codes: 44406-SNWVSRFT CARE 30-74 MIN (99 minutes), 28348-[id number] CARE-EACH +30MIN Secondary Visit Codes: 19403-PRQUALYV CARE PLAN 30 MINUTES (20 minutes) CATY SILVA MD May 04, 2024 13:00
--- NOTE | 2024-05-04 23:29 | DVHPN2 ---
Progress Note - Dictate Date Seen: May 04, 2024 Medical Necessity Reason Pt with a Central, PICC or Fol: Yes The following are medically ne: Central Line, Corcoran Catheter Reason for corcoran catheter: Strict I&O Subjective Patient seen and examined at bedside. Sedated, intubated on mechanical ventilator. Overnight events reviewed. vital signs Vital Sign Date Time Temp Pulse Resp B/P (MAP) Pulse Ox O2 Delivery O2 Flow Rate FiO2 05/04/24 22:17 97.9 70 26 104/59 (74) 96 208.2 05/04/24 22:00 Mechanical Ventilator+ 45 45 Total Intake and Output 05/03/24 05/03/24 05/04/24 15:00 23:00 07:00 Intake Total 7469.734 ml 449.821 ml 721.378 ml Output Total 975 ml 1800 ml 550 ml Balance 6494.734 ml -1350.179 ml 171.378 ml medications Current Medications Medications Dose Ordered Sig/Vidhya Route Start Time Stop Time Status Last Admin Dose Admin Midazolam HCl 50 ml @ 1 mls/hr Q24H IV 04/23/24 11:00 05/01/24 03:46 3 MLS/HR Norepinephrine Bitartrate 250 ml @ 3.75 mls/hr Q24H IV 04/23/24 13:30 05/01/24 23:07 3.75 MLS/HR Enoxaparin Sodium 40 mg DAILY SC 04/24/24 10:00 05/04/24 10:04 40 MG Acetaminophen 650 mg Q6HP PRN PO 04/23/24 19:45 Pantoprazole Sodium 40 mg DAILY IV 04/25/24 10:00 05/04/24 10:08 40 MG Fentanyl Citrate 250 ml @ 2.5 mls/hr Q24H IV 04/24/24 10:45 05/04/24 11:37 5 MLS/HR Methylprednisolone Sodium Succinate 40 mg BID IV 04/24/24 22:00 05/04/24 21:22 40 MG Enteral Nutritional Formula 1,000 ml 30ML/HR GT 04/24/24 14:45 05/01/24 19:30 1,000 ML Docusate Sodium 100 mg BID GT 04/24/24 22:00 05/04/24 21:21 100 MG Albuterol 2.5 mg Q4HR NEB 04/24/24 22:00 2/8/25 21:25 2.5 MG Ipratropium [place] 0.5 mg Q4HR NEB 04/24/24 22:00 05/04/24 21:26 0.5 MG Metoclopramide HCl 5 mg Q8HPRN PRN IV 04/26/24 15:45 05/04/24 10:37 5 MG Budesonide 0.5 mg Q12HR NEB 04/27/24 22:00 05/04/24 21:25 0.5 MG Piperacillin Sod/ Tazobactam Sod 100 ml @ 25 mls/hr Q8H IV 04/28/24 08:00 05/04/24 16:36 25 MLS/HR Vancomycin HCl 0 ml @ 0 mls/hr UD IV 04/29/24 14:30 Sodium Chloride 10 ml QSHIFT@10,22 IV 05/02/24 22:00 05/04/24 21:22 10 ML Propofol 100 ml @ 3.468 mls/ hr Q24H IV 05/03/24 16:45 05/04/24 21:21 13.872 MLS/HR Alprazolam 0.25 mg BID PO 05/03/24 22:00 05/04/24 21:22 0.25 MG Vancomycin HCl 100 ml @ 100 mls/hr Q12H IV 05/04/24 11:00 05/04/24 22:52 100 MLS/HR Dexmedetomidine HCl 400 mcg/ Dextrose 100 ml @ 5.565 mls/ hr [id number] IV 05/04/24 22:45 UNV objective Gen.: Patient lying in bed in medical ICU. Sedated, intubated on mechanical ventilator. Head: Normocephalic, atraumatic. Eyes: PERRLA. Ears: Normal external anatomy. Throat: Endotracheal tube and orogastric tube in place. Neck: Supple, trachea midline. Chest: Transmitted breath sounds bilaterally. Decreased air entry bilaterally. No wheezing. Bibasilar crackles. Cardiovascular: Positive S1, positive S2. Regular rate and rhythm. Abdomen: Positive bowel sounds in all 4 quadrants. Soft, nontender, nondistended. : Corcoran in place. Normal external genitalia. Rectal: Deferred. Skin: Warm, dry. Intact. Extremities: 2+ radial pulses bilaterally. No lower extremity edema. Neuro: Sedated. laboratory and microbiology Laboratory Tests 05/04/24 03:26 Test 05/04/24 03:26 Range/Units Serum Glucose 152 H 74-106 mg/dL Assessment/Plan Impression: Acute hypoxic/hypercapnic respiratory failure On mechanical ventilator COPD exacerbation Morbid obesity Events: Remains on vent support On AC mode; RR 22, VT 480, PEEP 5, FiO2 of 50% Sedated on Propofol Fentanyl drip for analgesia ABG reviewed, compensated. Continue bronchodilators Continue IV steroids Continue antibiotics. Tube feeds for nutritional support Taper sedation as tolerated SBT/DERICK Labs and imaging reviewed. Rest of plan as noted below. Plan: s/p intubation on mechanical ventilator. CXR image and report reviewed. Devices in place. Multifocal airspace disease. No pneumothorax. No pleural effusion. On AC mode; RR 22, VT 480, PEEP 5, FiO2 of 50% Titrate FIO2 to keep O2 saturation above 90%. VAP bundle. Daily ABG and CXR while intubated Sedate for ventilator synchrony - On Propofol Precedex OK for agitation if necessary Continue bronchodilators/Pulmicort. Continue steroids Continue antibiotics. Pressors if necessary for hemodynamic support Titrate to keep mean arterial pressure greater than 65 mmHg. Monitor renal function Monitor electrolytes. Supplement as necessary. Monitor ins and outs. Maintain euvolemia. Tube feeds for nutritional support Taper sedation as tolerated SBT/DERICK GI prophylaxis. DVT prophylaxis. Prognosis: Poor given patient's multiple co-morbidities. Condition: Critical Rest of plan per hospitalist and other consultants. A total of 35 minutes of critical care time was spent reviewing the patient record, examining the patient, making a diagnostic and therapeutic plan, discussing this plan with the medical personnel, following up on diagnostic studies and following the patient for clinical stability excluding any and all procedures. At least 50% of this time was spent in direct, [id number] contact. Thank you Dr. Arevalo, for allowing me to participate in this patient's care. Further recommendations will depend on the patient's clinical course. Please do not hesitate to contact me if you have any questions or concerns. This medical document was created using an electronic medical record system with [employer] system. Although these documentations are being carefully reviewed, there may still be some phonetic and typographical changes. The errors are purely typographical, due to imperfection on the software program, and do not reflect any compromise in the patient's medical care. Dietary Evaluation Review Comments: for higher protein content and better controlled serum glucose, recommend Glucerna 40 ml/hr, (58g Pro, 1152 kcal), supplement with amino acid @41 ml/hr, the total nutrient support will be 100g pro, and 1662 kcal providing 81% of pro and 122% energy needs Expected Outcomes/Goals: off went, healing wounds and gradual wt loss. Plan discussed with: Other (ROXANNA Olvera) Critical Care Time(min): 35 ROSENDO TARANGO MD May 04, 2024 23:29
[2024-05-05] VITALS (113 sets, daily range): BP systolic 87–152; BP diastolic 18–99; PULSE 48–84; RESP 13–29; TEMP 87.1–98.8; O2SAT 91–100
[2024-05-05 04:09] LABS: Basophils # (auto) 0 10 ^3/uL (0-0.2); Basophils % (auto) 0.2 % (0.0-2.0); Eosinophils # (auto) 0 10 ^3/uL (0-0.8); Eosinophils % (auto) 0.1 % (0.0-7.0); Hematocrit 38.7 % (36.0-46.0); Hemoglobin 12.8 g/dL (12.2-16.2); Lymphocytes # (auto) 0.9 10 ^3/uL (0.4-5.4); Mean Corpuscular Hemoglobin 29.8 pg (28.0-32.0); Mean Corpuscular Volume 90.3 fL (80.0-100.0); Monocytes # (auto) 0.3 10 ^3/uL (0-1.3); Monocytes % (auto) 2.7 % (0.0-12.0); Neutrophils # (auto) 8.2 10 ^3/uL (1.6-8.6); Platelet Count (auto) 162 10^3/uL (140-450); Red Blood Cells 4.29 10^6/uL (4.0-5.20); Red Cell Distribution Width 15.5 % (11.8-14.3); White Blood Cell 9.4 10^3/uL (4.4-10.8)
[2024-05-05 04:24] LABS: Alanine Aminotransferase 27 U/L (7-40); Albumin 4.1 g/dL (3.2-4.8); Alkaline Phosphatase 81 U/L (46-116); Anion Gap 8 (5-15); BUN/Creatinine Ratio 27.3 (10.0-20.0); Bilirubin, Total 0.5 mg/dL (0.2-1.0); Blood Urea Nitrogen 21 mg/dL (9-23); Calcium 9.6 mg/dL (8.7-10.4); Carbon Dioxide 30 mmol/L (20-31); Chloride 102 mmol/L (98-107); Potassium 3.6 mmol/L (3.5-5.1); Sodium 140 mmol/L (136-145)
[2024-05-05 04:25] LABS: Total Protein 6.7 g/dL (5.7-8.2)
[2024-05-05 04:33] LABS: Aspartate Aminotransferase 13 U/L (13-40); Glucose 132 mg/dL (74-106)
--- NOTE | 2024-05-05 05:44 | DVH ---
CHEST RADIOGRAPH Indication: Intubated. Technique: Single frontal view of the chest was obtained Comparison: XY CHEST XRAY 1 VIEW on DOS: 05/04/24, XY CHEST PORTABLE on DOS: 05/03/24, XY CHEST PORTABLE on DOS: 05/03/24 IMPRESSION: Heart is enlarged. Left lung base not clearly visualized. No sizable right pleural effusion. Mild pu lmonary vascular congestion. Support lines and tubes appear similar to prior examination.
[2024-05-05 06:21] LABS: Base Excess 4.4 mmol/L (-2.0-3.0)
[2024-05-05 14:59] LABS: Base Excess -0.1 mmol/L (-2.0-3.0)
--- NOTE | 2024-05-05 21:51 | DVHPN2 ---
Subjective Intubated and sedated but awake, and following commands Reviewed: Care Plan, H&P, Labs, Medications, Previous Orders, Radiology, Other Changes from previous H/P or p: No Changes Objective Vitals Vital Signs Date Time Temp Pulse Resp B/P (MAP) Pulse Ox O2 Delivery O2 Flow Rate FiO2 05/05/24 19:02 74 20 118/18 96 10.0 60 05/05/24 19:00 98.4 209.1 05/05/24 18:00 Cool Aerosol Intake/Output Intake and Output 05/05/24 07:00 Intake Total 1569.776 ml Output Total 1250 ml Balance 319.776 ml Intake Oral 110 ml IV Total 1198.776 ml Tube Feeding 261 ml Output Urine Total 1250 ml General Appearance: Alert, Cooperative, Other (Intubated, and sedated) Lungs: Other (MV sounds) Cardiovascular: Regular rate, Normal S1, Normal S2 Abdomen: Normal bowel sounds, Soft, No tenderness Genitourinary: Other (Georges's) Neuro: Cranial nerves 3-12 NL, Other (Follows commands) Medications Current Medications Medications Dose Ordered Sig/Vidhya Route Start Time Stop Time Status Last Admin Dose Admin Midazolam HCl 50 ml @ 1 mls/hr Q24H IV 04/23/24 11:00 05/01/24 03:46 3 MLS/HR Norepinephrine Bitartrate 250 ml @ 3.75 mls/hr Q24H IV 04/23/24 13:30 05/01/24 23:07 3.75 MLS/HR Acetaminophen 650 mg Q6HP PRN PO 04/23/24 19:45 Pantoprazole Sodium 40 mg DAILY IV 04/25/24 10:00 05/05/24 10:08 40 MG Methylprednisolone Sodium Succinate 40 mg BID IV 04/24/24 22:00 05/05/24 21:32 40 MG Enteral Nutritional Formula 1,000 ml 30ML/HR GT 04/24/24 14:45 05/01/24 19:30 1,000 ML Docusate Sodium 100 mg BID GT 04/24/24 22:00 05/05/24 10:08 100 MG Albuterol 2.5 mg Q4HR NEB 04/24/24 22:00 05/05/24 18:04 2.5 MG Ipratropium [place] 0.5 mg Q4HR NEB 04/24/24 22:00 2/9/25 18:04 0.5 MG Metoclopramide HCl 5 mg Q8HPRN PRN IV 04/26/24 15:45 05/04/24 10:37 5 MG Budesonide 0.5 mg Q12HR NEB 04/27/24 22:00 05/05/24 05:53 0.5 MG Piperacillin Sod/ Tazobactam Sod 100 ml @ 25 mls/hr Q8H IV 04/28/24 08:00 05/05/24 16:11 25 MLS/HR Vancomycin HCl 0 ml @ 0 mls/hr UD IV 04/29/24 14:30 Sodium Chloride 10 ml QSHIFT@10,22 IV 05/02/24 22:00 05/05/24 21:31 10 ML Propofol 100 ml @ 3.468 mls/ hr Q24H IV 05/03/24 16:45 05/05/24 10:15 10.404 MLS/HR Alprazolam 0.25 mg BID PO 05/03/24 22:00 05/05/24 10:08 0.25 MG Vancomycin HCl 100 ml @ 100 mls/hr Q12H IV 05/04/24 11:00 05/05/24 11:38 100 MLS/HR Dexmedetomidine HCl 400 mcg/ Dextrose 100 ml @ 5.565 mls/ hr [id number] IV 05/04/24 22:45 05/05/24 10:22 11.13 MLS/HR Laboratory Results Laboratory Tests 05/05/24 03:38 Chemistry Test 05/05/24 03:38 Albumin 4.1 g/dL (3.2-4.8) Calcium Level 9.6 mg/dL (8.7-10.4) Total Protein 6.7 g/dL (5.7-8.2) LFT Test 05/05/24 03:38 Alanine Aminotransferase (ALT) 27 U/L (7-40) Alkaline Phosphatase 81 U/L (46-116) Aspartate Amino Transferase (AST) 13 U/L (13-40) Total Bilirubin 0.5 mg/dL (0.2-1.0) Urinalysis Test 04/23/24 11:13 Urine Color Colorless (Yellow) Urine Clarity Clear (Clear) Urine pH 6.0 (5.0-9.0) Urine Specific [place] 1.007 (1.001-1.035) Urine Protein Negative (Negative) Urine Ketones Negative (Negative) Urine Blood Negative /uL (Negative) Urine Nitrite Negative (Negative) Urine Bilirubin Negative (Negative) Urine Urobilinogen Normal mg/dL (Negative) Urine Leukocyte Esterase Negative /uL (Negative) Urine RBC 1 /hpf (0 - 4) Urine Microscopic WBC 2 /HPF (0-5) Urine Squamous Epithelial Cells None seen /hpf (<5) Urine Bacteria None seen /hpf (None Seen) Urine Glucose Normal mg/dL (Normal) Blood Gas Results Test 05/05/24 06:13 05/05/24 14:50 Arterial Blood pH 7.454 (7.350-7.450) 7.389 (7.350-7.450) FiO2 % 45.0 45.0 Microbiology Microbiology Date/Time Source Procedure Growth Status 04/24/24 12:01 Voided Urine Urine Culture - Final Complete 04/23/24 23:30 Nose MRSA Screen - Final Complete 04/23/24 11:10 Sputum Gram Stain - Final Complete 04/23/24 11:10 Sputum Respiratory Culture - Final Complete 04/23/24 08:40 Blood Blood Culture - Final NO GROWTH AFTER 5 DAYS OF INCUBATION. Complete Labs and/or images reviewed: Labs reviewed by me, Image(s) reviewed by me Assessment/Plan Assessment/Plan Covering Dr. Marcial: #Acute metabolic/toxic encephalopathy in the setting of septic shock due to suspected pneumonia #Acute hypoxic/hypercapnic respiratory failure due to COPD exacerbation secondary to suspected pneumonia #Septic shock due to suspected pneumonia #Acute diastolic heart failure #Suspected JOSE ROBERTO; most likely due to VMN in the setting of above #Morbid obesity Continue IV vasopressors as indicated Pulmonology is following Continue IV antibiotics Continue oxygen therapy via MV as indicated Monitor electrolytes closely and replace/correct as needed Avoid nephrotoxic agents Reviewed available cultures, labs, ABGs, and imaging studies including CXRs Continue close monitoring 55 minutes of critical care time. Late Entry. This medical document was created using an electronic medical record system with computerized dictation system. Although this document has been carefully reviewed, there might still be some phonetic and typographical errors. These areas are purely typographical due to imperfections of the software programs, and do not reflect any compromise in the patient's medical care. Plan discussed with: Patient, Other (Nurse) My Orders Orders - CATY SILVA MD Procedure Category Date Status Time Code Status CODE 05/05/24 Transmitted 21:40 Date of Service: May 05, 2024 Billing Provider: CATY SILVA MD Common Visit Codes: [id number] CARE 30-74 MIN (55 minutes) CATY SILVA MD May 05, 2024 21:51
--- NOTE | 2024-05-05 22:33 | DVHPN2 ---
Progress Note - Dictate Date Seen: May 05, 2024 Medical Necessity Reason Pt with a Central, PICC or Fol: Yes The following are medically ne: Central Line, Corcoran Catheter Reason for corcoran catheter: Strict I&O Subjective Patient seen and examined at bedside. S/p extubation, on supplemental oxygen Overnight events reviewed. vital signs Vital Sign Date Time Temp Pulse Resp B/P (MAP) Pulse Ox O2 Delivery O2 Flow Rate FiO2 05/05/24 22:03 97 Nasal Cannula* 3 32 05/05/24 22:02 64 18 05/05/24 19:02 118/18 05/05/24 19:00 98.4 209.1 Total Intake and Output 05/04/24 05/04/24 05/05/24 15:00 23:00 07:00 Intake Total 453.793 ml 470.877 ml 645.106 ml Output Total 450 ml 800 ml Balance 453.793 ml 20.877 ml -154.894 ml medications Current Medications Medications Dose Ordered Sig/Vidhya Route Start Time Stop Time Status Last Admin Dose Admin Midazolam HCl 50 ml @ 1 mls/hr Q24H IV 04/23/24 11:00 05/01/24 03:46 3 MLS/HR Norepinephrine Bitartrate 250 ml @ 3.75 mls/hr Q24H IV 04/23/24 13:30 05/01/24 23:07 3.75 MLS/HR Acetaminophen 650 mg Q6HP PRN PO 04/23/24 19:45 Pantoprazole Sodium 40 mg DAILY IV 04/25/24 10:00 05/05/24 10:08 40 MG Methylprednisolone Sodium Succinate 40 mg BID IV 04/24/24 22:00 05/05/24 21:32 40 MG Enteral Nutritional Formula 1,000 ml 30ML/HR GT 04/24/24 14:45 05/01/24 19:30 1,000 ML Docusate Sodium 100 mg BID GT 04/24/24 22:00 05/05/24 10:08 100 MG Albuterol 2.5 mg Q4HR NEB 04/24/24 22:00 05/05/24 21:54 2.5 MG Ipratropium Plover 0.5 mg Q4HR NEB 04/24/24 22:00 05/05/24 21:54 0.5 MG Metoclopramide HCl 5 mg Q8HPRN PRN IV 04/26/24 15:45 05/04/24 10:37 5 MG Budesonide 0.5 mg Q12HR NEB 04/27/24 22:00 05/05/24 21:54 0.5 MG Piperacillin Sod/ Tazobactam Sod 100 ml @ 25 mls/hr Q8H IV 04/28/24 08:00 05/05/24 16:11 25 MLS/HR Vancomycin HCl 0 ml @ 0 mls/hr UD IV 04/29/24 14:30 Sodium Chloride 10 ml QSHIFT@10,22 IV 05/02/24 22:00 05/05/24 21:31 10 ML Propofol 100 ml @ 3.468 mls/ hr Q24H IV 05/03/24 16:45 05/05/24 10:15 10.404 MLS/HR Alprazolam 0.25 mg BID PO 05/03/24 22:00 05/05/24 10:08 0.25 MG Vancomycin HCl 100 ml @ 100 mls/hr Q12H IV 05/04/24 11:00 05/05/24 11:38 100 MLS/HR Dexmedetomidine HCl 400 mcg/ Dextrose 100 ml @ 5.565 mls/ hr [id number] IV 05/04/24 22:45 05/05/24 10:22 11.13 MLS/HR objective Gen.: Patient lying in bed in no apparent distress. On supplemental oxygen. Head: Normocephalic, atraumatic. Eyes: EOMI/PERRLA. Ears: Normal hearing. Normal anatomy. Neck/trachea: Trachea midline, supple. Nose: Normal external anatomy. Mouth: Moist mucous membranes. Chest: Decreased air entry bilaterally. No wheezing or rhonchi. Cardiovascular: Positive S1, positive S2. Regular rate and rhythm. Abdomen: Positive bowel sounds in all 4 quadrants. Soft, non-tender, non- distended. : Deferred. Rectal: Deferred. Skin: Warm, dry. Intact. Extremities: 2+ radial pulses bilaterally. No lower extremity edema. Neuro: Awake, alert, oriented x3. No gross motor or sensory deficits. Cranial nerves II through XII intact. Gait not assessed. laboratory and microbiology Laboratory Tests 05/05/24 03:38 Test 05/05/24 03:38 Range/Units Serum Glucose 132 H 74-106 mg/dL Assessment/Plan Impression: Acute hypoxic/hypercapnic respiratory failure On mechanical ventilator COPD exacerbation Morbid obesity Events: Patient tolerated CPAP today and was extubated uneventfully Placed on 10 LPM aerosol Coolmist Taper O2 as tolerated Titrate to keep O2 sats between 90-94%. Off sedation Off pressors, hemodynamically stable. Continue bronchodilators Continue IV steroids Continue antibiotics. Labs and imaging reviewed. Rest of plan as noted below. Plan: S/p extubation On supplemental oxygen Titrate to keep O2 sats between 90-94%. Off sedation Continue bronchodilators/Pulmicort. Continue steroids Continue antibiotics. Pressors if necessary for hemodynamic support Titrate to keep mean arterial pressure greater than 65 mmHg. Monitor renal function Monitor electrolytes. Supplement as necessary. Monitor ins and outs. Maintain euvolemia. Tube feeds for nutritional support GI prophylaxis. DVT prophylaxis. Prognosis: Guarded given patient's multiple co-morbidities. Condition: Critical Rest of plan per hospitalist and other consultants. A total of 35 minutes of critical care time was spent reviewing the patient record, examining the patient, making a diagnostic and therapeutic plan, discussing this plan with the medical personnel, following up on diagnostic studies and following the patient for clinical stability excluding any and all procedures. At least 50% of this time was spent in direct, [id number] contact. Thank you Dr. Arevalo, for allowing me to participate in this patient's care. Further recommendations will depend on the patient's clinical course. Please do not hesitate to contact me if you have any questions or concerns. This medical document was created using an electronic medical record system with [employer] dictation system. Although these documentations are being carefully reviewed, there may still be some phonetic and typographical changes. The errors are purely typographical, due to imperfection on the software program, and do not reflect any compromise in the patient's medical care. Dietary Evaluation Review Comments: for higher protein content and better controlled serum glucose, recommend Glucerna 40 ml/hr, (58g Pro, 1152 kcal), supplement with amino acid @41 ml/hr, the total nutrient support will be 100g pro, and 1662 kcal providing 81% of pro and 122% energy needs Expected Outcomes/Goals: off went, healing wounds and gradual wt loss. Plan discussed with: Other (ROXANNA Crews) Critical Care Time(min): 35 TARANGO,ROSENDO M MD May 05, 2024 22:33
[2024-05-06] VITALS (65 sets, daily range): BP systolic 95–176; BP diastolic 52–123; PULSE 58–118; RESP 11–27; TEMP 94.5–99.3; O2SAT 88–100
[2024-05-06 04:42] LABS: Basophils # (auto) 0.1 10 ^3/uL (0-0.2); Basophils % (auto) 0.5 % (0.0-2.0); Eosinophils # (auto) 0 10 ^3/uL (0-0.8); Eosinophils % (auto) 0.1 % (0.0-7.0); Hematocrit 39.2 % (36.0-46.0); Hemoglobin 12.9 g/dL (12.2-16.2); Lymphocytes % (auto) 8.9 % (10.0-50.0); Mean Corpuscular Hemoglobin 29.6 pg (28.0-32.0); Mean Corpuscular Hgb Conc. 32.8 g/dL (32.0-36.0); Mean Corpuscular Volume 90.1 fL (80.0-100.0); Monocytes # (auto) 0.3 10 ^3/uL (0-1.3); Monocytes % (auto) 2.7 % (0.0-12.0); Neutrophils % (auto) 87.8 % (37.0-80.0); Nucleated Red Blood Cells % 0.1 %; Platelet Count (auto) 164 10^3/uL (140-450); Red Blood Cells 4.35 10^6/uL (4.0-5.20); Red Cell Distribution Width 15.2 % (11.8-14.3); White Blood Cell 11.4 10^3/uL (4.4-10.8)
[2024-05-06 05:02] LABS: Alanine Aminotransferase 23 U/L (7-40); Alkaline Phosphatase 81 U/L (46-116); Anion Gap 9 (5-15); Aspartate Aminotransferase 15 U/L (13-40); BUN/Creatinine Ratio 24.3 (10.0-20.0); Blood Urea Nitrogen 17 mg/dL (9-23); Calcium 9.7 mg/dL (8.7-10.4); Carbon Dioxide 29 mmol/L (20-31); Chloride 104 mmol/L (98-107); Sodium 142 mmol/L (136-145)
[2024-05-06 05:03] LABS: Total Protein 6.5 g/dL (5.7-8.2)
[2024-05-06 05:06] LABS: Glucose 130 mg/dL (74-106); Potassium 3.4 mmol/L (3.5-5.1)
[2024-05-06 05:37] LABS: Bilirubin, Total 0.6 mg/dL (0.2-1.0)
--- NOTE | 2024-05-06 08:30 | DVHPNRES ---
Progress Note Date Seen: May 06, 2024 Resident Creating Document: ARON ORTIZ RESIDENT Medical Necessity Reason Pt with a Central, PICC or Fol: Yes The following are medically ne: Central Line, Corcoran Catheter Reason for corcoran catheter: Strict I&O Subjective Patient reports: No new complaints, Feels better Objective vital signs Vital Sign Date Time Temp Pulse Resp B/P (MAP) Pulse Ox O2 Delivery O2 Flow Rate FiO2 05/06/24 06:15 99.1 80 23 148/70 (96) 96 210.4 05/06/24 06:00 Nasal Cannula* 3 32 Total Intake and Output 05/05/24 05/05/24 05/06/24 15:00 23:00 07:00 Intake Total 385.738 ml 0 ml 0 ml Output Total 600 ml 1000 ml Balance 385.738 ml -600 ml -1000 ml medications Current Medications Medications Dose Ordered Sig/Vidhya Route Start Time Stop Time Status Last Admin Dose Admin Midazolam HCl 50 ml @ 1 mls/hr Q24H IV 04/23/24 11:00 05/01/24 03:46 3 MLS/HR Norepinephrine Bitartrate 250 ml @ 3.75 mls/hr Q24H IV 04/23/24 13:30 05/01/24 23:07 3.75 MLS/HR Acetaminophen 650 mg Q6HP PRN PO 04/23/24 19:45 Pantoprazole Sodium 40 mg DAILY IV 04/25/24 10:00 05/05/24 10:08 40 MG Methylprednisolone Sodium Succinate 40 mg BID IV 04/24/24 22:00 05/05/24 21:32 40 MG Enteral Nutritional Formula 1,000 ml 30ML/HR GT 04/24/24 14:45 05/01/24 19:30 1,000 ML Docusate Sodium 100 mg BID GT 04/24/24 22:00 05/05/24 10:08 100 MG Albuterol 2.5 mg Q4HR NEB 04/24/24 22:00 05/06/24 05:49 2.5 MG Ipratropium Tarkio 0.5 mg Q4HR NEB 04/24/24 22:00 05/06/24 05:49 0.5 MG Metoclopramide HCl 5 mg Q8HPRN PRN IV 04/26/24 15:45 05/04/24 10:37 5 MG Budesonide 0.5 mg Q12HR NEB 04/27/24 22:00 05/05/24 21:54 0.5 MG Piperacillin Sod/ Tazobactam Sod 100 ml @ 25 mls/hr Q8H IV 04/28/24 08:00 05/06/24 00:02 25 MLS/HR Vancomycin HCl 0 ml @ 0 mls/hr UD IV 04/29/24 14:30 Sodium Chloride 10 ml QSHIFT@10,22 IV 05/02/24 22:00 05/05/24 21:31 10 ML Propofol 100 ml @ 3.468 mls/ hr Q24H IV 05/03/24 16:45 05/05/24 10:15 10.404 MLS/HR Alprazolam 0.25 mg BID PO 05/03/24 22:00 05/05/24 10:08 0.25 MG Vancomycin HCl 100 ml @ 100 mls/hr Q12H IV 05/04/24 11:00 05/05/24 22:56 100 MLS/HR Dexmedetomidine HCl 400 mcg/ Dextrose 100 ml @ 5.565 mls/ hr [id number] IV 05/04/24 22:45 05/05/24 10:22 11.13 MLS/HR Nicotine 1 patch DAILY TD 05/06/24 10:00 Examination: GENERAL:Normal, HEENT:Normal, NECK:Normal, LUNGS:Abnormal (Bilateral rales, on 3 L of nasal cannula oxygen which is baseline), CVS:Normal, ABDOMEN:Normal, MSK:Abnormal (Bilateral leg swelling 1+ pitting edema), SKIN:Normal, NEURO:Abnormal (Anxious, adamant to go home otherwise unremarkable AAO x4) laboratory and microbiology Laboratory Tests 05/06/24 04:25 Test 05/06/24 04:25 Range/Units Serum Glucose 130 H 74-106 mg/dL Microbiology Date/Time Source Procedure Growth Status 04/24/24 12:01 Voided Urine Urine Culture - Final Complete 04/23/24 23:30 Nose MRSA Screen - Final Complete 04/23/24 11:10 Sputum Gram Stain - Final Complete 04/23/24 11:10 Sputum Respiratory Culture - Final Complete 04/23/24 08:40 Blood Blood Culture - Final NO GROWTH AFTER 5 DAYS OF INCUBATION. Complete Labs and/or images reviewed: Labs reviewed by me, Image(s) reviewed by me Problem List/Assessment/Plan Problem List/Assessment/Plan ICU Course: 53-year-old female with past medical history of COPD, tobacco dependency, polysubstance abuse, several COPD exacerbation related hospitalization, obesity, presents for evaluation of shortness for breath ongoing for one day. Patient was using her nebulizer and inhaler home without relief of the symptoms. Patient was saturating in the 70s on arrival. She was placed on BiPAP initially and became progressively more confused taking off her mask.. She was emergently intubated for airway protection. She was extubated on 05/05/2024 and on oxygen support since then. Hospitalization day: 13 A. Neurolgy: # Acute metabolic/toxic encephalopathy likely due to hypercarbia: Resolved # status post extubation: intubated, sedated, on mechanical ventilation Previously, AAO x4, passed swallow evaluation. # Tobacco abuse disorder /Tobacco dependence: Patient says she is on Wellbutrin but family denies, started the patient on nicotine patch 14 daily # Anxiety disorder: Xanax 0.25 p.o. b.i.d. B. Cardiology: # Acute on Chronic diastolic CHF: EF 55% mild fluid overloaded state, status post IV Lasix close to euvolemia. continue oral Lasix 40 mg daily # history of hypertension: Diabetic with hypertension target blood pressure 130/80 or below, initially antihypertensives held because of low blood pressure can be reintroduced C. Respiratory: # Acute on chronic hypoxic/hypercapnic respiratory failure: s/p intubation, influenza and COVID negative, now extubated. Continue to keep SpO2 88-92, smoking cessation counseling done, at baseline patient uses 3 L of nasal cannula oxygen [id number] # COPD exacerbation: Pulmonology on board, continue steroid, breathing treatment and steroids, continue IV steroid for now, we will change to oral # known COPD: Likely due to 40+ pack-year of smoking history, patient continues to smoke. Patient afebrile, tachycardic. Change albuterol to levalbuterol. # chronic smokin minutes stopping cessation counseling done at bedside # bilateral atelectasis: Continue incentive spirometry D. Gastrointenstinal: # Constipation: Patient had bowel movement unremarkable GI findings on docusate, continue with high-fiber diet with appropriate hydration # malnutrition, mild: On ensure high-protein t.i.d. continue. # Nausea on Reglan p.r.n.. # nutrition: Previously was on Jevity 30 mL/hour, when intubated, passed swallow test, lack of teeth CC/cardiac diet mechanical soft E. Geniotourinary: # patient on Corcoran's catheter: Discontinue as patient can void F. Infectious Disease: # Septic shock: Status post Levophed, vanc and Zosyn G. Hematology & Oncology: H. Nephrology: Unremarkable, producing appropriate urine on oral Lasix check I&0 closely. # mild hypokalemia: 3.4 potassium replenished, repeat BmP tomorrow I. Endocrine: # morbid obesity with a BMI 47.1, non diabetic # Vit D deficiency: Continue supplements J. MSK: # ?cellulitis: bilateral lower extremity Status post antibiotics also could be due to bilateral edema, improved. # Osteoarthritis: As needed Tylenol for xmrb-cy-tazilzer joint pain pain # ruled out DVT: D-dimer was mildly elevated, likely due to inflammatory state K. Prophylaxis: PPI: IV PPI prophylaxis >> change to oral PPI DVT: SCDs. L. Lines & Drains (with insertion date): Intubation 04/23, extubated Left IJ CVC 04/23, can be taken off Corcoran 04/23, discontinue PICC line 05/02, keep M. Drips: off of drips Levophed Versed, Diprivan , Fentanyl N. Disposition: Downgrade to telemetry Floor. Patient needs a sitter. At home patient has social support and oxygen cylinder/concentrator. Patient lives at home with son, physical therapy, social work support for appropriate discharge planning. The plan was discussed with the ICU attending Dr. Vance. critical care time 41 mins Dictated by Aron Ortiz MD with 3M MModal Fluency. Plan discussed with: Patient, Son, Other (Primary team) My Orders My Orders Orders - ARON ORTIZ RESIDENT Procedure Category Date Status Time Nicotine 14mg/24hr PHA 05/06/24 In Process (Nicoderm 14mg/24hr) 10:00 Dietary Evaluation Review Comments: for higher protein content and better controlled serum glucose, recommend Glucerna 40 ml/hr, (58g Pro, 1152 kcal), supplement with amino acid @41 ml/hr, the total nutrient support will be 100g pro, and 1662 kcal providing 81% of pro and 122% energy needs Expected Outcomes/Goals: off went, healing wounds and gradual wt loss. Date of Service: May 06, 2024 Billing Provider: ANUJ VANCE MD Common Visit Codes: 27735-[id number] CARE 30-74 MIN ARON ORTIZ RESIDENT May 06, 2024 08:30 ANUJ VANCE MD May 07, 2024 16:32
[2024-05-06] MEDS: NICOTINE 14 MG/24HR TOPICAL PATCH TD SCH (10:08)
[2024-05-06] MEDS: LORazepam 2MG/ML-1ML VIAL IV ONE (13:10)
[2024-05-06] MEDS ORDERED: FURO1TAB31 PO (14:19)
[2024-05-06] MEDS ORDERED: POTA-215 PO (14:20)
[2024-05-06] MEDS ORDERED: BUDE1AER16 IN (14:28)
--- NOTE | 2024-05-06 17:09 | ECG ---
[facility] Test Date: 2024-05-03 Test Time: 21:13:45 Pat Name: RAUL MCGILL Department: Room: 0208T Gender: F Nursing Program Coordinator: ZOFIA : 1970 Requested By: RAOUL HAYNES Order Number: [id number] Reading MD: Roman Givens Measurements Intervals [place] Rate: 51 P: 52 IN: 176 QRS: 67 QRSD: 78 T: -15 QT: 434 QTc: 400 Interpretive Statements Sinus bradycardia with marked sinus arrhythmia Possible Inferior infarct , age undetermined Electronically Signed On 05-09-2024 9:26:17 PST by Roman Givens Please click the below link to view image of tracing.
[2024-05-06] MEDS: Ensure HIGH Protein Chocolate 8oz Bottle PO SCH (21:03)
[2024-05-07] VITALS (17 sets, daily range): BP systolic 125–151; BP diastolic 73–91; PULSE 88–121; RESP 18–24; TEMP 98–99.2; O2SAT 8–100
[2024-05-07] MEDS: LORazepam 0.5 MG TAB PO ONE (02:02)
[2024-05-07] MEDS: LORazepam 2MG/ML-1ML VIAL IV ONE (02:02)
[2024-05-07 07:41] LABS: Basophils # (auto) 0.1 10 ^3/uL (0-0.2); Basophils % (auto) 0.7 % (0.0-2.0); Eosinophils # (auto) 0 10 ^3/uL (0-0.8); Eosinophils % (auto) 0.1 % (0.0-7.0); Hemoglobin 14.6 g/dL (12.2-16.2); Lymphocytes # (auto) 2.1 10 ^3/uL (0.4-5.4); Lymphocytes % (auto) 12.6 % (10.0-50.0); Mean Corpuscular Hemoglobin 29.3 pg (28.0-32.0); Mean Corpuscular Hgb Conc. 32.5 g/dL (32.0-36.0); Mean Corpuscular Volume 90.4 fL (80.0-100.0); Monocytes % (auto) 5.7 % (0.0-12.0); Neutrophils # (auto) 13.6 10 ^3/uL (1.6-8.6); Neutrophils % (auto) 80.9 % (37.0-80.0); Platelet Count (auto) 183 10^3/uL (140-450); Red Blood Cells 4.98 10^6/uL (4.0-5.20); Red Cell Distribution Width 15.5 % (11.8-14.3); White Blood Cell 16.8 10^3/uL (4.4-10.8)
--- NOTE | 2024-05-07 10:52 | DVHPNRES ---
Progress Note Date Seen: May 07, 2024 Resident Creating Document: BAUDILIO ORTIZ RESIDENT Medical Necessity Reason Pt with a Central, PICC or Fol: Yes The following are medically ne: Central Line, Corcoran Catheter Reason for corcoran catheter: Strict I&O Subjective Review of Systems Seeing the patient at bedside in 208 Patient reports: Feels better Objective vital signs Vital Sign Date Time Temp Pulse Resp B/P (MAP) Pulse Ox O2 Delivery O2 Flow Rate FiO2 05/07/24 09:49 120 20 92 05/07/24 09:43 Nasal Cannula 3.0 05/07/24 09:43 32 05/07/24 04:18 98.5 151/91 (111) 98.5 Total Intake and Output 05/06/24 05/06/24 05/07/24 15:00 23:00 07:00 Intake Total 200 ml 286 ml 600 ml Output Total 625 ml 900 ml Balance 200 ml -339 ml -300 ml medications Current Medications Medications Dose Ordered Sig/Vidhya Route Start Time Stop Time Status Last Admin Dose Admin Acetaminophen 650 mg Q6HP PRN PO 04/23/24 19:45 Pantoprazole Sodium 40 mg DAILY IV 04/25/24 10:00 05/06/24 10:07 40 MG Methylprednisolone Sodium Succinate 40 mg BID IV 04/24/24 22:00 05/06/24 21:07 40 MG Docusate Sodium 100 mg BID GT 04/24/24 22:00 05/05/24 10:08 100 MG Albuterol 2.5 mg Q4HR NEB 04/24/24 22:00 05/07/24 09:43 2.5 MG Ipratropium Rolette 0.5 mg Q4HR NEB 04/24/24 22:00 05/07/24 09:43 0.5 MG Metoclopramide HCl 5 mg Q8HPRN PRN IV 04/26/24 15:45 05/06/24 10:28 5 MG Budesonide 0.5 mg Q12HR NEB 04/27/24 22:00 05/07/24 06:25 0.5 MG Piperacillin Sod/ Tazobactam Sod 100 ml @ 25 mls/hr Q8H IV 04/28/24 08:00 05/07/24 08:31 25 MLS/HR Vancomycin HCl 0 ml @ 0 mls/hr UD IV 04/29/24 14:30 Sodium Chloride 10 ml QSHIFT@10,22 IV 05/02/24 22:00 05/06/24 21:07 10 ML Alprazolam 0.25 mg BID PO 05/03/24 22:00 05/06/24 21:07 0.25 MG Vancomycin HCl 100 ml @ 100 mls/hr Q12H IV 05/04/24 11:00 05/06/24 23:33 100 MLS/HR Nicotine 1 patch DAILY TD 05/06/24 10:00 05/06/24 10:08 1 PATCH Enteral Nutritional Formula 240 ml TIDWM PO 05/06/24 18:00 05/07/24 08:36 240 ML Furosemide 40 mg DAILY PO 05/07/24 10:00 Potassium Chloride 20 meq DAILY PO 05/07/24 10:00 Examination GENERAL:Normal, HEENT:Normal, NECK:Normal, LUNGS:Abnormal (Bilateral rales, on 3 L of nasal cannula oxygen which is baseline), CVS:Normal, ABDOMEN:Normal, MSK:Abnormal (Bilateral leg swelling 1+ pitting edema), SKIN:Normal, NEURO:Abnormal (Anxious, adamant to go home otherwise unremarkable AAO x4) laboratory and microbiology Laboratory Tests 05/07/24 06:51 05/06/24 04:25 Test 05/06/24 04:25 Range/Units Serum Glucose 130 H 74-106 mg/dL Microbiology Date/Time Source Procedure Growth Status 04/24/24 12:01 Voided Urine Urine Culture - Final Complete 04/23/24 23:30 Nose MRSA Screen - Final Complete 04/23/24 11:10 Sputum Gram Stain - Final Complete 04/23/24 11:10 Sputum Respiratory Culture - Final Complete 04/23/24 08:40 Blood Blood Culture - Final NO GROWTH AFTER 5 DAYS OF INCUBATION. Complete Labs and/or images reviewed: Labs reviewed by me, Image(s) reviewed by me Problem List/Assessment/Plan Problem List/Assessment/Plan Hospitalization: 53-year-old female with past medical history of COPD, tobacco dependency, polysubstance abuse, several COPD exacerbation related hospitalization, obesity, presents for evaluation of shortness for breath ongoing for one day. Patient was using her nebulizer and inhaler home without relief of the symptoms. Patient was saturating in the 70s on arrival. She was placed on BiPAP initially and became progressively more confused taking off her mask.. She was emergently intubated for airway protection. She was extubated on 05/05/2024 and on oxygen support since then. Patient was transferred out to the telemetry floor. PICC line 2/6 for IV access. Hospitalization day: 15 Assessment and plan: # new onset of sepsis leukocytosis: Remove Corcoran catheter, continue broad- spectrum antibiotics for now, close follow-up chest x-ray for further workup. Daily CBC with trending of WBCs. # Acute metabolic/toxic encephalopathy likely due to hypercarbia: Resolved # status post extubation: intubated, sedated, on mechanical ventilation Previously, AAO x4, passed swallow evaluation. # Tobacco abuse disorder /Tobacco dependence: Patient says she is on Wellbutrin but family denies, started the patient on nicotine patch 14 daily # Anxiety disorder: Xanax 0.25 p.o. b.i.d. # Acute on Chronic diastolic CHF: EF 55% mild fluid overloaded state, status post IV Lasix close to euvolemia. continue oral Lasix 40 mg daily # history of hypertension: Diabetic with hypertension target blood pressure 130/80 or below, initially antihypertensives held because of low blood pressure can be reintroduced # Acute on chronic hypoxic/hypercapnic respiratory failure: s/p intubation, influenza and COVID negative, now extubated. Continue to keep SpO2 88-92, smoking cessation counseling done, at baseline patient uses 3 L of nasal cannula oxygen [id number] # COPD exacerbation: Pulmonology on board, continue steroid, breathing treatment and steroids, continue IV steroid for now, we will change to oral # known COPD: Likely due to 40+ pack-year of smoking history, patient continues to smoke. Patient afebrile, tachycardic. Change albuterol to levalbuterol. Continue levalbuterol, budesonide, methylprednisolone 40 mg IV b.i.d.. Can consider reducing the dose to prednisone 40 mg daily. For 5 more days. # chronic smokin minutes stopping cessation counseling done at bedside # bilateral atelectasis: Continue incentive spirometry # Constipation: Patient had bowel movement unremarkable GI findings on docusate, continue with high-fiber diet with appropriate hydration # malnutrition, mild: On ensure high-protein t.i.d. continue. # Nausea on Reglan p.r.n.. # nutrition: Previously was on Jevity 30 mL/hour, when intubated, passed swallow test, lack of teeth CC/cardiac diet mechanical soft, t.i.d. high-protein ensure to continue # patient on Corcoran's catheter: Discontinue as patient can void. # Septic shock: Status post Levophed, vanc and Zosyn, off of Levophed,Continue IV vancomycin and Zosyn : day 9 as still having leukocytosis thankfully patient is afebrile. Maintaining map over 65. # mild leukocytosis: Could be due to the steroid usage, trend CBC daily. Afebrile. # mild hypokalemia: 3.4 potassium replenished, repeat bmp # morbid obesity with a BMI 47.1, non diabetic # Vit D deficiency: Continue supplements # ?cellulitis: bilateral lower extremity Status post antibiotics also could be due to bilateral edema, improved. # Osteoarthritis: As needed Tylenol for [id number] joint pain pain # ruled out DVT: D-dimer was mildly elevated, likely due to inflammatory state # GERD/ GI Prophylaxis: PPI: IV PPI prophylaxis >> change to oral PPI # DVT: SCDs. Disposition: Downgrade to telemetry Floor. Patient needs a sitter. At home patient has social support and oxygen cylinder/concentrator. Patient lives at home with son, physical therapy, social work support for appropriate discharge planning. Apparently patient was in hospice care for multiple comorbid condition. The plan was discussed with attending Dr. Vance. Code status: Full code. Detailed plan of care needed total 33 minutes of discussion. Patient is agreeable to the plan. Plan discussed with: Patient, Son, Other (Primary team.) My Orders My Orders Orders - BAUDILIO ORTIZ RESIDENT Procedure Category Date Status Time Pt Request For Service PT 05/06/24 Logged 11:17 Transfer Orders XFER 05/06/24 Transmitted 11:17 Fall Precautions KIKA 05/06/24 In Process Initiated 11:17 Fall Risk Precautions KIKA 05/06/[address] 11:17 Nutritional PHA 05/06/24 In Process Supplements (Ensure 18:00 Dietary Evaluation Review Comments: for higher protein content and better controlled serum glucose, recommend Glucerna 40 ml/hr, (58g Pro, 1152 kcal), supplement with amino acid @41 ml/hr, the total nutrient support will be 100g pro, and 1662 kcal providing 81% of pro and 122% energy needs Expected Outcomes/Goals: off went, healing wounds and gradual wt loss. Date of Service: May 07, 2024 Billing Provider: ANUJ VANCE MD Common Visit Codes: [id number] INP/OBS CARE(HIGH) Secondary Visit Codes: [id number] CARE PLAN 30 MINUTES BAUDILIO ORTIZ RESIDENT May 07, 2024 10:52 ANUJ VANCE MD May 08, 2024 17:50
[2024-05-07] MEDS: POTASSIUM CHL 20 Meq TABLET PO SCH (11:45)
[2024-05-07] MEDS: FUROSEMIDE 40 MG TAB PO SCH (11:47)
[2024-05-07] MEDS ORDERED: LEVALBUTEROL HCL 1.25 MG/3 ML NEB NEB SCH (12:00)
[2024-05-07] MEDS: ERGOCALCIFEROL 50,000 UNIT(1.25MG) CAP PO SCH (14:57)
--- NOTE | 2024-05-07 17:04 | DVH ---
CHEST RADIOGRAPH Indication: Lungs Technique: Single frontal view of the chest was obtained Comparison: 11/2024 FINDINGS: Lines and Tubes: Interval removal of the endotracheal and enteric tubes. Left upper extremity PICC te rminating over the proximal SVC. Lungs: Mild interstitial prominence. Linear densities of the right lung base. Obscuration of the left hemidiaphragm with left lower lung zone opacification. No pneumothorax. Cardiomediastinal contours: Mild cardiomegaly Bones: No acute osseous abnormality. IMPRESSION: Mild cardiomegaly with pulmonary vascular congestion. Left lower lung zone opacification with obscuration of the left hemidiaphragm which may be from overl sudhir cardiac silhouette with underlying pleural effusion/ atelectasis / pneumonia not excluded. Right basilar atelectasis. Left upper extremity PICC terminating over the proximal SVC. Interval removal of the endotracheal and enteric tubes.
[2024-05-07] MEDS: IPRATROPIUM BROM 0.5 MG/2.5ML INH SOL NEB SCH (18:15)
[2024-05-07] MEDS: LEVALBUTEROL HCL 1.25 MG/3 ML NEB NEB SCH (18:15)
[2024-05-07 19:59] LABS: Chloride 104 mmol/L (98-107); Sodium 141 mmol/L (136-145)
[2024-05-07 20:00] LABS: Anion Gap 8 (5-15); Calcium 9.9 mg/dL (8.7-10.4); Carbon Dioxide 29 mmol/L (20-31)
[2024-05-07 20:05] LABS: BUN/Creatinine Ratio 22.4 (10.0-20.0); Blood Urea Nitrogen 17 mg/dL (9-23)
[2024-05-07 20:10] LABS: Glucose 130 mg/dL (74-106); Potassium 3.1 mmol/L (3.5-5.1)
[2024-05-07] MEDS: POTASSIUM EFFERVESENT TAB 25 MEQ PO ONE (21:11)
[2024-05-07] MEDS: DOCUSATE ORAL LIQUID 100 MG/10 ML UD PO SCH (21:16)
[2024-05-08] VITALS (17 sets, daily range): BP systolic 110–121; BP diastolic 67–79; PULSE 75–104; RESP 18–20; TEMP 97.6–98.5; O2SAT 91–100
[2024-05-08 06:10] LABS: Basophils # (auto) 0 10 ^3/uL (0-0.2); Basophils % (auto) 0.5 % (0.0-2.0); Eosinophils # (auto) 0.1 10 ^3/uL (0-0.8); Eosinophils % (auto) 0.9 % (0.0-7.0); Hematocrit 43.5 % (36.0-46.0); Hemoglobin 14.1 g/dL (12.2-16.2); Lymphocytes # (auto) 2.5 10 ^3/uL (0.4-5.4); Lymphocytes % (auto) 27.7 % (10.0-50.0); Mean Corpuscular Hemoglobin 29.4 pg (28.0-32.0); Mean Corpuscular Hgb Conc. 32.3 g/dL (32.0-36.0); Mean Corpuscular Volume 90.9 fL (80.0-100.0); Monocytes # (auto) 0.7 10 ^3/uL (0-1.3); Monocytes % (auto) 7.3 % (0.0-12.0); Neutrophils # (auto) 5.7 10 ^3/uL (1.6-8.6); Neutrophils % (auto) 63.6 % (37.0-80.0); Nucleated Red Blood Cells % 0.1 %; Platelet Count (auto) 165 10^3/uL (140-450); Red Blood Cells 4.79 10^6/uL (4.0-5.20); Red Cell Distribution Width 15.8 % (11.8-14.3)
[2024-05-08] MEDS: predniSONE 20 MG TAB PO SCH (09:02)
[2024-05-08] MEDS: DOXYCYCLINE 100 MG TAB/CAP PO SCH (21:26)
--- NOTE | 2024-05-08 23:18 | DVHPNRES ---
Progress Note Date Seen: May 08, 2024 Resident Creating Document: BAUDILIO ORTIZ RESIDENT Medical Necessity Reason Pt with a Central, PICC or Fol: Yes The following are medically ne: Central Line, Corcoran Catheter Reason for corcoran catheter: Strict I&O Objective vital signs Vital Sign Date Time Temp Pulse Resp B/P (MAP) Pulse Ox O2 Delivery O2 Flow Rate FiO2 05/08/24 21:00 98.3 84 19 121/75 (90) 95 98.3 05/08/24 19:00 2.0 28 05/08/24 18:20 Nasal Cannula Total Intake and Output 05/07/24 05/07/24 05/08/24 15:00 23:00 07:00 Intake Total 200 ml 500 ml 105 ml Output Total 1600 ml 450 ml Balance 200 ml -1100 ml -345 ml medications Current Medications Medications Dose Ordered Sig/Vidhya Route Start Time Stop Time Status Last Admin Dose Admin Acetaminophen 650 mg Q6HP PRN PO 04/23/24 19:45 Metoclopramide HCl 5 mg Q8HPRN PRN IV 04/26/24 15:45 05/06/24 10:28 5 MG Budesonide 0.5 mg Q12HR NEB 04/27/24 22:00 05/08/24 05:54 0.5 MG Sodium Chloride 10 ml QSHIFT@10,22 IV 05/02/24 22:00 05/08/24 21:26 10 ML Alprazolam 0.25 mg BID PO 05/03/24 22:00 05/08/24 21:26 0.25 MG Nicotine 1 patch DAILY TD 05/06/24 10:00 05/08/24 09:03 1 PATCH Enteral Nutritional Formula 240 ml TIDWM PO 05/06/24 18:00 05/08/24 18:00 240 ML Furosemide 40 mg DAILY PO 05/07/24 10:00 05/08/24 09:02 40 MG Potassium Chloride 20 meq DAILY PO 05/07/24 10:00 05/08/24 09:03 20 MEQ Ergocalciferol 50,000 unit Q7D PO 05/07/24 11:00 05/07/24 14:57 50,000 UNIT Ipratropium Sherrill 0.5 mg Q6HR NEB 05/07/24 18:00 05/08/24 18:20 0.5 MG Levalbuterol HCl 0.625 mg Q6HR NEB 05/07/24 18:00 05/08/24 18:20 0.625 MG Docusate Sodium 100 mg BID PO 05/07/24 22:00 05/08/24 21:25 100 MG Prednisone 30 mg DAILY PO 05/09/24 10:00 Doxycycline Monohydrate 100 mg Q12HR PO 05/08/24 22:00 05/08/24 21:26 100 MG Examination GENERAL:Normal, HEENT:Normal, NECK:Normal, LUNGS:Abnormal (Bilateral rales, on 3 L of nasal cannula oxygen which is baseline), CVS:Normal, ABDOMEN:Normal, MSK:Abnormal (Bilateral leg swelling 1+ pitting edema), SKIN:Normal, NEURO:Abnormal (Anxious, adamant to go home otherwise unremarkable AAO x4) laboratory and microbiology Laboratory Tests 05/08/24 05:26 05/07/24 19:24 Test 05/07/24 19:24 Range/Units Serum Glucose 130 H 74-106 mg/dL Microbiology Date/Time Source Procedure Growth Status 04/24/24 12:01 Voided Urine Urine Culture - Final Complete 04/23/24 23:30 Nose MRSA Screen - Final Complete 04/23/24 11:10 Sputum Gram Stain - Final Complete 04/23/24 11:10 Sputum Respiratory Culture - Final Complete 04/23/24 08:40 Blood Blood Culture - Final NO GROWTH AFTER 5 DAYS OF INCUBATION. Complete Labs and/or images reviewed: Labs reviewed by me, Image(s) reviewed by me Problem List/Assessment/Plan Problem List/Assessment/Plan Hospitalization: 53-year-old female with past medical history of COPD, tobacco dependency, polysubstance abuse, several COPD exacerbation related hospitalization, obesity, presents for evaluation of shortness for breath ongoing for one day. Patient was using her nebulizer and inhaler home without relief of the symptoms. Patient was saturating in the 70s on arrival. She was placed on BiPAP initially and became progressively more confused taking off her mask.. She was emergently intubated for airway protection. She was extubated on 05/05/2024 and on oxygen support since then. Patient was transferred out to the telemetry floor. PICC line 2/6 for IV access. Continuing PT and SW input pending for discharge with home hospice. Hospitalization day: 16 Assessment and plan: # new onset of sepsis leukocytosis: Remove Corcoran catheter, continue broad- spectrum antibiotics for now, close follow-up chest x-ray for further workup. Daily CBC with trending of WBCs. # Acute metabolic/toxic encephalopathy likely due to hypercarbia: Resolved # status post extubation: intubated, sedated, on mechanical ventilation Previously, AAO x4, passed swallow evaluation. # Tobacco abuse disorder /Tobacco dependence: Patient says she is on Wellbutrin but family denies, started the patient on nicotine patch 14 daily # Anxiety disorder: Xanax 0.25 p.o. b.i.d. # Acute on Chronic diastolic CHF: EF 55% mild fluid overloaded state, status post IV Lasix close to euvolemia. continue oral Lasix 40 mg daily # history of hypertension: Diabetic with hypertension target blood pressure 130/80 or below, initially antihypertensives held because of low blood pressure can be reintroduced # Acute on chronic hypoxic/hypercapnic respiratory failure: s/p intubation, influenza and COVID negative, now extubated. Continue to keep SpO2 88-92, smoking cessation counseling done, at baseline patient uses 3 L of nasal cannula oxygen [id number] # COPD exacerbation: Pulmonology on board, continue steroid, breathing treatment and steroids, continue IV steroid for now, we will change to oral # known COPD: Likely due to 40+ pack-year of smoking history, patient continues to smoke. Patient afebrile, tachycardic. Change albuterol to levalbuterol. Continue levalbuterol, budesonide, methylprednisolone 40 mg IV b.i.d>prednisone 40 mg daily>30 mg daily. # chronic smokin minutes stopping cessation counseling done at bedside # bilateral atelectasis: Continue incentive spirometry # Constipation: Patient had bowel movement unremarkable GI findings on docusate, continue with high-fiber diet with appropriate hydration # malnutrition, mild: On ensure high-protein t.i.d. continue. # Nausea on Reglan p.r.n.. # nutrition: Previously was on Jevity 30 mL/hour, when intubated, passed swallow test, lack of teeth CC/cardiac diet mechanical soft, t.i.d. high-protein ensure to continue # patient on Corcoran's catheter: Discontinue as patient can void. # Septic shock: Status post Levophed, vanc and Zosyn, off of Levophed,Continue IV vancomycin and Zosyn : day 10, changed to doxycycline oral for 7 days. Maintaining map over 65. # mild leukocytosis: Could be due to the steroid usage, trend CBC daily. Afebrile. # mild hypokalemia: 3.4 potassium replenished, repeat bmp # morbid obesity with a BMI 47.1, non diabetic # Vit D deficiency: Continue supplements # ?cellulitis: bilateral lower extremity Status post antibiotics also could be due to bilateral edema, improved. # Osteoarthritis: As needed Tylenol for [id number]-[id number] joint pain pain # ruled out DVT: D-dimer was mildly elevated, likely due to inflammatory state # GERD/ GI Prophylaxis: oral PPI # DVT ppx: SCDs. # ICU myopathy: b/l lower limb weakness, on PT in hospital agreeable to PT : snf for rehab if patient does not have good caregiver support at home. Disposition: Stable telemetry Floor with a sitter for 2 days. Downgrade to Med- Surg. At home patient has social support and oxygen cylinder/concentrator. Patient lives at home with son, physical therapy, social work support for appropriate discharge planning. Apparently patient was in hospice care for multiple comorbid condition. SW consulted for home hospice placement planning. Continue PT. The patient denies to go for a facility. The plan was discussed with attending Dr. Vance. Code status: Full code. Detailed plan of care needed total 35 minutes of discussion. Patient is agreeable to the plan. Plan discussed with: Patient, Other My Orders My Orders Orders - BAUDILIO ORTIZ RESIDENT Procedure Category Date Status Time Discontinue Corcoran KIKA 05/08/24 In Process Catheter 20:50 * Tool Storage Attendant CONS 05/08/24 Transmitted Consult Complete Blood Count LAB 05/09/24 Verified 04:00 Basic Metabolic Panel LAB 05/09/24 Verified 04:00 Dietary Evaluation Review Comments: for higher protein content and better controlled serum glucose, recommend Glucerna 40 ml/hr, (58g Pro, 1152 kcal), supplement with amino acid @41 ml/hr, the total nutrient support will be 100g pro, and 1662 kcal providing 81% of pro and 122% energy needs Expected Outcomes/Goals: off went, healing wounds and gradual wt loss. Date of Service: May 08, 2024 Billing Provider: ANUJ VANCE MD Common Visit Codes: 72485-[id number] INP/OBS CARE(HIGH) Secondary Visit Codes: [id number] CARE PLAN 30 MINUTES BAUDILIO ORTIZ RESIDENT May 08, 2024 23:18 ANUJ VANCE MD May 09, 2024 13:10
[2024-05-09] VITALS (11 sets, daily range): BP systolic 105–127; BP diastolic 54–77; PULSE 84–100; RESP 18–20; TEMP 97.7–98.8; O2SAT 92–97
[2024-05-09] MEDS: POTASSIUM EFFERVESENT TAB 25 MEQ PO ONE (00:36)
[2024-05-09 06:41] LABS: Anion Gap 7 (5-15); Calcium 9.8 mg/dL (8.7-10.4); Chloride 102 mmol/L (98-107); Sodium 142 mmol/L (136-145)
[2024-05-09 06:43] LABS: Basophils # (auto) 0.1 10 ^3/uL (0-0.2); Basophils % (auto) 0.7 % (0.0-2.0); Eosinophils # (auto) 0.1 10 ^3/uL (0-0.8); Hematocrit 40.7 % (36.0-46.0); Hemoglobin 13.1 g/dL (12.2-16.2); Lymphocytes # (auto) 2.5 10 ^3/uL (0.4-5.4); Lymphocytes % (auto) 25.7 % (10.0-50.0); Mean Corpuscular Hemoglobin 29.3 pg (28.0-32.0); Mean Corpuscular Hgb Conc. 32.3 g/dL (32.0-36.0); Mean Corpuscular Volume 90.6 fL (80.0-100.0); Monocytes # (auto) 0.7 10 ^3/uL (0-1.3); Neutrophils # (auto) 6.5 10 ^3/uL (1.6-8.6); Neutrophils % (auto) 65.6 % (37.0-80.0); Nucleated Red Blood Cells % 0.1 %; Platelet Count (auto) 149 10^3/uL (140-450); Red Blood Cells 4.49 10^6/uL (4.0-5.20); Red Cell Distribution Width 15.4 % (11.8-14.3); White Blood Cell 9.9 10^3/uL (4.4-10.8)
[2024-05-09 06:47] LABS: BUN/Creatinine Ratio 31.2 (10.0-20.0); Glucose 83 mg/dL (74-106)
[2024-05-09 06:49] LABS: Blood Urea Nitrogen 24 mg/dL (9-23); Carbon Dioxide 33 mmol/L (20-31); Potassium 3.1 mmol/L (3.5-5.1)
[2024-05-09] MEDS: predniSONE 20 MG TAB PO SCH (09:44)
[2024-05-09] MEDS ORDERED: PRED20TA2 PO (17:32)
[2024-05-09] MEDS ORDERED: DOX100T PO (17:32)
[2024-05-09] MEDS ORDERED: ERGO1CAP23 PO (17:32)
[2024-05-09] MEDS ORDERED: NICO14DI9 TD (17:32)
--- NOTE | 2024-05-09 17:33 | DVHDSRES ---
Discharge Summary Date of Admission Resident Creating Document: BAUDILIO ORTIZ RESIDENT Apr 23, 2024 at 19:41 Date of Discharge: May 09, 2024 Admitting Diagnosis Acute on chronic hypoxic/hypercarbic respiratory failure needing intubation secondary to COPD exacerbation Labs/Diagnostic Data: Laboratory Results Test 05/09/24 05:14 05/06/24 04:25 05/05/24 22:13 05/05/24 14:50 White Blood Count 9.9 10^3/uL (4.4-10.8) Red Blood Count 4.49 10^6/uL (4.0-5.20) Hemoglobin 13.1 g/dL (12.2-16.2) Hematocrit 40.7 % (36.0-46.0) Mean Corpuscular Volume 90.6 fL (80.0-100.0) Mean Corpuscular Hemoglobin 29.3 pg (28.0-32.0) Mean Corpuscular Hemoglobin Concent 32.3 g/dL (32.0-36.0) Red Cell Distribution Width 15.4 % (11.8-14.3) Platelet Count 149 10^3/uL (140-450) Mean Platelet Volume 10.1 fL (6.9-10.8) Neutrophils (%) (Auto) 65.6 % (37.0-80.0) Lymphocytes (%) (Auto) 25.7 % (10.0-50.0) Monocytes (%) (Auto) 7.0 % (0.0-12.0) Eosinophils (%) (Auto) 1.0 % (0.0-7.0) Basophils (%) (Auto) 0.7 % (0.0-2.0) Neutrophils # (Auto) 6.5 10 ^3/uL (1.6-8.6) Lymphocytes # (Auto) 2.5 10 ^3/uL (0.4-5.4) Monocytes # (Auto) 0.7 10 ^3/uL (0-1.3) Eosinophils # (Auto) 0.1 10 ^3/uL (0-0.8) Basophils # (Auto) 0.1 10 ^3/uL (0-0.2) Nucleated Red Blood Cells 0.1 % Sodium Level 142 mmol/L (136-145) Potassium Level 3.1 mmol/L (3.5-5.1) Chloride Level 102 mmol/L (98-107) Carbon Dioxide Level 33 mmol/L (20-31) Anion Gap 7 (5-15) Blood Urea Nitrogen 24 mg/dL (9-23) Creatinine 0.77 mg/dL (0.550-1.02) Glomerular Filtration Rate Calc 91 mL/min (>90) BUN/Creatinine Ratio 31.2 (10.0-20.0) Serum Glucose 83 mg/dL (74-106) Calcium Level 9.8 mg/dL (8.7-10.4) Magnesium Level 2.0 mg/dL (1.6-2.6) Total Bilirubin 0.6 mg/dL (0.2-1.0) Aspartate Amino Transferase (AST) 15 U/L (13-40) Alanine Aminotransferase (ALT) 23 U/L (7-40) Alkaline Phosphatase 81 U/L (46-116) Total Protein 6.5 g/dL (5.7-8.2) Albumin 4.0 g/dL (3.2-4.8) Vancomycin Level Trough 15.1 ug/mL (5-10) Blood Gas Specimen Type Arterial Blood Gas Sample Site Right radial Blood Gas Patient Temperature 37.0 Arterial Blood Date Drawn [id number] Arterial Blood pH 7.389 (7.350-7.450) Arterial Blood Partial Pressure CO2 42.3 mmHg (32.0-45.0) Arterial Blood Partial Pressure O2 82.3 mmHg (83.0-108.0) Arterial Blood HCO3 25.0 mmol/L (21.0-28.0) Arterial Blood Oxygen Saturation 94.8 % (94.0-98.0) Arterial Blood Base Excess -0.1 mmol/L (-2.0-3.0) Arterial Blood Oxyhemoglobin 94.0 % (94.0-98.0) Arterial Blood Carboxyhemoglobin 0.3 % (0.5-1.5) Arterial Blood Methemoglobin 0.5 % (0.0-1.5) Song Test Modified Blood Gas Total Hemoglobin 13.90 g/dL (12.0-16.0) Blood Gas Modality Vent - cpap FiO2 % 45.0 Blood Gas Pressure Support 8 Blood Gas PEEP or CPAP 5.0 Test 05/05/24 06:13 05/02/24 03:13 05/01/24 20:57 04/28/24 03:09 Blood Gas Set Respiration Rate 22.0 Blood Gas Tidal Volume 450.0 Differential Total Cells Counted 100.0 (100) Neutrophils % (Manual) 88 (37.0-80.0) Band Neutrophils % (Manual) 0 Lymphocytes % (Manual) 9 (10.0-50.0) Monocytes % (Manual) 3 (0-12) Eosinophils % (Manual) 0 (0-7) Basophils % (Manual) 0 (0.0-2.0) Metamyelocytes % (manual) 0 Myelocytes % (Manual) 0 Promyelocytes % (Manual) 0 Blast Cells % (Manual) 0 Reactive Lymphocytes 0 Platelet Estimate [place] Large Platelets Few Prothrombin Time 11.2 sec (9.3-11.8) Prothrombin Time INR 1.06 (0.9-1.15) Activated Partial Thromboplast Time 23.4 SEC (24.5-34.5) Random Vancomycin Level 16.3 ug/mL (5-10) Anisocytosis (manual) Slight Test 04/27/24 08:50 04/24/24 13:00 04/24/24 12:01 04/24/24 11:38 Lactic Acid Level 1.2 mmol/L (0.4-2.0) Thyroid Stimulating Hormone (TSH) 3.87 uIU/mL (0.55-4.78) Urine Opiates Screen Neg (NEGATIVE) Urine Fentanyl Screen Neg (NEGATIVE) Urine Barbiturates Screen Neg (NEGATIVE) Urine Phencyclidine Screen Neg (NEGATIVE) Urine Amphetamines Screen Neg (NEGATIVE) Urine Benzodiazepines Screen Pos (NEGATIVE) Urine Cocaine Screen Neg (NEGATIVE) Urine Cannabinoids Screen Neg (NEGATIVE) D-Dimer, Quantitative 2.84 mg/L FEU (0.0-0.49) Hemoglobin A1c 5.4 % A1C (<5.7) B-Type Natriuretic Peptide 25.70 pg/mL (0-100) Vitamin B12 Level 319 pg/mL (211-911) Test 04/24/24 11:34 04/23/24 12:23 04/23/24 11:13 04/23/24 10:43 Vitamin D 25-Hydroxy 14.2 ng/mL (30.0-100) Blood Gas Critical Value Read Back Yes Blood Gas Notified Whom Md gil worthington Blood Gas Notified Time [id number] Blood Gas Notified By Healthcare Facility Administrator juarez quintero Urine Color Colorless (Yellow) Urine Clarity Clear (Clear) Urine pH 6.0 (5.0-9.0) Urine Specific [place] 1.007 (1.001-1.035) Urine Protein Negative (Negative) Urine Ketones Negative (Negative) Urine Blood Negative /uL (Negative) Urine Nitrite Negative (Negative) Urine Bilirubin Negative (Negative) Urine Urobilinogen Normal mg/dL (Negative) Urine Leukocyte Esterase Negative /uL (Negative) Urine RBC 1 /hpf (0 - 4) Urine Microscopic WBC 2 /HPF (0-5) Urine Squamous Epithelial Cells None seen /hpf (<5) Urine Bacteria None seen /hpf (None Seen) Urine Glucose Normal mg/dL (Normal) Blood Gas EPAP 7 Blood Gas IPAP 15 Test 04/23/24 08:25 04/23/24 07:37 Troponin I High Sensitivity 4 ng/L (</=34) Influenza Type A Antigen Negative (Negative) Influenza Type B Antigen Negative (Negative) SARS-CoV-2 Antigen (Rapid) Negative (NEGATIVE) Other Laboratory Tests 05/09/24 05:14 Brief Hx & Hospital Course: Hospitalization: Ms. Urena, a 53-year-old female with past medical history of COPD, tobacco dependency, polysubstance abuse, several COPD exacerbation related hospitalization, obesity, presents for evaluation of shortness for breath ongoing for one day. Patient was using her nebulizer and inhaler home without relief of the symptoms. Patient was saturating in the 70s on arrival. She was placed on BiPAP initially and became progressively more confused taking off her mask.. She was emergently intubated for airway protection. She was extubated on 05/05/2024 and on oxygen support since then. Patient was transferred out to the telemetry floor. PICC line 2/6 for IV access, removed at discharge. Continuing PT and SW input pending for discharge with home hospice but [facility] will not take patient back on Hospice, patient is pending for [facility] health approval only with auth from [employer]. Medical conditions treated in hospital: # Leukocytosis from 01/2025 subsided, unlikely new onset of infection , afebrile hemodynamically stable. # Acute metabolic/toxic encephalopathy likely due to hypercarbia: Resolved # status post extubation and mechanical ventilation # Tobacco abuse disorder /Tobacco dependence discharge patient on nicotine patch 14 daily , 11 minute smoking cessation counseling done. # Anxiety disorder: Xanax 0.25 p.o. b.i.d. Patient is not tolerating well, we will advice to start home Wellbutrin at discharge. # Acute on Chronic diastolic CHF continue oral Lasix 40 mg daily # history of hypertension: Diabetic with hypertension target blood pressure 130/80 or below # Acute on chronic hypoxic/hypercapnic respiratory failure , at baseline patient uses 3 L of nasal cannula oxygen [id number] # COPD exacerbation continue 40 mg daily prednisone for 5 more days. Continue home inhaler and smoking cessation. Follow up with pulmonology as outpatient # known COPD likely due to 40+ pack-year of smoking history. # bilateral atelectasis Improved with incentive spirometry and ambulation. Be # constipation resolved # malnutrition, mild ensure high-protein t.i.d. continue. # Nausea on Reglan p.r.n.. # patient on Georges's catheter: Discontinue as patient can void. # Septic shock resolved Maintaining map over 65. total 10 days of IV vancomycin and Zosyn. # mild hypokalemia, replenished. # morbid obesity with a BMI 47.1, non diabetic # Vit D deficiency On supplements # likely cellulitis resolved with IV antibiotics # Osteoarthritis on Tylenol for [id number] joint pain pain # ruled out DVT: D-dimer was mildly elevated, likely due to inflammatory state # GERD continue home PPI, lifestyle modification for GERD. Disposition: At home patient has social support and oxygen cylinder/concentrator. Patient lives at home with son, physical therapy, social work support for appropriate discharge planning. Patient is discharged home with son who brought portable oxygen cylinder. Discharge planning needed total 47 minutes of detailed discussion and planning. Patient and family is agreeable to the plan. PCP and Pulm follow up in a week. Continue 5 days of oral Prednisone 40 mg daily at discharge along with the medications as per MAY. Discussed with Dr. Marcial. Consults/Reason for consult Pulmonology Operations or Procedures [address] [address] Ph: [phone] DIAGNOSTIC IMAGING Diagnostic Imaging Report : [id number] Signed PATIENT: RAUL URENA ACCT: [id number] UNIT: [id number] : 1970 LOC: CENTRAL ROOM / BED: 0208T / A AGE / SEX: 53 / F ADM STATUS: ADM IN SERVICE 1626 ORDERING PHYSICIAN: BAUDILIO ORTIZ PROCEDURE(s): CXR1 - CHEST XRAY 1 VIEW REASON: Lungs ORDER NUMBER(s): [id number], ACCESSION NUMBER(s): [id number] CHEST RADIOGRAPH Indication: Lungs Technique: Single frontal view of the chest was obtained Comparison: 11/2024 FINDINGS: Lines and Tubes: Interval removal of the endotracheal and enteric tubes. Left upper extremity PICC terminating over the proximal SVC. Lungs: Mild interstitial prominence. Linear densities of the right lung base. Obscuration of the left hemidiaphragm with left lower lung zone opacification. No pneumothorax. Cardiomediastinal contours: Mild cardiomegaly Bones: No acute osseous abnormality. IMPRESSION: Mild cardiomegaly with pulmonary vascular congestion. Left lower lung zone opacification with obscuration of the left hemidiaphragm which may be from overlying cardiac silhouette with underlying pleural effusion/ atelectasis / pneumonia not excluded. Right basilar atelectasis. Left upper extremity PICC terminating over the proximal SVC. Interval removal of the endotracheal and enteric tubes. ATED BY: FRANCES WELLINGTON DO DICTATED DATE/TIME: 05/07/241700 SIGNED BY: FRANCES WELLINGTON DO SIGNED DATE/TIME: 05/07/241700 CC: [place] [id number] Ph: [phone] DIAGNOSTIC IMAGING Diagnostic Imaging Report : [id number] Signed PATIENT: RAUL URENA ACCT: [id number] UNIT: [id number] : 1970 LOC: ICU [place] ROOM / BED: 0112- / A AGE / SEX: 53 / F ADM STATUS: ADM IN SERVICE 1431 ORDERING PHYSICIAN: RAOUL HAYNES PROCEDURE(s): BLDVT - BiLat Lower DVT REASON: rule out DVT ORDER NUMBER(s): [id number], ACCESSION NUMBER(s): [id number] BILATERAL LOWER EXTREMITY VENOUS DOPPLER CLINICAL HISTORY: rule out DVT Technique: Duplex Doppler evaluation of the deep venous systems of both lower extremities from the common femoral veins to the popliteal veins including color Doppler and spectral/pulsed waveform analysis was performed. COMPARISON: None FINDINGS: The right and left common femoral, superficial femoral, popliteal, posterior tibial veins and trifurcations appear patent with normal augmentation, phasicity, compressibility and color-flow. IMPRESSION: 1. There is no sonographic evidence for DVT in the lower extremities. HS:Y ATED BY: WERNER ROWLAND MD DICTATED DATE/TIME: 04/24/241513 SIGNED BY: WERNER ROWLAND MD SIGNED DATE/TIME: 04/24/241513 CC: EKG Name: RAUL URENA Acct: [id number] [place] [address] ELECTROCARDIOGRAM REPORT PATIENT: RAUL URENA ACCT: [id number] : 1970 LOC: TELE-CENTR ROOM / BED: [facility] / AGE / SEX: 53 / F ADM STATUS: ADM IN SERVICE 53 UNIT: [id number] ORDERING PHYSICIAN: RAOUL HAYNES RESIDENT PROCEDURE(s): EKG - ELECTROCARDIGRAM ORDER NUMBER(s): [id number], ACCESSION NUMBER(s): [id number] [facility] Test Date: 2024-05-03 Test Time: 21:13:45 Pat Name: RAUL URENA Department: Room: [facility] Gender: F Financial Services Manager: ZOFIA : 1970 Requested By: RAOUL HAYNES Order Number: [id number] Reading MD: China Moran Measurements Intervals [place] Rate: 51 P: 52 IL: 176 QRS: 67 QRSD: 78 T: -15 QT: 434 QTc: 400 Interpretive Statements Sinus bradycardia with marked sinus arrhythmia Possible Inferior infarct , age undetermined Electronically Signed On 05-09-2024 9:26:17 PST by China Moran Please click the below link to view image of tracing. DICTATED BY:CHINA MORAN Sr., MD DICTATED DATE/TIME:05/03/242112 ELECTRONICALLY SIGNED BY:CHINA MORAN Sr., MD 05/09/24 0931 ELECTRONICALLY CO-SIGNED BY: [facility] [id number] [place] [address] Ph: [phone] DIAGNOSTIC IMAGING Diagnostic Imaging Report : [id number] Signed PATIENT: RAUL URENA ACCT: [id number] UNIT: [id number] : 1970 LOC: ICU [place] ROOM / BED: [address] [place] [address] / A AGE / SEX: 53 / F ADM STATUS: ADM IN SERVICE 1144 ORDERING PHYSICIAN: HERMILO MENDEZ PROCEDURE(s): ECIDC - ECHO 2D MODE CARDIAC DOP REASON: ? chf ORDER NUMBER(s): [id number], ACCESSION NUMBER(s): [id number] APPROVED REPORT EXAM: LIMITED Two-dimensional and M-mode echocardiogram with Doppler and color Doppler. Blood Pressure: 112/64 mmHg INDICATION ? CHF RISK FACTORS Height: 63, Weight: 265 DIMENSIONS LVDd 3.5 (3.8-5.7cm) LA (2D) 4.4 (1.9-4.0cm) Aortic Root 2.7 (2.0- 3.7cm) LVDs 2.6 (2.5-4.0cm) LA (MM) (1.9-4.0cm) Aortic Cusp Exc 1.4 (1.5- 2.0cm) EF (%) 55.0 (55-70%) Rt. Atrium 4.1 (1.9-4.0cm) Asc. Aorta cm Mitral Valve Mitral Mitral Stenosis E/A ratio 0.0 2D MVA cm2 Aortic Valve Aortic Valve Aortic Stenosis LVOT Diameter 1.9 (1.8-2.4cm) Doppler JEANMARIE cm2 Pulmonic Valve V2 1.19m/s LEFT VENTRICLE The left ventricle is of normal size. Wall thickness is not adequately assessed. The ejection fraction is likely normal and is estimated at 55%. Endocardial definition is inadequate to assess for wall motion abnormalities. Diastolic function is not assessed. RIGHT VENTRICLE Not well visualized. ATRIA Not well visualized. MITRAL VALVE Not well visualized. No significant mitral regurgitation. PULMONIC VALVE Not visualized. TRICUSPID VALVE Not well visualized. PA systolic pressure is not adequately estimated. AORTIC VALVE Not well visualized. GREAT VESSELS Not well visualized. PERICARDIAL EFFUSION No significant pericardial effusion. IVC is dilated in size. Other Information Technically limited study due to body habitus and patient on a vent. Conclusion The study is very technically limited. Normal left ventricular size and systolic function. Ejection fraction is estimated at 55%. The right ventricle isn't well visualized. The study is inadequate to assess for valvular function. No pericardial effusion. SIGNED BY: JAVAN VARMA MD SIGNED DATE/TIME: 04/24/24 0386 CC: Condition at Discharge: Guarded Final Diagnosis/Problems List Acute 0n chronic hypoxic respiratory failure. COPD excerbation. Discharge Disposition: Home Discharge Instruct/Medications Diet: Cardiac 2g Na,low cholest Activity: No Restrictions, As Tolerated Follow Up/Referral: Please follow up with your PCP and Broadcast Operations Engineer in a week. Medications: as per MAY Discharge Statement: "Patient was advised to return to the ER or call 911 if any headaches, dizziness, shortness of breath, chest pain, abdominal pain, bleeding, fevers, or worsening of medical condition. Patient was counseled about treatment plan, medications, possible side effects, patientverbalized understanding. All questions were answered to the best of my ability. This discharge took greater then 30 minutes in planning, reviewing documentation, counseling the patient, and discussing with other team members." ASSESSMENT ASSESSMENT Assessment Acute 0n chronic hypoxic respiratory failure. COPD excerbation. Date of Service: May 09, 2024 Billing Provider: ANUJ MARCIAL MD Common Visit Codes: 77973-EPJ/OBS DISCH DAY >30min BAUDILIO ORTIZ RESIDENT May 09, 2024 17:33 ANUJ MARCIAL MD May 12, 2024 17:54
== END 2024-05-09 19:45 | disposition home or self-care (01) | DRG 870 ==
LOC: ER 07:21 → EDBD 07:21 → TELE 19:41 → ICU WEST 22:30 → TELE-CENTR 05-06 20:50 → TELE 05-07 14:32 → CENTRAL 05-07 14:37 → OVERFLOW 05-08 12:36 → TELE-CENTR 05-08 13:14 → CENTRAL 05-09 11:37
PROVIDERS: ADMIT Internal Medicine; ATTEND Internal Medicine
PROC: 5A1955Z Respiratory Ventilation, Greater than 96 Consecutive Hours (ICD-10-PCS; principal; 2024-04-23)
PROC: 02HV33Z Insertion of Infusion Device into Superior Vena Cava, Percutaneous Approach (ICD-10-PCS; 2024-04-23)
PROC: 0BH17EZ Insertion of Endotracheal Airway into Trachea, Via Natural or Artificial Opening (ICD-10-PCS; 2024-04-23)
PROC: 5A09357 Assistance with Respiratory Ventilation, Less than 24 Consecutive Hours, Continuous Positive Airway Pressure (ICD-10-PCS; 2024-04-23)
PROC: 02HV33Z Insertion of Infusion Device into Superior Vena Cava, Percutaneous Approach (ICD-10-PCS; 2024-05-02)
PROC: B548ZZA Ultrasonography of Superior Vena Cava, Guidance (ICD-10-PCS; 2024-05-02)
PROC: 02HV33Z Insertion of Infusion Device into Superior Vena Cava, Percutaneous Approach (ICD-10-PCS; 2024-05-02)
PROC: B548ZZA Ultrasonography of Superior Vena Cava, Guidance (ICD-10-PCS; 2024-05-02)
DX: A41.9 Sepsis, unspecified organism (principal); G92.8 Other toxic encephalopathy; R65.21 Severe sepsis with septic shock; J96.21 Acute and chronic respiratory failure with hypoxia; I50.33 Acute on chronic diastolic (congestive) heart failure; J96.22 Acute and chronic respiratory failure with hypercapnia; J44.1 Chronic obstructive pulmonary disease with (acute) exacerbation; L03.90 Cellulitis, unspecified; Z68.42 Body mass index [BMI] 45.0-49.9, adult; E44.1 Mild protein-calorie malnutrition; J98.11 Atelectasis; Z20.822 Contact with and (suspected) exposure to COVID-19; E66.01 Morbid (severe) obesity due to excess calories; E55.9 Vitamin D deficiency, unspecified; F17.200 Nicotine dependence, unspecified, uncomplicated; F41.9 Anxiety disorder, unspecified; K59.00 Constipation, unspecified; E87.6 Hypokalemia; K21.9 Gastro-esophageal reflux disease without esophagitis; M19.09 Primary osteoarthritis, other specified site; Z88.1 Allergy status to other antibiotic agents; Z71.6 Tobacco abuse counseling; Z79.899 Other long term (current) drug therapy
CPT/HCPCS: 31500; 36415; 36556; 36569; 36600; 71045; 76937; 80048; 80053; 80202; 80307; 81001; 82306; 82565; 82607; 82805; 83036; 83605; 83735; 83880; 84132; 84443; 84484; 85007; 85025; 85027; 85379; 85610; 85730; 87040; 87070; 87081; 87086; 87205; 87426; 87804; 93005; 93306; 93970; 94002; 94003; 94640; 94644; 94660; 97116; 97163; 97530; 99291; 99292; G0378; J2250; J2470; J2543; J2704; J3480; J7060